=== PATIENT | male | born 1980 | race Caucasian/White ===

== ENCOUNTER 2016-07-25 19:14 | Inpatient (IN) | payer BC ==
[~2016-07-25] VITALS: Ht 198.1 cm; Wt 107.5 kg
[~2016-07-25 19:14] MED LIST: BACT2CRE TOP; CIPR500T4 PO; DOXY100T PO; LINE1TAB22 PO; LISI-363 PO; LORTA10 PO; ST J81CH PO
[2016-07-25 19:16] VITALS: BP 179/121; PULSE 90; RESP 14; TEMP 98.1; O2SAT 98
[2016-07-25] MEDS ORDERED: AMLO5TAB2 PO (20:17)
[2016-07-25] MEDS ORDERED: VENL37.5 PO (20:17)
[2016-07-25] MEDS ORDERED: SUBO8MIS SL (20:17)
[2016-07-25] MEDS ORDERED: LISI-515 PO (20:17)
[2016-07-25] MEDS ORDERED: amLODIPine BESYLATE 5 MG TAB PO ONE (20:30)
[2016-07-25] MEDS ORDERED: LISINOPRIL 20 MG TAB PO ONE (20:30)
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
[2016-07-25 20:45] LABS: AUTOMATED NEUTROPHIL # 3.5 TH/MM3 (1.8-7.7); BASOPHIL % 0.5 % (0.0-2.0); EOSINOPHIL # 0.2 TH/MM3 (0-0.4); EOSINOPHIL % 2.7 % (0.0-4.0); HEMATOCRIT 38.8 % (39.0-51.0); HEMO FLAGS DIFF FINAL; LYMPH % 37.8 % (9.0-44.0); LYMPHOCYTE # 2.8 TH/MM3 (1.0-4.8); MEAN CELL VOLUME 90.6 FL (80.0-100.0); MEAN CORPUSCULAR HEMOGLOBIN 31.1 PG (27.0-34.0); MEAN CORPUSCULAR HGB CONC 34.4 % (32.0-36.0); MONO % 11.5 % (0.0-8.0); NEUT % 47.5 % (16.0-70.0); PLATELET COUNT 242 TH/MM3 (150-450); RED BLOOD COUNT 4.28 MIL/MM3 (4.50-5.90); WHITE BLOOD COUNT 7.4 TH/MM3 (4.0-11.0)
[2016-07-25 20:51] LABS: BLOOD, URINE NEG (NEG); COMMENT (UR) CULT NOT INDICATED; CULTURE IF INDICATED CULT NOT INDICATED; GLUCOSE,URINE NEG (NEG); KETONE, URINE NEG (NEG); NITRITE,URINE NEG (NEG); PH, URINE 5.5 (5.0-8.5); URINE COLOR YELLOW (YELLW/STRAW)
[2016-07-25 20:56] LABS: AMPHETAMINE, URINE NEG (NEG); BARBITURATES, URINE NEG (NEG); COCAINE, URINE NEG (NEG)
[2016-07-25 21:06] LABS: ALKALINE PHOSPHATASE 72 U/L (45-117); ALT (GPT) 58 U/L (12-78); ANION GAP 8 MEQ/L (5-15); AST (GOT) 28 U/L (15-37); BICARBONATE 27.3 MEQ/L (21.0-32.0); BLOOD UREA NITROGEN 24 MG/DL (7-18); CHLORIDE 104 MEQ/L (98-107); GLOMERULAR FILTRATION RATE 53 ML/MIN (>89); SODIUM (NA) 139 MEQ/L (136-145); TOTAL BILIRUBIN ADULT 0.4 MG/DL (0.2-1.0)
--- NOTE | 2016-07-25 21:06 | PD ---
Data Data Last Documented VS Vital Signs Date Time Temp Pulse Resp B/P Pulse Ox O2 Delivery O2 Flow Rate FiO2 07/25/16 23:03 68 16 148/98 97 Room Air 07/25/16 19:16 98.1 Orders Complete Blood Count With Diff (07/25/16 19:44) Comprehensive Metabolic Panel (07/25/16 19:44) Urinalysis - C+S If Indicated (07/25/16 19:44) Iv Access Insert/Monitor (07/25/16 19:44) Psych Screen (07/25/16 19:44) Drug Screen, Random Urine (07/25/16 19:44) Alcohol (Ethanol) (07/25/16 19:44) Salicylates (Aspirin) (07/25/16 19:44) Tylenol (Acetaminophen) (07/25/16 19:44) Vascular Access Team Consult PRN (07/25/16 20:05) Vascular Poc Ultrasound (07/25/16 ) Lisinopril (Prinivil) (07/25/16 20:30) Amlodipine (Norvasc) (07/25/16 20:30) Sodium Chlor 0.9% 1000 Ml Inj (Ns 1000 M (07/25/16 21:15) Labs Laboratory Tests Test 07/25/16 07/25/16 20:25 20:30 White Blood Count 7.4 TH/MM3 Red Blood Count 4.28 MIL/MM3 Hemoglobin 13.3 GM/DL Hematocrit 38.8 % Mean Corpuscular Volume 90.6 FL Mean Corpuscular Hemoglobin 31.1 PG Mean Corpuscular Hemoglobin 34.4 % Concent Red Cell Distribution Width 13.0 % Platelet Count 242 TH/MM3 Mean Platelet Volume 8.0 FL Neutrophils (%) (Auto) 47.5 % Lymphocytes (%) (Auto) 37.8 % Monocytes (%) (Auto) 11.5 % Eosinophils (%) (Auto) 2.7 % Basophils (%) (Auto) 0.5 % Neutrophils # (Auto) 3.5 TH/MM3 Lymphocytes # (Auto) 2.8 TH/MM3 Monocytes # (Auto) 0.8 TH/MM3 Eosinophils # (Auto) 0.2 TH/MM3 Basophils # (Auto) 0.0 TH/MM3 CBC Comment DIFF FINAL Differential Comment Sodium Level 139 MEQ/L Potassium Level 4.0 MEQ/L Chloride Level 104 MEQ/L Carbon Dioxide Level 27.3 MEQ/L Anion Gap 8 MEQ/L Blood Urea Nitrogen 24 MG/DL Creatinine 1.49 MG/DL Estimat Glomerular Filtration 53 ML/MIN Rate Random Glucose 95 MG/DL Calcium Level 8.8 MG/DL Total Bilirubin 0.4 MG/DL Aspartate Amino Transf 28 U/L (AST/SGOT) Alanine Aminotransferase 58 U/L (ALT/SGPT) Alkaline Phosphatase 72 U/L Total Protein 7.5 GM/DL Albumin 3.7 GM/DL Salicylates Level LESS THAN 1.7 MG/DL Acetaminophen Level LESS THAN 2.0 MCG/ML Ethyl Alcohol Level LESS THAN 3 MG/DL Urine Color YELLOW Urine Turbidity CLEAR Urine pH 5.5 Urine Specific [place] 1.024 Urine Protein NEG mg/dL Urine Glucose (UA) NEG mg/dL Urine Ketones NEG mg/dL Urine Occult Blood NEG Urine Nitrite NEG Urine Bilirubin NEG Urine Urobilinogen LESS THAN 2.0 MG/DL Urine Leukocyte Esterase NEG Urine WBC LESS THAN 1 /hpf Microscopic Urinalysis Comment CULT NOT INDICATED Urine Opiates Screen POS Urine Barbiturates Screen NEG Urine Amphetamines Screen NEG Urine Benzodiazepines Screen NEG Urine Cocaine Screen NEG Urine Cannabinoids Screen NEG MDM Supervised Visit with MITCH: Yes Narrative Course Patient care assumed from Chantel BUTTERFIELD at 2100. Patient is a 36-year-old male presents with very vague suicidal ideations and feeling down and depressed. He does admit to cocaine use. He would like to see a psychiatrist. His labs show very modest elevation in creatinine to 1.4. His last visit 0.8 visit before that was 1.1. Patient was given a liter of normal saline. He has no other complaints or warrants medical workup. On my evaluation the patient is fairly withdrawn. He would like to see psychiatry. He is medically stable for psychiatric evaluation and disposition. He is on a voluntary basis at this time. Diagnosis Primary Impression: Substance induced mood disorder Condition: Stable Magen Bacon MD Jul 25, 2016 21:06
[2016-07-25 21:08] LABS: ACETAMINOPHEN LESS THAN 2.0 MCG/ML (10.0-30.0)
[2016-07-25] MEDS ORDERED: SODIUM CHLOR 0.9% 1000 ML INJ 1,000 ML IV ONE (21:15)
[2016-07-25 23:03] VITALS: BP 148/98; PULSE 68; RESP 16; O2SAT 97
[2016-07-26 00:49] VITALS: BP 138/81; PULSE 83; RESP 18; O2SAT 97
[2016-07-26 02:36] VITALS: BP 125/72; PULSE 70; RESP 18; O2SAT 97
[2016-07-26 06:25] VITALS: BP 145/70; PULSE 75; RESP 18; O2SAT 97
[2016-07-26 11:25] VITALS: BP 133/78; PULSE 68; RESP 16; TEMP 97.7; O2SAT 98
[2016-07-26] MEDS: amLODIPine BESYLATE 5 MG TAB PO SCH (15:25)
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
[2016-07-26] MEDS ORDERED: ACETAMINOPHEN 325 MG TAB PO PRN (15:45)
[2016-07-26] MEDS ORDERED: MAGNESIUM HYDROXIDE SUSP 30 ML CUP PO PRN (15:45)
[2016-07-26] MEDS ORDERED: ALUMINUM/MAGNESIUM/SIMETH 30 ML CUP PO PRN (15:45)
[2016-07-26] MEDS: LISINOPRIL 20 MG TAB PO SCH (20:53)
[2016-07-27 05:30] VITALS: BP 144/91; PULSE 79; RESP 18; TEMP 97.9; O2SAT 96
[2016-07-27] MEDS ORDERED: LORazepam 2 MG TAB PO ONE (09:00)
[2016-07-27] MEDS ORDERED: ONDANSETRON ODT 4 MG TAB PO ONE (09:00)
[2016-07-27] MEDS: LISINOPRIL 20 MG TAB PO SCH (09:00)
[2016-07-27] MEDS: amLODIPine BESYLATE 5 MG TAB PO SCH (09:00)
--- NOTE | 2016-07-27 15:40 | HHI.HP ---
Provisional Diagnosis Admission Date Jul 26, 2016 at 15:38 [place] I. Substance induced mood disorder, opiate use disorder on Suboxone [place] II. Deferred [place] III. Hepatitis C [place] IV. Chronic medical problems, history of opiate use [place] V. 55 Certification of Person's Competence To Provide Express and Informed Consent I have personally examined Matthew Yanez , a person being served at [facility] on, Jul 27, 2016 15:24. Express and informed consent means consent voluntarily given in writing, by a competent person, after sufficient explanation and disclosure of the subject matter involved to enable the person to make a knowing and willful decision without any element of force, fraud, deceit, duress, or other form of constraint or coercion. This person is 18 years of age or older, is not now known to be incompetent to consent to treatment with a guardian advocate, and does not have a health care surrogate or proxy currently making medical treatment decisions. I have found this person to be one of the following: [X] Competent to provide express and informed consent, as defined above, for voluntary admission to this facility and is competent to provide express and informed consent for treatment. He/she has the consistent capacity to make well reasoned, willful, and knowing decisions concerning his or her medical or mental health treatment. The person fully and consistently understands the purpose of the admission for examination/placement and is fully capable of personally exercising all rights assured under [place] Incompetent to provide express and informed consent to voluntary admission, and this is incompetent to provide express and informed consent to treatment. The person must be transferred to involuntary status and a petition for a guardian advocate filed with the Circuit Court. [] Refusing to provide express and informed consent to voluntary admission but is competent to provide express and informed consent for treatment. The person must be discharged or transferred to involuntary status. Form shall be completed within 24 hours of a person's arrival at the receiving facility and filed in the clinical record of each person: 1. Admitted on a voluntary basis 2. Permitted to provide express and informed consent to his/her own treatment 3. Allowed to transfer from involuntary to voluntary status 4. Prior to permitting a person to consent to his or her own treatment after having been previously found incompetent to consent to treatment. History of Present Illness Capacity: Has Capacity HPI As per Ms. Constance Georges documentation in the ER:Patient is a 36-year-old male with history of depression and substance use disorder who presents to emergency for evaluation of depression and suicidal ideations.He reports that last week he attempted to overdosed on Ambien while in the presence of a friend who made him spit the medication out. He went to [facility] but dis not like the doctor and the medication he prescribed there so he left. He reports he has continued to feel depressed with anhedonia, low energy, increase sleep as well as continuing to have suicidal thoughts. He lives on the 8th floor and he thinks about jumping off the [employer] . He is currently in psychiatric treatment with Dr. Cantu and she prescribed Wellbutrin approximately 1 month ago. He took the medication x 2 weeks but discontinued it because he felt worse. Previously he was treated by Dr. Valerie Hernandez x 2 years but reports that he did not like her or get along well with her. In 2005 while he was in [facility] he was prescribed Prozac and Vistaril and took these medications x 6 months but again reports that he had no positive clinical response to such medications. Patient has a past hx of IV drug use and used x 4 years. His drug of choice was Dilaudid. He stopped using this in October 2015 and has been on Suboxone. He relapsed approximately one month ago and used x 2 weeks. He reports that he is no longer using substances although he reported to ED provider that he had been using for the [past 4- 5 days.Patient is alert, oriented, engaging. His speech is clear and logical. There is no indication that he is experiencing any psychosis and no daniele. His mood is reported as depressed with low energy, anhedonia, hopelessness. At this time he is requesting inpatient treatment in order to stabilize his symptoms as well as to decrease his suicidal thoughts. The patient is a 36-year-old man, domiciled alone in [facility], , but , unemployed, with psychiatric history of depression, no previous psychiatric hospitalizations, no previous suicidal attempts, active outpatient care with Dr. Simmons, he is on Wellbutrin 300 mg daily, history of IV drug use, opiate use disorder, now on Suboxone 8 mg daily, medical history of hypertension and hepatitis C in [facility], who was admitted in the psychiatric unit after being transferred from [facility] in voluntary basis due to depressive symptoms and suicidal ideation. Patient stated that he overdosed with Ambien about a week ago. On psychiatric evaluation today patient endorses improved mood, denies anhedonia, denies anxiety, denies daniele, denies psychotic symptoms. He says that he is willing to continue his psychiatric care as an outpatient. He denies suicidal and homicidal ideation at this moment, he denies visual and auditory hallucinations. Patient is future oriented, is able to endorse protective factors. Collateral information from his parents, his mother Sarah Yanez, was obtained, she clarifies that she feels fine with discharge , she will come and milk pickup driver herself her some with her and would make sure that he is safe and continue his medical and psychiatric care. Review of Systems Constitutional: DENIES: Diaphoretic episodes, Fatigue, Fever, Weight gain, Weight loss, Chills, Dizziness, Change in appetite, Night Sweats Endocrine: DENIES: Heat/cold intolerance, Polydipsia, Polyuria, Polyphagia Eyes: DENIES: Blurred vision, Diplopia, Eye inflammation, Eye pain, Vision loss , Photosensitivity, Double Vision Ears, nose, mouth, throat: DENIES: Tinnitus, Hearing loss, Vertigo, Nasal discharge, Oral lesions, Throat pain, Hoarseness, Ear Pain, Running Nose, Epistaxis, Sinus Pain, Toothache, Odynophagia Integumentary: DENIES: Abnormal pigmentation, Nail changes, Pruritus, Rash Hematologic/lymphatic: DENIES: Bruising, Lymphadenopathy Immunologic/allergic: DENIES: Eczema, Urticaria Neurologic: DENIES: Abnormal gait, Headache, Localized weakness, Paresthesias, Seizures, Speech Problems, Tremor, Poor Balance Substance Abuse History Drugs/Alcohol past 12 months Patient has history of opiate use disorder, he has been clean for about 3 months , he is on Suboxone admitted Past Family Social History Coded Allergies: Sulfa (Verified Allergy, Severe, PT STS SKIN PEELS OFF., 07/25/16) *MDRO Multi-Drug Resistant Organism (Verified Allergy, Unknown, 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/16) MRSA Reported Medications Buprenorphine-Naloxone Sublingual Film (Suboxone Sublingual Film)8-2 Mg Film2 Film SL DAILY Unique ID number required: 07/25/16 Lisinopril 20 Mg Tab20 Mg PO BID #30 TAB Ref 0 07/25/16 Venlafaxine (Effexor)37.5 Mg Tab37.5 Mg PO DAILY #60 TAB Ref 0 07/25/16 Amlodipine 5 Mg Tab5 Mg PO DAILY #30 TAB Ref 0 07/25/16 Current Medications Medications (Trade) Dose Ordered Sig/[place]akeisha Route Start Time Stop Time Status Last Admin (Norvasc) 5 mg DAILY PO 07/26/16 15:15 07/27/16 09:00 (Prinivil) 20 mg BID PO 07/26/16 21:00 07/27/16 09:00 (Tylenol) 650 mg Q4H PRN PO 07/26/16 15:45 (Milk Of Magnesia Liq) 30 ml DAILY PRN PO 07/26/16 15:45 (Mag-Al Plus Susp Liq) 30 ml Q6H PRN PO 07/26/16 15:45 Family History He has a sister with bipolar disorder Social History Patient was born and raised in [place], he has been living in [facility], he lives in [facility] alone, he is but , unemployed, highest level of education is a degree in economy Physical Exam No withdrawal, no agitation, no EPS, no tremors on physical exam Vital Signs Vital Signs Date Time Temp Pulse Resp B/P Pulse Ox O2 Delivery O2 Flow Rate FiO2 07/27/16 05:30 97.9 79 18 144/91 96 07/26/16 06:25 Room Air Lab Results Toxicology is positive for opiates Mental Status Examination Appearance man, age appearing, good hygiene, calm and cooperative Speech: Unremarkable Orientation: x3 Memory: Unremarkable Thought Process: Logical Thought Content: Unremarkable Hallucination Type: None Suicidal Ideation: No Homicidal Ideation: No Judgment: WNL Affect: Good Mood: Appropriate, Angry Assessment & Plan Problem List: (1) Substance induced mood disorder Assessment & Plan: On psychiatric evaluation today the patient denies depressive symptoms, he denies anxiety, he denies perceptual disturbances, he denies visual and auditory hallucinations, he denies suicidal and homicidal ideation. Patient is logical, coherent and relevant. No evidence of psychosis , paranoia, delusions, agitation or aggressive behavior. On longitudinal observation patient has been calm and cooperative, compliant with indications and unit rules. Patient does not meet criteria for involuntary psychiatric admission at this moment. He can continue psychiatric care as an outpatient with Dr. Simmons, can continue current psychotropics. His parents, contacted for collateral, agree with plan. Goss act will be lifted. Patient will be discharged back home with his parents. ICD Code: F19.94 Assessment & Plan Estimated LOS: days Dylan Wilson MD Jul 27, 2016 15:40
== END 2016-07-27 15:50 | disposition home or self-care (01) | DRG 897 ==
LOC: NEPD 19:14 → NEDA 07-26 15:38 → H260 07-26 16:18
PROVIDERS: ADMIT Psychiatry & Neurology Psychiatry; ATTEND Psychiatry & Neurology Psychiatry
DX: F11.94 Opioid use, unspecified with opioid-induced mood disorder (principal); R45.851 Suicidal ideations; B19.20 Unspecified viral hepatitis C without hepatic coma; I10 Essential (primary) hypertension; F14.90 Cocaine use, unspecified, uncomplicated; F17.210 Nicotine dependence, cigarettes, uncomplicated; Z88.2 Allergy status to sulfonamides; Z81.8 Family history of other mental and behavioral disorders; Z91.5 Personal history of self-harm
CPT/HCPCS: 80053; 80307; 81001; 85025; 96360; J7030

== ENCOUNTER 2016-08-09 15:17 | Emergency (ER) | payer BC ==
[~2016-08-09] VITALS: Ht 198.1 cm; Wt 103.0 kg
[~2016-08-09 15:17] MED LIST changes: +AMLO5TAB2 PO; -BACT2CRE TOP; -CIPR500T4 PO; -DOXY100T PO; -LINE1TAB22 PO; -LISI-363 PO; +LISI-515 PO; -LORTA10 PO; -ST J81CH PO; +SUBO8MIS SL; +VENL37.5 PO
[2016-08-09 15:18] VITALS: BP 162/103; PULSE 96; RESP 15; TEMP 97.8; O2SAT 96
--- NOTE | 2016-08-09 16:10 | PD ---
HPI Chief Complaint: Suicide Ideation/Attempt Time Seen by Provider: 16:10 Travel History International Travel<30 days: No Contact w/Intl Traveler<30days: No Traveled to known affect area: No History of Present Illness HPI 28-year-old male presents to the emergency Department voluntarily for psychiatric evaluation, suicidal ideations. Patient states he is admitted approximately 3 weeks ago after attempting to overdose on Ambien. He states that he left AMA due to the hospital not letting him take his own prescribed Harvoni for hepatitis C. He states however, he still has depression and suicidal ideations. He denies a plan at this time. He does report a history depression, hepatitis C, hypertension. He is on Effexor, Harvoni, lisinopril, amlodipine. He denies any alcohol or illicit drug use. He states he smokes 2- 3 packs of cigarettes daily. He has no medical complaints at this time. PFSH Past Medical History Depression: Yes Cardiovascular Problems: Yes (HTN) Diminished Hearing: No Hepatitis: Yes (hep c) Hypertension: Yes Immunizations Current: Yes Past Surgical History Tonsillectomy: Yes Other Surgery: Yes (knee surgery) Social History Alcohol Use: No Tobacco Use: Yes (2CIGS A DAY) Substance Use: Yes (IV Dilaudid, states he hasn't used since last admission) Allergies-Medications (Allergen,Severity, Reaction): Coded Allergies: Sulfa (Verified Allergy, Severe, PT STS SKIN PEELS OFF., 08/09/16) Per pt. *MDRO Multi-Drug Resistant Organism (Verified Allergy, Unknown, 07/25/16) MRSA Reported Meds & Prescriptions Reported Meds & Active Scripts Active Reported Suboxone Sublingual Film (Buprenorphine-Naloxone Sublingual Film) 8-2 Mg Film 2 Film SL DAILY Unique ID number required: Lisinopril 20 Mg Tab 20 Mg PO BID Effexor (Venlafaxine HCl) 37.5 Mg Tab 37.5 Mg PO DAILY Amlodipine (Amlodipine Besylate) 5 Mg Tab 5 Mg PO DAILY Physical Exam Narrative GENERAL: Well-nourished, well-developed male patient, ambulatory. Afebrile. SKIN: Focused skin assessment warm/dry. HEAD: Normocephalic. Atraumatic. EYES: No scleral icterus. No injection or drainage. NECK: Supple, trachea midline. No JVD or lymphadenopathy. CARDIOVASCULAR: Regular rate and rhythm without murmurs, gallops, or rubs. RESPIRATORY: Breath sounds equal bilaterally. No accessory muscle use. Lungs sounds are clear to auscultation. GASTROINTESTINAL: Abdomen soft, non-tender, nondistended. MUSCULOSKELETAL: No cyanosis, or edema. PSYCHIATRIC: No delusional thought processes. No hallucinations. Data Data Last Documented VS Vital Signs Date Time Temp Pulse Resp B/P Pulse Ox O2 Delivery O2 Flow Rate FiO2 08/09/16 22:12 81 18 140/89 96 08/09/16 16:58 98.6 Orders Complete Blood Count With Diff (08/09/16 15:42) Comprehensive Metabolic Panel (08/09/16 15:42) Psych Screen (08/09/16 15:42) Drug Screen, Random Urine (08/09/16 15:42) Alcohol (Ethanol) (08/09/16 15:42) Salicylates (Aspirin) (08/09/16 15:42) Tylenol (Acetaminophen) (08/09/16 15:42) Diet Regular Basic (08/09/16 Dinner) Lisinopril (Prinivil) (08/09/16 18:45) Labs Laboratory Tests Test 08/09/16 08/09/16 18:00 19:00 Urine Opiates Screen POS Urine Barbiturates Screen NEG Urine Amphetamines Screen NEG Urine Benzodiazepines Screen NEG Urine Cocaine Screen NEG Urine Cannabinoids Screen NEG White Blood Count 11.8 TH/MM3 Red Blood Count 4.90 MIL/MM3 Hemoglobin 15.0 GM/DL Hematocrit 44.4 % Mean Corpuscular Volume 90.5 FL Mean Corpuscular Hemoglobin 30.6 PG Mean Corpuscular Hemoglobin 33.8 % Concent Red Cell Distribution Width 13.2 % Platelet Count 215 TH/MM3 Mean Platelet Volume 8.8 FL Neutrophils (%) (Auto) 61.3 % Lymphocytes (%) (Auto) 29.9 % Monocytes (%) (Auto) 7.0 % Eosinophils (%) (Auto) 1.1 % Basophils (%) (Auto) 0.7 % Neutrophils # (Auto) 7.3 TH/MM3 Lymphocytes # (Auto) 3.5 TH/MM3 Monocytes # (Auto) 0.8 TH/MM3 Eosinophils # (Auto) 0.1 TH/MM3 Basophils # (Auto) 0.1 TH/MM3 CBC Comment AUTO DIFF Differential Comment AUTO DIFF CONFIRMED Platelet Estimate NORMAL Platelet Morphology Comment NORMAL Red Cell Morphology Comment NORMAL Sodium Level 136 MEQ/L Potassium Level 3.7 MEQ/L Chloride Level 100 MEQ/L Carbon Dioxide Level 28.5 MEQ/L Anion Gap 8 MEQ/L Blood Urea Nitrogen 12 MG/DL Creatinine 1.28 MG/DL Estimat Glomerular Filtration 63 ML/MIN Rate Random Glucose 110 MG/DL Calcium Level 8.8 MG/DL Total Bilirubin 0.7 MG/DL Aspartate Amino Transf 30 U/L (AST/SGOT) Alanine Aminotransferase 50 U/L (ALT/SGPT) Alkaline Phosphatase 88 U/L Total Protein 8.1 GM/DL Albumin 3.8 GM/DL Salicylates Level LESS THAN 1.7 MG/DL Acetaminophen Level LESS THAN 2.0 MCG/ML Ethyl Alcohol Level LESS THAN 3 MG/DL MDM Medical Decision Making Medical Screen Exam Complete: Yes Emergency Medical Condition: Yes Medical Record Reviewed: Yes Differential Diagnosis Depression versus substance induced mood disorder versus bipolar disorder Narrative Course 36-year-old male presents to the emergency Department voluntarily for psychiatric evaluation. Patient has no medical complaints at this time. CBC, CMP, alcohol level, urine drug screen, salicylate level, acetaminophen level are ordered and pending. CBC shows slight leukocytosis of 11.8. CMP shows no acute abnormality. Alcohol level is less than 3. UDS is negative. Salicylate level is less than 1.7. Tylenol level is less than 2.0. Patient is medically cleared for psychiatric screening and disposition. Diagnosis Primary Impression: Depression Qualified Code: F32.9 - Depression, unspecified depression type Additional Instructions: Patient is medically cleared for psychiatric screening and disposition. Condition: Stable Betzy Cook Aug 09, 2016 16:10
[2016-08-09 16:58] VITALS: BP 160/72; PULSE 98; RESP 20; TEMP 98.6; O2SAT 99
[2016-08-09 18:35] VITALS: BP 170/100; PULSE 82; RESP 20; O2SAT 97
[2016-08-09 18:38] LABS: AMPHETAMINE, URINE NEG (NEG); BARBITURATES, URINE NEG (NEG); COCAINE, URINE NEG (NEG)
[2016-08-09] MEDS ORDERED: LISINOPRIL 20 MG TAB PO ONE (18:45)
[2016-08-09 19:30] LABS: AUTOMATED NEUTROPHIL # 7.3 TH/MM3 (1.8-7.7); BASOPHIL # 0.1 TH/MM3 (0-0.2); BASOPHIL % 0.7 % (0.0-2.0); EOSINOPHIL # 0.1 TH/MM3 (0-0.4); EOSINOPHIL % 1.1 % (0.0-4.0); HEMATOCRIT 44.4 % (39.0-51.0); LYMPH % 29.9 % (9.0-44.0); LYMPHOCYTE # 3.5 TH/MM3 (1.0-4.8); MEAN CELL VOLUME 90.5 FL (80.0-100.0); MEAN CORPUSCULAR HEMOGLOBIN 30.6 PG (27.0-34.0); MEAN CORPUSCULAR HGB CONC 33.8 % (32.0-36.0); NEUT % 61.3 % (16.0-70.0); PLATELET COUNT 215 TH/MM3 (150-450); RED CELL DISTRIBUTION WIDTH 13.2 % (11.6-17.2); WHITE BLOOD COUNT 11.8 TH/MM3 (4.0-11.0)
[2016-08-09 19:39] LABS: HEMO FLAGS AUTO DIFF
[2016-08-09 19:54] LABS: ALKALINE PHOSPHATASE 88 U/L (45-117); ALT (GPT) 50 U/L (12-78); ANION GAP 8 MEQ/L (5-15); AST (GOT) 30 U/L (15-37); BICARBONATE 28.5 MEQ/L (21.0-32.0); BLOOD UREA NITROGEN 12 MG/DL (7-18); CHLORIDE 100 MEQ/L (98-107); GLOMERULAR FILTRATION RATE 63 ML/MIN (>89); POTASSIUM 3.7 MEQ/L (3.5-5.1); SODIUM (NA) 136 MEQ/L (136-145); TOTAL BILIRUBIN ADULT 0.7 MG/DL (0.2-1.0)
[2016-08-09 19:55] LABS: ACETAMINOPHEN LESS THAN 2.0 MCG/ML (10.0-30.0)
[2016-08-09 20:13] LABS: PLATELET ESTIMATE SMEAR NORMAL (NORMAL); PLATELET MORPHOLOGY NORMAL (NORMAL); SCAN/DIFF AUTO DIFF CONFIRMED
[2016-08-09 22:12] VITALS: BP 140/89; PULSE 81; RESP 18; O2SAT 96
[2016-08-10 02:55] VITALS: BP 114/61; PULSE 67; RESP 18; O2SAT 98
[2016-08-10 06:33] VITALS: BP 118/69; PULSE 73; RESP 18; O2SAT 96
--- NOTE | 2016-08-10 13:09 | PD.CONS ---
Provisional Diagnosis Admission Date [place] I. Opiate dependence, history of bipolar disorder, [place] II. Unspecified personality disorder History of Present Illness Service Psychiatry Consult Requested By Primary Care Physician Klever Brito MD HPI The patient is a 36-year-old man, domiciled alone in [facility], , but , unemployed, with psychiatric history of depression, 1 previous psychiatric hospitalization here at [facility], he left [facility] 2 weeks ago, no previous suicidal attempts, personality disorder, active outpatient care with Dr. Simmons, he is on Wellbutrin 300 mg daily, history of IV drug use, opiate use disorder, now on Suboxone 8 mg daily, medical history of hypertension and hepatitis C in [facility], who came under Goss act to the ER due to depressive symptoms and suicidal ideation. Patient stated that he is running out office Suboxone and antidepressants. patient endorses improved mood , denies anhedonia, denies anxiety, denies daniele, denies psychotic symptoms. He says that he is willing to continue his psychiatric care as an outpatient. He denies suicidal and homicidal ideation at this moment, he denies visual and auditory hallucinations. Patient is future oriented, is able to endorse protective factors. Review of Systems Constitutional: DENIES: Diaphoretic episodes, Fatigue, Fever, Weight gain, Weight loss, Chills, Dizziness, Change in appetite, Night Sweats Endocrine: DENIES: Heat/cold intolerance, Polydipsia, Polyuria, Polyphagia Eyes: DENIES: Blurred vision, Diplopia, Eye inflammation, Eye pain, Vision loss , Photosensitivity, Double Vision Respiratory: DENIES: Apneas, Cough, Snoring, Wheezing, Hemoptysis, Sputum production, Shortness of breath Gastrointestinal: DENIES: Abdominal pain, Black stools, Bloody stools, Constipation, Diarrhea, Nausea, Vomiting, Difficulty Swallowing, Anorexia Genitourinary: DENIES: Sexual dysfunction, Urinary frequency, Urinary incontinence, Urgency, Hematuria, Dysuria, Nocturia, Penile Discharge, Testicular Pain, Testicular Swelling Musculoskeletal: DENIES: Joint pain, Muscle aches, Stiffness, Joint Swelling, Back pain, Neck pain Integumentary: DENIES: Abnormal pigmentation, Nail changes, Pruritus, Rash Hematologic/lymphatic: DENIES: Bruising, Lymphadenopathy Immunologic/allergic: DENIES: Eczema, Urticaria Neurologic: DENIES: Abnormal gait, Headache, Localized weakness, Paresthesias, Seizures, Speech Problems, Tremor, Poor Balance Psychiatric: DENIES: Anxiety, Confusion, Mood changes, Depression, Hallucinations, Agitation, Suicidal Ideation, Homicidal Ideation, Delusions Past Family Social History Coded Allergies: Sulfa (Verified Allergy, Severe, PT STS SKIN PEELS OFF., 08/09/16) Per pt. *MDRO Multi-Drug Resistant Organism (Verified Allergy, Unknown, 07/25/16) MRSA Reported Medications Buprenorphine-Naloxone Sublingual Film (Suboxone Sublingual Film)8-2 Mg Film2 Film SL DAILY Unique ID number required: 07/25/16 Lisinopril 20 Mg Tab20 Mg PO BID #30 TAB Ref 0 07/25/16 Venlafaxine (Effexor)37.5 Mg Tab37.5 Mg PO DAILY #60 TAB Ref 0 07/25/16 Amlodipine 5 Mg Tab5 Mg PO DAILY #30 TAB Ref 0 07/25/16 Family History He has a sister with bipolar disorder Social History Patient was born and raised in [place], he has been living in [facility] [place], he lives in [facility] alone, he is but , unemployed, highest level of education is a degree in economy Physical Exam Vital Signs Vital Signs Date Time Temp Pulse Resp B/P Pulse Ox O2 Delivery O2 Flow Rate FiO2 08/10/16 06:33 73 18 118/69 96 08/09/16 16:58 98.6 I/O 08/09/16 08/09/16 08/10/16 08:00 16:00 00:00 Output Total 340 ml Balance -340 ml Lab Results Toxicology positive for opiates Mental Status Examination Speech: Unremarkable Orientation: x3 Memory: Unremarkable Thought Process: Logical Thought Content: Unremarkable Hallucination Type: None Suicidal Ideation: No Homicidal Ideation: No Previous Homicide Attempts: No Judgment: WNL Affect if Inappropriate: Flat Mood: Appropriate Motor Activity: Normal gait Assessment & Plan Problem List: (1) Substance induced mood disorder Assessment & Plan: On psychiatric evaluation today the patient denies depressive symptoms, he denies anxiety, he denies perceptual disturbances, he denies visual and auditory hallucinations, he denies suicidal and homicidal ideation. Patient is logical, coherent and relevant. No evidence of psychosis , paranoia, delusions, agitation or aggressive behavior. On longitudinal observation patient has been calm and cooperative, no agitation or aggressive behavior reported. Patient does not meet criteria for involuntary psychiatric admission at this moment. He can continue psychiatric care as an outpatient with Dr. Simmons, can continue current psychotropics. ICD Code: F19.94 Assessment & Plan Estimated LOS: Dylan Holloway MD Aug 10, 2016 13:09
== END 2016-08-10 10:53 | disposition home or self-care (01) ==
LOC: NEPJ 15:17
DX: F11.24 Opioid dependence with opioid-induced mood disorder (principal); F31.9 Bipolar disorder, unspecified; F60.9 Personality disorder, unspecified; Z72.0 Tobacco use; I10 Essential (primary) hypertension; B19.20 Unspecified viral hepatitis C without hepatic coma; D72.829 Elevated white blood cell count, unspecified
CPT/HCPCS: 80053; 80307; 85025; 99284

== ENCOUNTER 2016-11-12 20:43 | Emergency (ER) | payer BC ==
[~2016-11-12] VITALS: Ht 198.1 cm; Wt 103.0 kg
[2016-11-12 20:46] VITALS: BP 174/92; PULSE 118; RESP 16; TEMP 97.4; O2SAT 99
[2016-11-12] MEDS ORDERED: HYDR50CA PO (21:53)
[2016-11-12] MEDS ORDERED: BREX1TAB4 PO (21:53)
--- NOTE | 2016-11-12 22:36 | PD ---
HPI Chief Complaint: Psychiatric Symptoms Time Seen by Provider: 22:18 Travel History International Travel<30 days: No Contact w/Intl Traveler<30days: No Traveled to known affect area: No History of Present Illness HPI Patient is a 36 year old male presents to the ER for evaluation of suicidal ideation. States has a history of depression and has been taking his medications but very depressed over the past few weeks over the passing of his father. States he lives in a condo and is thinking about jumping off the balcony. Denies any physical complaints. Denies abdominal pain, chest pain, sob, N/V/D/C, extremity pain. PFSH Past Medical History Depression: Yes Cardiovascular Problems: Yes (HTN) Diminished Hearing: No Hepatitis: Yes (hep c) Hypertension: Yes Immunizations Current: Yes Tetanus Vaccination: > 5 Years Influenza Vaccination: No Past Surgical History Tonsillectomy: Yes Other Surgery: Yes (knee surgery) Social History Alcohol Use: No Tobacco Use: Yes (2CIGS A DAY) Substance Use: Yes (IV Dilaudid, states he hasn't used since last admission) Allergies-Medications (Allergen,Severity, Reaction): Coded Allergies: Sulfa (Verified Allergy, Severe, PT STS SKIN PEELS OFF., 11/12/16) Per pt. *MDRO Multi-Drug Resistant Organism (Verified Allergy, Unknown, 11/12/16) MRSA Reported Meds & Prescriptions Reported Meds & Active Scripts Active Reported Rexulti (Brexpiprazole) 2 Mg Tab 2 Mg PO DAILY Hydroxyzine Pamoate 50 Mg Cap 50 Mg PO HS Lisinopril 20 Mg Tab 20 Mg PO BID Effexor (Venlafaxine HCl) 37.5 Mg Tab 37.5 Mg PO DAILY Amlodipine (Amlodipine Besylate) 5 Mg Tab 5 Mg PO DAILY Review of Systems Except as stated in HPI: all other systems reviewed are Neg Physical Exam Narrative GENERAL: WD/WN in nad. SKIN: Warm and dry. HEAD: Atraumatic. Normocephalic. EYES: Pupils equal and round. No scleral icterus. No injection or drainage. ENT: No nasal bleeding or discharge. Mucous membranes pink and moist. NECK: Trachea midline. No JVD. CARDIOVASCULAR: Regular rate and rhythm. RESPIRATORY: No accessory muscle use. Clear to auscultation. Breath sounds equal bilaterally. GASTROINTESTINAL: Abdomen soft, non-tender, nondistended. Hepatic and splenic margins not palpable. MUSCULOSKELETAL: Extremities without clubbing, cyanosis, or edema. No obvious deformities. NEUROLOGICAL: Awake and alert. No obvious cranial nerve deficits. Motor grossly within normal limits. Five out of 5 muscle strength in the arms and legs. Normal speech. PSYCHIATRIC: Depressed mood, nervous affect. Endorses SI with planning. Data Data Last Documented VS Vital Signs Date Time Temp Pulse Resp B/P Pulse Ox O2 Delivery O2 Flow Rate FiO2 11/13/16 01:00 78 18 142/83 98 Room Air 11/12/16 20:46 97.4 Orders Complete Blood Count With Diff (11/12/16 22:18) Comprehensive Metabolic Panel (11/12/16 22:18) Psych Screen (11/12/16 22:18) Drug Screen, Random Urine (11/12/16 22:18) Alcohol (Ethanol) (11/12/16 22:18) Sodium Chlor 0.9% 1000 Ml Inj (Ns 1000 M (11/13/16 00:30) Sodium Chlor 0.9% 1000 Ml Inj (Ns 1000 M (11/13/16 00:30) Labs Laboratory Tests Test 11/12/16 11/12/16 22:30 22:50 White Blood Count 18.4 TH/MM3 Red Blood Count 4.54 MIL/MM3 Hemoglobin 14.3 GM/DL Hematocrit 41.7 % Mean Corpuscular Volume 91.8 FL Mean Corpuscular Hemoglobin 31.4 PG Mean Corpuscular Hemoglobin 34.2 % Concent Red Cell Distribution Width 13.9 % Platelet Count 294 TH/MM3 Mean Platelet Volume 7.9 FL Neutrophils (%) (Auto) 84.1 % Lymphocytes (%) (Auto) 6.8 % Monocytes (%) (Auto) 8.8 % Eosinophils (%) (Auto) 0.1 % Basophils (%) (Auto) 0.2 % Neutrophils # (Auto) 15.5 TH/MM3 Lymphocytes # (Auto) 1.2 TH/MM3 Monocytes # (Auto) 1.6 TH/MM3 Eosinophils # (Auto) 0.0 TH/MM3 Basophils # (Auto) 0.0 TH/MM3 CBC Comment DIFF FINAL Differential Comment Sodium Level 136 MEQ/L Potassium Level 4.7 MEQ/L Chloride Level 103 MEQ/L Carbon Dioxide Level 25.9 MEQ/L Anion Gap 7 MEQ/L Blood Urea Nitrogen 37 MG/DL Creatinine 1.98 MG/DL Estimat Glomerular Filtration 38 ML/MIN Rate Random Glucose 138 MG/DL Calcium Level 9.1 MG/DL Total Bilirubin 0.4 MG/DL Aspartate Amino Transf 29 U/L (AST/SGOT) Alanine Aminotransferase 101 U/L (ALT/SGPT) Alkaline Phosphatase 70 U/L Total Protein 8.7 GM/DL Albumin 4.4 GM/DL Ethyl Alcohol Level LESS THAN 3 MG/DL Urine Opiates Screen POS Urine Barbiturates Screen NEG Urine Amphetamines Screen NEG Urine Benzodiazepines Screen NEG Urine Cocaine Screen NEG Urine Cannabinoids Screen NEG MDM Medical Decision Making Medical Screen Exam Complete: Yes Emergency Medical Condition: Yes Differential Diagnosis Suicidal ideation, depression, adjustment disorder. Narrative Course Patient is a 36 year old male SI with planning. Patient meets laboy act criteria and one is placed by me. Basic labs ordered per protocol ad shows azotemia with mild elevation in Cr. Given IVF. Cr variable in past. This may be baseline. Needs to follow up with PCP in one week for repeat blood work. After fluids he is medically stable for psychiatric evaluation and disposition. Diagnosis Primary Impression: Dehydration Additional Impression: Suicidal ideation Condition: Stable Magen Bacon MD Nov 12, 2016 22:36
[2016-11-12 23:16] LABS: AUTOMATED NEUTROPHIL # 15.5 TH/MM3 (1.8-7.7); BASOPHIL % 0.2 % (0.0-2.0); EOSINOPHIL % 0.1 % (0.0-4.0); HEMATOCRIT 41.7 % (39.0-51.0); HEMO FLAGS DIFF FINAL; LYMPH % 6.8 % (9.0-44.0); LYMPHOCYTE # 1.2 TH/MM3 (1.0-4.8); MEAN CELL VOLUME 91.8 FL (80.0-100.0); MEAN CORPUSCULAR HEMOGLOBIN 31.4 PG (27.0-34.0); MEAN CORPUSCULAR HGB CONC 34.2 % (32.0-36.0); MONO % 8.8 % (0.0-8.0); NEUT % 84.1 % (16.0-70.0); PLATELET COUNT 294 TH/MM3 (150-450); RED BLOOD COUNT 4.54 MIL/MM3 (4.50-5.90); RED CELL DISTRIBUTION WIDTH 13.9 % (11.6-17.2); WHITE BLOOD COUNT 18.4 TH/MM3 (4.0-11.0)
[2016-11-12 23:25] LABS: AMPHETAMINE, URINE NEG (NEG); BARBITURATES, URINE NEG (NEG); COCAINE, URINE NEG (NEG)
[2016-11-12 23:33] LABS: ALT (GPT) 101 U/L (12-78); ANION GAP 7 MEQ/L (5-15); AST (GOT) 29 U/L (15-37); BICARBONATE 25.9 MEQ/L (21.0-32.0); BLOOD UREA NITROGEN 37 MG/DL (7-18); CHLORIDE 103 MEQ/L (98-107); GLOMERULAR FILTRATION RATE 38 ML/MIN (>89); POTASSIUM 4.7 MEQ/L (3.5-5.1); SODIUM (NA) 136 MEQ/L (136-145)
[2016-11-12 23:34] LABS: ALKALINE PHOSPHATASE 70 U/L (45-117); TOTAL BILIRUBIN ADULT 0.4 MG/DL (0.2-1.0)
[2016-11-13] MEDS ORDERED: SODIUM CHLOR 0.9% 1000 ML INJ 1,000 ML IV ONE ×2 (00:30)
[2016-11-13 01:00] VITALS: BP 142/83; PULSE 78; RESP 18; O2SAT 98
[2016-11-13 06:19] VITALS: BP 115/61; PULSE 77; RESP 18
[2016-11-13 11:35] VITALS: BP 112/62; PULSE 97; RESP 20; O2SAT 99
[2016-11-13 15:32] VITALS: BP 112/62; PULSE 97; RESP 20; O2SAT 99
[2016-11-13 22:13] VITALS: BP 106/60; PULSE 76; RESP 18; TEMP 97.6; O2SAT 96
[2016-11-14 02:03] VITALS: BP 106/54; PULSE 62; RESP 18; O2SAT 98
== END 2016-11-14 02:30 ==
LOC: NEPD 20:43 → NEPJ 11-14 02:30
DX: E86.0 Dehydration (principal); R45.851 Suicidal ideations; F32.9 Major depressive disorder, single episode, unspecified; I10 Essential (primary) hypertension; B19.20 Unspecified viral hepatitis C without hepatic coma; F17.210 Nicotine dependence, cigarettes, uncomplicated
CPT/HCPCS: 80053; 80307; 85025; 96360; 99284; J7030

== ENCOUNTER 2016-11-25 14:34 | Observation (INO) | payer BC ==
[~2016-11-25] VITALS: Ht 198.1 cm; Wt 102.0 kg
[~2016-11-25 14:34] MED LIST changes: +BREX1TAB4 PO; +HYDR50CA PO; -SUBO8MIS SL
[2016-11-25 14:37] VITALS: BP 160/91; PULSE 90; RESP 16; TEMP 97.6; O2SAT 100
--- NOTE | 2016-11-25 14:47 | PD ---
Physical Exam Date Seen by Provider: Nov 25, 2016 Time Seen by Provider: 14:46 Narrative 36 YOWM HERE FOR TYLENOL OD YEST. 24 TYLENOL PM. BIPOLAR MANIC VS REVIEWED AWAITING BED PLACEMENT Data Data Last Documented VS Vital Signs Date Time Temp Pulse Resp B/P Pulse Ox O2 Delivery O2 Flow Rate FiO2 11/25/16 14:37 97.6 90 16 160/91 100 Room Air MDM Supervised Visit with MITCH: No Condition: Stable Chan Argueta Nov 25, 2016 14:47
[2016-11-25 16:02] LABS: AUTOMATED NEUTROPHIL # 3.1 TH/MM3 (1.8-7.7); BASOPHIL % 0.6 % (0.0-2.0); EOSINOPHIL # 0.2 TH/MM3 (0-0.4); HEMATOCRIT 38.1 % (39.0-51.0); HEMO FLAGS DIFF FINAL; LYMPH % 40.7 % (9.0-44.0); LYMPHOCYTE # 2.8 TH/MM3 (1.0-4.8); MEAN CELL VOLUME 91.9 FL (80.0-100.0); MEAN CORPUSCULAR HGB CONC 33.7 % (32.0-36.0); MONO % 10.4 % (0.0-8.0); NEUT % 45.3 % (16.0-70.0); PLATELET COUNT 248 TH/MM3 (150-450); RED BLOOD COUNT 4.15 MIL/MM3 (4.50-5.90); RED CELL DISTRIBUTION WIDTH 13.9 % (11.6-17.2); WHITE BLOOD COUNT 6.8 TH/MM3 (4.0-11.0)
[2016-11-25 16:19] LABS: ANION GAP 3 MEQ/L (5-15); AST (GOT) 36 U/L (15-37); BICARBONATE 30.4 MEQ/L (21.0-32.0); BLOOD UREA NITROGEN 18 MG/DL (7-18); CHLORIDE 100 MEQ/L (98-107); GLOMERULAR FILTRATION RATE 57 ML/MIN (>89); POTASSIUM 4.1 MEQ/L (3.5-5.1); SODIUM (NA) 133 MEQ/L (136-145)
[2016-11-25 16:20] LABS: ALT (GPT) 78 U/L (12-78)
[2016-11-25 16:22] LABS: ALKALINE PHOSPHATASE 70 U/L (45-117); TOTAL BILIRUBIN ADULT 0.4 MG/DL (0.2-1.0)
[2016-11-25 16:25] LABS: ACETAMINOPHEN LESS THAN 2.0 MCG/ML (10.0-30.0); ALCOHOL LESS THAN 3 MG/DL (0-5)
--- NOTE | 2016-11-25 19:12 | PD ---
HPI Chief Complaint: Psychiatric Symptoms Time Seen by Provider: 17:26 Travel History International Travel<30 days: No Contact w/Intl Traveler<30days: No Traveled to known affect area: No History of Present Illness HPI 36-year-old male came to the emergency room with history of depression, anxiety and daniele. Patient has psych history and is on medication but says the medications have not been helping. He hasn't slept in past 3-4 days and started taking Tylenol PM. He overdosed on 24 pills between 2 AM to 2 PM yesterday. Patient was fully aware of overdosing on these medications. He was taken by his mother to [facility] where after hearing his story they wanted the patient to be medically cleared and hence he is here. He had blood test done while he was in the waiting room and they were within acceptable limits. However given the Tylenol overdose a second Tylenol level is needed. I have explained this to the patient. PFSH Past Medical History Narrative Medical List of his past medical, surgical, social and family history is reviewed from the nursing note. Asthma: Yes Depression: Yes Cardiovascular Problems: Yes (HTN) Diminished Hearing: No Hepatitis: Yes (hep c) Hypertension: Yes Psychiatric: Yes (depression, bipolar) Immunizations Current: Yes Tetanus Vaccination: Unknown Past Surgical History Surgical History: No Previous Surgery Tonsillectomy: Yes Other Surgery: Yes (knee surgery) Social History Alcohol Use: No Tobacco Use: Yes Substance Use: No Allergies-Medications (Allergen,Severity, Reaction): Coded Allergies: Sulfa (Sulfonamide Antibiotics) (Verified Allergy, Severe, PT STS SKIN PEELS OFF., 11/25/16) Per pt. *MDRO Multi-Drug Resistant Organism (Verified Allergy, Unknown, 11/25/16) MRSA Comments List of his allergies reviewed from the nursing note. Reported Meds & Prescriptions Reported Meds & Active Scripts Active Reported Rexulti (Brexpiprazole) 2 Mg Tab 2 Mg PO DAILY Hydroxyzine Pamoate 50 Mg Cap 50 Mg PO HS Lisinopril 20 Mg Tab 20 Mg PO BID Effexor (Venlafaxine HCl) 37.5 Mg Tab 150 Mg PO DAILY Amlodipine (Amlodipine Besylate) 5 Mg Tab 5 Mg PO DAILY Narrative Medication List of his home medications reviewed from the nursing note. Review of Systems Except as stated in HPI: all other systems reviewed are Neg Physical Exam Narrative GENERAL: Awake, alert, anxious SKIN: Focused skin assessment warm/dry. HEAD: Atraumatic. Normocephalic. EYES: Pupils equal and round. No scleral icterus. No injection or drainage. ENT: No nasal bleeding or discharge. Mucous membranes pink and moist. NECK: Trachea midline. No JVD. CARDIOVASCULAR: Regular rate and rhythm. No murmur appreciated. RESPIRATORY: No accessory muscle use. Clear to auscultation. Breath sounds equal bilaterally. GASTROINTESTINAL: Abdomen soft, non-tender, nondistended. Hepatic and splenic margins not palpable. MUSCULOSKELETAL: No obvious deformities. No clubbing. No cyanosis. No edema. NEUROLOGICAL: Awake and alert. No obvious cranial nerve deficits. Motor grossly within normal limits. Normal speech. PSYCHIATRIC: Appropriate mood and affect; insight and judgment normal. Data Data Last Documented VS Vital Signs Date Time Temp Pulse Resp B/P Pulse Ox O2 Delivery O2 Flow Rate FiO2 11/25/16 19:25 89 16 139/79 100 Room Air 11/25/16 14:37 97.6 Orders Complete Blood Count With Diff (11/25/16 14:48) Comprehensive Metabolic Panel (11/25/16 14:48) Drug Screen, Random Urine (11/25/16 14:48) Alcohol (Ethanol) (11/25/16 14:48) Salicylates (Aspirin) (11/25/16 14:48) Tylenol (Acetaminophen) (11/25/16 14:48) Electrocardiogram (11/25/16 ) Tylenol (Acetaminophen) (11/25/16 19:30) Hepatic Functional Panel (11/25/16 18:58) Prothrombin Time / Inr (Pt) (11/25/16 18:58) Sodium Chloride 0.9% Flush (Ns Flush) (11/25/16 20:45) Acetylcysteine 20% Liq (Mucomyst 20% Liq (11/25/16 20:45) Acetylcysteine 20% Liq (Mucomyst 20% Liq (11/25/16 20:45) Admit Order (Ed Use Only) (11/25/16 20:54) Labs Laboratory Tests Test 11/25/16 11/25/16 11/25/16 15:15 18:58 19:15 White Blood Count 6.8 TH/MM3 Red Blood Count 4.15 MIL/MM3 Hemoglobin 12.8 GM/DL Hematocrit 38.1 % Mean Corpuscular Volume 91.9 FL Mean Corpuscular Hemoglobin 31.0 PG Mean Corpuscular Hemoglobin 33.7 % Concent Red Cell Distribution Width 13.9 % Platelet Count 248 TH/MM3 Mean Platelet Volume 7.4 FL Neutrophils (%) (Auto) 45.3 % Lymphocytes (%) (Auto) 40.7 % Monocytes (%) (Auto) 10.4 % Eosinophils (%) (Auto) 3.0 % Basophils (%) (Auto) 0.6 % Neutrophils # (Auto) 3.1 TH/MM3 Lymphocytes # (Auto) 2.8 TH/MM3 Monocytes # (Auto) 0.7 TH/MM3 Eosinophils # (Auto) 0.2 TH/MM3 Basophils # (Auto) 0.0 TH/MM3 CBC Comment DIFF FINAL Differential Comment Sodium Level 133 MEQ/L Potassium Level 4.1 MEQ/L Chloride Level 100 MEQ/L Carbon Dioxide Level 30.4 MEQ/L Anion Gap 3 MEQ/L Blood Urea Nitrogen 18 MG/DL Creatinine 1.40 MG/DL Estimat Glomerular Filtration 57 ML/MIN Rate Random Glucose 90 MG/DL Calcium Level 8.4 MG/DL Total Bilirubin 0.4 MG/DL 0.4 MG/DL Aspartate Amino Transf 36 U/L 42 U/L (AST/SGOT) Alanine Aminotransferase 78 U/L 77 U/L (ALT/SGPT) Alkaline Phosphatase 70 U/L 65 U/L Total Protein 7.2 GM/DL 7.1 GM/DL Albumin 3.5 GM/DL 3.4 GM/DL Salicylates Level LESS THAN 1.7 MG/DL Urine Opiates Screen NEG Acetaminophen Level LESS THAN 2.0 LESS THAN 2.0 MCG/ML MCG/ML Urine Barbiturates Screen NEG Urine Amphetamines Screen NEG Urine Benzodiazepines Screen NEG Urine Cocaine Screen NEG Urine Cannabinoids Screen NEG Ethyl Alcohol Level LESS THAN 3 MG/DL Direct Bilirubin 0.1 MG/DL Indirect Bilirubin 0.3 MG/DL Prothrombin Time 10.8 SEC Prothromb Time International 1.0 RATIO Ratio MDM Medical Decision Making Medical Screen Exam Complete: Yes Emergency Medical Condition: Yes Medical Record Reviewed: Yes Differential Diagnosis Tylenol overdose, Tylenol toxicity, major depression, anxiety Narrative Course 7:26 PM poison control recommended a and Tylenol level in 4 hours from the first one along with repeat LFTs and coags. These were ordered but patient did not want any of the test to be done and wanted to leave. Given the fact that this is an intentional overdose and patient is not medically cleared to be seen by psych I was obligated to Goss act him for his own safety. Currently he is waiting for the second set of labs. The case has been signed over to the oncoming ER physician. Procedures EKG Prior to Arrival: No Condition: Stable Ladonna Garcia MD Nov 25, 2016 19:12
[2016-11-25 19:25] VITALS: BP 139/79; PULSE 89; RESP 16; O2SAT 100
--- NOTE | 2016-11-25 19:42 | PD ---
Physical Exam Narrative General: The patient is a well-developed well-nourished male in no acute distress, pressure speech on examination. Head and Neck exam: Head is normocephalic atraumatic. Eyes: Pupils are equal round and reactive to light. Nose: Midline septum with pink mucous membranes Mouth: Dentition unremarkable. Moist mucus membranes. Posterior oropharynx is not erythematous. No tonsillar hypertrophy. Uvula midline. Airway patent. Neck: No palpable lymphadenopathy. No nuchal rigidity. No thyromegaly. Cardiovascular: Regular rate and rhythm without murmurs, gallops, or rubs. Lungs: Clear to auscultation bilaterally. No wheezes, rhonchi, or rales. Abdomen: Soft, without tenderness to palpation in all 4 quadrants of the abdomen. No guarding, rebound, or rigidity. Normal bowel sounds are audible. No tenderness on palpation of McBurney's point. Extremities: No clubbing, cyanosis, or edema. 2+ pulses in all 4 extremities. No calf tenderness on palpation Neurologic Exam: Grossly nonfocal. Skin Exam: No rash noted. Intact skin that is warm and dry. Data Data Last Documented VS Vital Signs Date Time Temp Pulse Resp B/P Pulse Ox O2 Delivery O2 Flow Rate FiO2 11/25/16 19:25 89 16 139/79 100 Room Air 11/25/16 14:37 97.6 Orders Complete Blood Count With Diff (11/25/16 14:48) Comprehensive Metabolic Panel (11/25/16 14:48) Drug Screen, Random Urine (11/25/16 14:48) Alcohol (Ethanol) (11/25/16 14:48) Salicylates (Aspirin) (11/25/16 14:48) Tylenol (Acetaminophen) (11/25/16 14:48) Electrocardiogram (11/25/16 ) Tylenol (Acetaminophen) (11/25/16 19:30) Hepatic Functional Panel (11/25/16 18:58) Prothrombin Time / Inr (Pt) (11/25/16 18:58) Sodium Chloride 0.9% Flush (Ns Flush) (11/25/16 20:45) Acetylcysteine 20% Liq (Mucomyst 20% Liq (11/25/16 20:45) Acetylcysteine 20% Liq (Mucomyst 20% Liq (11/25/16 20:45) Admit Order (Ed Use Only) (11/25/16 20:54) Labs Laboratory Tests Test 11/25/16 11/25/16 11/25/16 15:15 18:58 19:15 White Blood Count 6.8 TH/MM3 Red Blood Count 4.15 MIL/MM3 Hemoglobin 12.8 GM/DL Hematocrit 38.1 % Mean Corpuscular Volume 91.9 FL Mean Corpuscular Hemoglobin 31.0 PG Mean Corpuscular Hemoglobin 33.7 % Concent Red Cell Distribution Width 13.9 % Platelet Count 248 TH/MM3 Mean Platelet Volume 7.4 FL Neutrophils (%) (Auto) 45.3 % Lymphocytes (%) (Auto) 40.7 % Monocytes (%) (Auto) 10.4 % Eosinophils (%) (Auto) 3.0 % Basophils (%) (Auto) 0.6 % Neutrophils # (Auto) 3.1 TH/MM3 Lymphocytes # (Auto) 2.8 TH/MM3 Monocytes # (Auto) 0.7 TH/MM3 Eosinophils # (Auto) 0.2 TH/MM3 Basophils # (Auto) 0.0 TH/MM3 CBC Comment DIFF FINAL Differential Comment Sodium Level 133 MEQ/L Potassium Level 4.1 MEQ/L Chloride Level 100 MEQ/L Carbon Dioxide Level 30.4 MEQ/L Anion Gap 3 MEQ/L Blood Urea Nitrogen 18 MG/DL Creatinine 1.40 MG/DL Estimat Glomerular Filtration 57 ML/MIN Rate Random Glucose 90 MG/DL Calcium Level 8.4 MG/DL Total Bilirubin 0.4 MG/DL 0.4 MG/DL Aspartate Amino Transf 36 U/L 42 U/L (AST/SGOT) Alanine Aminotransferase 78 U/L 77 U/L (ALT/SGPT) Alkaline Phosphatase 70 U/L 65 U/L Total Protein 7.2 GM/DL 7.1 GM/DL Albumin 3.5 GM/DL 3.4 GM/DL Salicylates Level LESS THAN 1.7 MG/DL Urine Opiates Screen NEG Acetaminophen Level LESS THAN 2.0 LESS THAN 2.0 MCG/ML MCG/ML Urine Barbiturates Screen NEG Urine Amphetamines Screen NEG Urine Benzodiazepines Screen NEG Urine Cocaine Screen NEG Urine Cannabinoids Screen NEG Ethyl Alcohol Level LESS THAN 3 MG/DL Direct Bilirubin 0.1 MG/DL Indirect Bilirubin 0.3 MG/DL Prothrombin Time 10.8 SEC Prothromb Time International 1.0 RATIO Ratio MDM Medical Record Reviewed: Yes Supervised Visit with MITCH: No Narrative Course During the course of the patients emergency department visit, the patients history, examination, and differential diagnosis were reviewed with the patient. The patient had IV access obtained and blood work sent for analysis. The patient was placed on a cardiac surgeon with oximetry and blood pressure monitoring. Dr. Garcia checked this patient's case out to me at the conclusion of her shift. Please see her complete history and physical. The patients laboratory studies were reviewed and remarkable for a white count of 6.8, hemoglobin 12.8, platelets 248 with monocytes 10.4, CMP is remarkable for an anion gap of 3, creatinine 1.40, GFR 57, Calcium 8.4, Tylenol level is less than 2 The patient is under a Goss act from Dr. Garcia. The patient is awaiting repeat liver function tests, INR, Tylenol level. The patient's repeat Tylenol level continued to be less than 2, however his liver function tests were remarkable for an increase in his AST to 42. PT 10.8, INR 1.0. Poison control was contacted again by the patient's nurse to discuss the lab abnormalities. They recommended that the patient be admitted for observation and a repeat Tylenol level and liver function tests be done as an inpatient in the next 9-12 hours. He also recommended starting by mouth Mucomyst. The patient was started on Mucomyst. The patient will be admitted to the medical service. The patients results were discussed with the patient, including the plan of care. I explained that further testing and/ or monitoring is indicated based on the patients history, examination, and/ or laboratory findings. Therefore, I recommended admission for additional evaluation. The patient expressed understanding and was agreeable with this plan. The patient was admitted to the hospital in stable condition and sent to a bed under the care of the [facility]. Physician Communication Physician Communication The patient's case was discussed with Cristian Sanchez he did agree to admit the patient for further evaluation and treatment at this time. Diagnosis Primary Impression: Depression Qualified Code: F32.9 - Depression, unspecified depression type Additional Impression: Tylenol overdose Qualified Code: T39.1X1A - Accidental acetaminophen overdose, initial encounter Admitting Information Admitting Physician Requests: Admit Laxmi Graham MD Nov 25, 2016 19:42
[2016-11-25 19:46] LABS: PROTHROMBIN TIME - PATIENT 10.8 SEC (9.8-11.6)
[2016-11-25 20:16] LABS: TOTAL BILIRUBIN ADULT 0.4 MG/DL (0.2-1.0)
[2016-11-25 20:18] LABS: INDIRECT BILIRUBIN 0.3 MG/DL (0.0-0.8)
[2016-11-25] MEDS ORDERED: SODIUM CHLORIDE 0.9% FLUSH 10 ML FLUSH IVF PRN (20:45)
[2016-11-25] MEDS ORDERED: ACETYLCYSTEINE 20% 6,000 MG/30 ML ORAL SOLN VIAL PO ONE (20:45)
[2016-11-25] MEDS: ACETYLCYSTEINE 20% 6,000 MG/30 ML ORAL SOLN VIAL PO SCH (20:45)
[2016-11-25] MEDS ORDERED: SENNOSIDES 8.6 MG TAB PO PRN (21:30)
[2016-11-25] MEDS ORDERED: SODIUM CHLORIDE 0.9% FLUSH 10 ML FLUSH IV FLUSH PRN (21:30)
[2016-11-25] MEDS ORDERED: NALOXONE HCL 0.4 MG/ML AMP IV PRN (21:30)
[2016-11-25] MEDS ORDERED: ONDANSETRON HCL 4 MG/2 ML VIAL IVP PRN (21:30)
[2016-11-25] MEDS: SODIUM CHLOR 0.9% 1000 ML INJ 1,000 ML IV SCH (21:54)
[2016-11-26] MEDS: ACETYLCYSTEINE 20% 6,000 MG/30 ML ORAL SOLN VIAL PO SCH ×6 (00:45→20:45)
[2016-11-26 00:57] VITALS: BP 178/80; PULSE 85; RESP 20; TEMP 97.8; O2SAT 97
[2016-11-26 04:58] VITALS: BP 131/73; PULSE 62; RESP 18; TEMP 98.5; O2SAT 94
[2016-11-26 08:30] VITALS: BP 134/84; PULSE 82; RESP 18; TEMP 98; O2SAT 97
[2016-11-26] MEDS: SODIUM CHLOR 0.9% 1000 ML INJ 1,000 ML IV SCH ×2 (09:37→17:29)
[2016-11-26] MEDS: SODIUM CHLORIDE 0.9% FLUSH 10 ML FLUSH IV FLUSH SCH ×2 (09:39→21:00)
[2016-11-26] MEDS: ENOXAPARIN SODIUM 40 MG/0.4 ML SYRINGE SQ SCH (09:40)
[2016-11-26] MEDS: PANTOPRAZOLE SOD 40 MG DELAYED RELEASE TAB PO SCH (09:53)
--- NOTE | 2016-11-26 10:10 | PD.PSY.CON ---
Provisional Diagnosis Admission Date Nov 25, 2016 at 20:56 Philo I. Bipolar disorder type I, most recent episode manic, opiates use disorder, sustained full remission Philo II. Unspecified personality disorder Philo III. Hypertension Philo IV. History of substance abuse, manipulative became Philo V. 50 History of Present Illness Service Psychiatry Consult Requested By Suicidal attempt Reason for Consult Suicidal attempt Primary Care Physician Klever Brito MD HPI The patient is a 36-year-old man, domiciled alone in [place], divorce, unemployed, with psychiatric history bipolar disorder, opiate use disorder, in sustained full remission, 2 previous psychiatric hospitalizations, he was hospitalized here at [facility] in July, he was under my care, history of manipulative and drug-seeking behavior, 2 previous suicidal attempts, he was discharged from [facility] about week ago, outpatient care in [facility], he is on Effexor 150, Latuda 20 mg twice a day, he has medical history hypertension, who came to the emergency room stating that hasn't slept in past 3-4 days and started taking Tylenol PM. He overdosed on 24 pills between 2 AM to 2 PM yesterday. Patient was fully aware off overdosing on these medications. He was taken by his mother to [facility] where after hearing his story they wanted the patient to be medically cleared and hence he is here. He had blood test done while he was in the waiting room and they were within acceptable limits. However given the Tylenol overdose a second Tylenol level is needed. The patients laboratory studies were reviewed and remarkable for a white count of 6.8, hemoglobin 12.8, platelets 248 with monocytes 10.4, CMP is remarkable for an anion gap of 3, creatinine 1.40, GFR 57, Calcium 8.4, Tylenol level is less than 2. The patient is under a Goss act from Dr. Carlisle. Patient seen and evaluated in the observation area of the ER. Patient is calm , cooperative. She is states that he has not slept for about 4 days now. Last night he overdosed with Tylenol PM, took about 24 pills "no with suicidal intentions, but with the intention to go to sleep". Patient says that for one week he has been acutely manic, not sleeping, restless, talking very fast, feeling in the edge, very anxious. Patient says he was admitted in [facility] for about 2 weeks, was discharged a week ago, but he was not given Latuda in the pharmacy "because his no cover, and I became manic again". At this moment the patient denies mood symptoms, he denies suicidal and homicidal ideation, denies visual and auditory hallucinations. Patient is oriented 3, no attention deficit, no fluctuation of consciousness. There is no pressured speech, no delusions, no paranoia, no loosening of associations, no word salad during this evaluation, but patient reports that at night he feels restless, and he is unable to sleep "and that is the way I used to feel before I become floridly manic". Patient reports that he has been free of drugs, not taking only alcohol for months. Patient expresses interest in being admitted to live for 24 hours for hospitalization of symptoms and also medication adjustment. Review of Systems Constitutional: DENIES: Diaphoretic episodes, Fatigue, Fever, Weight gain, Weight loss, Chills, Dizziness, Change in appetite, Night Sweats Endocrine: DENIES: Heat/cold intolerance, Polydipsia, Polyuria, Polyphagia Eyes: DENIES: Blurred vision, Diplopia, Eye inflammation, Eye pain, Vision loss , Photosensitivity, Double Vision Respiratory: DENIES: Apneas, Cough, Snoring, Wheezing, Hemoptysis, Sputum production, Shortness of breath Cardiovascular: DENIES: Chest pain, Palpitations, Syncope, Dyspnea on Exertion , PND, Lower Extremity Edema, Orthopnea, Claudication Gastrointestinal: DENIES: Abdominal pain, Black stools, Bloody stools, Constipation, Diarrhea, Nausea, Vomiting, Difficulty Swallowing, Anorexia Musculoskeletal: DENIES: Joint pain, Muscle aches, Stiffness, Joint Swelling, Back pain, Neck pain Hematologic/lymphatic: DENIES: Bruising, Lymphadenopathy Immunologic/allergic: DENIES: Eczema, Urticaria Neurologic: DENIES: Abnormal gait, Headache, Localized weakness, Paresthesias, Seizures, Speech Problems, Tremor, Poor Balance Psychiatric: COMPLAINS OF: Anxiety, DENIES: Confusion, Mood changes, Depression, Hallucinations, Agitation, Suicidal Ideation, Homicidal Ideation, Delusions Past Family Social History Coded Allergies: Sulfa (Sulfonamide Antibiotics) (Verified Allergy, Severe, PT STS SKIN PEELS OFF., 11/25/16) Per pt. *MDRO Multi-Drug Resistant Organism (Verified Allergy, Unknown, 11/25/16) MRSA Reported Medications Brexpiprazole (Rexulti)2 Mg Tab2 Mg PO DAILY 11/12/16 Hydroxyzine Pamoate 50 Mg Cap50 Mg PO HS Ref 0 11/12/16 Lisinopril 20 Mg Tab20 Mg PO BID #30 TAB Ref 0 07/25/16 Venlafaxine (Effexor)37.5 Mg Tab37.5 Mg PO DAILY #60 TAB Ref 0 07/25/16 Amlodipine 5 Mg Tab5 Mg PO DAILY #30 TAB Ref 0 07/25/16 Current Medications Medications (Trade) Dose Ordered Sig/Lakeisha Route Start Time Stop Time Status Last Admin Acetylcysteine 7150 mg 7,150 mg Q4H PO 11/25/16 20:45 11/26/16 09:39 (NS 1000 ml Inj) 1,000 ml @ 100 mls/hr Q10H IV 11/25/16 21:29 11/26/16 09:37 (NS Flush) 2 ml UNSCH PRN IV FLUSH 11/25/16 21:30 (NS Flush) 2 ml BID IV FLUSH 11/26/16 09:00 11/26/16 09:39 (Zofran Inj) 4 mg Q6H PRN IVP 11/25/16 21:30 (Lovenox Inj) 40 mg Q24H SQ 11/26/16 09:00 11/26/16 09:40 (Narcan Inj) 0.4 mg UNSCH PRN IV 11/25/16 21:30 (Senokot) 17.2 mg Q12H PRN PO 11/25/16 21:30 (Ativan) 1 mg Q8H PRN PO 11/25/16 21:30 (Protonix) 40 mg DAILY PO 11/26/16 09:30 11/26/16 09:53 Family History Sister and mother are both bipolar Social History Patient was born and raised in [place] [facility], he lives alone in his apartment in [place] [facility] [place], unemployed, single, supported by parents, highest level of education is a master degree in economics. Patient's Strengths (min. 2) Verbal communication, outpatient psychiatric care Physical Exam A physical exam the patient does not present any withdrawal symptoms, no tremors , shakiness, no stiffness, no EPS, no psychomotor agitation or retardation, no gait disturbance Vital Signs Vital Signs Date Time Temp Pulse Resp B/P Pulse Ox O2 Delivery O2 Flow Rate FiO2 11/26/16 08:30 98.0 82 18 134/84 97 11/25/16 19:25 Room Air Lab Results Labs Laboratory Tests Test 11/25/16 11/25/16 11/25/16 15:15 18:58 19:15 White Blood Count 6.8 TH/MM3 Red Blood Count 4.15 MIL/MM3 Hemoglobin 12.8 GM/DL Hematocrit 38.1 % Mean Corpuscular Volume 91.9 FL Mean Corpuscular Hemoglobin 31.0 PG Mean Corpuscular Hemoglobin 33.7 % Concent Red Cell Distribution Width 13.9 % Platelet Count 248 TH/MM3 Mean Platelet Volume 7.4 FL Neutrophils (%) (Auto) 45.3 % Lymphocytes (%) (Auto) 40.7 % Monocytes (%) (Auto) 10.4 % Eosinophils (%) (Auto) 3.0 % Basophils (%) (Auto) 0.6 % Neutrophils # (Auto) 3.1 TH/MM3 Lymphocytes # (Auto) 2.8 TH/MM3 Monocytes # (Auto) 0.7 TH/MM3 Eosinophils # (Auto) 0.2 TH/MM3 Basophils # (Auto) 0.0 TH/MM3 CBC Comment DIFF FINAL Differential Comment Sodium Level 133 MEQ/L Potassium Level 4.1 MEQ/L Chloride Level 100 MEQ/L Carbon Dioxide Level 30.4 MEQ/L Anion Gap 3 MEQ/L Blood Urea Nitrogen 18 MG/DL Creatinine 1.40 MG/DL Estimat Glomerular Filtration 57 ML/MIN Rate Random Glucose 90 MG/DL Calcium Level 8.4 MG/DL Total Bilirubin 0.4 MG/DL 0.4 MG/DL Aspartate Amino Transf 36 U/L 42 U/L (AST/SGOT) Alanine Aminotransferase 78 U/L 77 U/L (ALT/SGPT) Alkaline Phosphatase 70 U/L 65 U/L Total Protein 7.2 GM/DL 7.1 GM/DL Albumin 3.5 GM/DL 3.4 GM/DL Salicylates Level LESS THAN 1.7 MG/DL Urine Opiates Screen NEG Acetaminophen Level LESS THAN 2.0 LESS THAN 2.0 MCG/ML MCG/ML Urine Barbiturates Screen NEG Urine Amphetamines Screen NEG Urine Benzodiazepines Screen NEG Urine Cocaine Screen NEG Urine Cannabinoids Screen NEG Ethyl Alcohol Level LESS THAN 3 MG/DL Direct Bilirubin 0.1 MG/DL Indirect Bilirubin 0.3 MG/DL Prothrombin Time 10.8 SEC Prothromb Time International 1.0 RATIO Ratio Mental Status Examination Appearance man, age appearing, good hygiene, [facility], he is calm and cooperative Speech: Unremarkable Orientation: x3 Memory: Unremarkable Thought Process: Logical Thought Content: Unremarkable Language Frequent and spontaneous Fund of Knowledge Adequate for level of education Hallucination Type: None Attention and Concentration: Good Suicidal Ideation: No Previous Suicide Attempts: Yes Homicidal Ideation: No Previous Homicide Attempts: No Judgment: Poor Affect: Irritable Mood: Irritable Motor Activity: Normal gait Assessment & Plan Problem List: (1) Bipolar 1 disorder, depressed, partial remission Assessment & Plan: On psychiatric evaluation today the patient reports 3-4 days of for insomnia, restlessness, manic behavior at night, mood swings , but denies depressive symptoms, denies hopelessness, denies helplessness, denies worthlessness. Patient denies suicidal or homicidal ideation, patient denies visual and auditory hallucinations. However, patient has overdose with Tylenol PM with the intention to "treat of bipolar insomnia ". Patient was recently discharged from [facility] after at 2 weeks hospitalization after a suicidal attempt, he has not been taking his medication as prescribed. At this moment the patient has an increased risk of suicidality and is to be admitted for safety and for medication management. Etiology of current presentation could be bipolar decompensation in the context of noncompliance, manipulative and drug seeking behavior should monitored closely. Will start outpatient medications, Seroquel 50 twice a day for bipolar depression. Avoid benzodiazepines and narcotics. Patient will be admitted to med psych unit or regular psychiatry of [facility], in voluntary basis for stabilization and safety. Extensive support, motivation and psychoeducation provided. ICD Code: F31.75 Assessment & Plan Estimated LOS: Dylan Holloway MD Nov 26, 2016 10:10
--- NOTE | 2016-11-26 10:11 | MH ---
cc: DUTCH BEJARANO MD DATE OF ADMISSION: 11/25/2016 CHIEF COMPLAINT Tylenol overdose, psychiatric symptoms. HISTORY OF PRESENT ILLNESS This is a 36-year-old male with a past medical/surgical history significant for asthma, depression, hypertension, hepatitis C, hyperlipidemia, bipolar disorder, who came to the ER at [facility] stating he has been unable to sleep for several nights and then he started taking Tylenol P.M. He overdosed about 24 pills between 2:00 a.m. and 2:00 p.m. yesterday. The patient was fully aware of overdose of these medications. He was taken by his mother to [facility] where after hearing this story they wanted the patient to be medically cleared and sent him to the [place]. He had a blood test done while he was in the waiting room that was within acceptable limits, however, given the Tylenol overdose a second Tylenol level is needed. The patient denies any suicidal ideation, intent or plan and said he does not want to kill himself and wants to sleep, and that is why he took 24 pills of 325 mg Tylenol PM. Other than that he denies any complaints. He is awake, alert and oriented x4. PAST MEDICAL/SURGICAL HISTORY As dictated above. SOCIAL HISTORY Denies drinking. He smoked for many years. Denies any drug abuse. He lives at home alone and is unemployed. FAMILY HISTORY Significant for a sister with bipolar disorder. ALLERGIES SULFA DRUGS. MEDICATIONS 1. Rexulti 2 mg p.o. daily. 2. Hydroxyzine 50 mg p.o. h.s. 3. Lisinopril 20 mg twice a day. 4. Effexor 37.5 mg p.o. daily. 5. Amlodipine 5 mg p.o. daily. REVIEW OF SYSTEMS All of the review of systems is negative at the time of the examination. PHYSICAL EXAMINATION GENERAL: This is a 36-year-old male lying on the bed, not in acute distress. VITAL SIGNS: Temperature 98.0, heart rate 82, respirations 18, blood pressure 134/84. O2 saturation 97% on room air. HEENT: Normocephalic, atraumatic. EOMI. PERRL. Oral mucosa moist. NECK: Supple. No visible thyromegaly or neck mass. Trachea is central. CV: Regular rate and rhythm. LUNGS: Respirations clear to auscultation bilaterally. ABDOMEN: Soft and nontender. Bowel sounds audible. EXTREMITIES: No cyanosis. No clubbing. Full range of motion of all extremities. NEUROLOGIC: Awake, alert, oriented x4. No focal deficits. SKIN: Warm and dry. PSYCH: The patient is cooperative. Mood and affect is normal. LABORATORY CBC is unremarkable except for hemoglobin 12.8, hematocrit 38.1 low. Harper percentage is high at 10.4. BMP is unremarkable except for sodium 133 low, BUN 18 normal, creatinine 1.40 high, GFR 57 low. AST is 42 high. Otherwise LFTs are normal. PT 10.8, INR 1.0. Salicylate is less than 1.7. Acetaminophen less than 2.0. Urine tox screen is negative. Ethyl alcohol level is less than 3. ASSESSMENT AND PLAN 1. This is a 36-year male who came to the ER diagnosed with Tylenol PM overdose. The patient's acetaminophen level is less than 2.0 x2. Urine tox screen is negative. The patient denies suicidal ideation, intent or plan. Psychiatry is consulted. Further recommendation per patient's progress. 2. History of hypertension. Continue home medication. Will monitor blood pressure. 3. History of depression. Continue with Effexor 37.5 mg p.o. daily. 4. History of bipolar disorder. Continue home medication. 5. DVT prophylaxis. Lovenox 40 mg subcutaneous daily. 6. GI prophylaxis. Protonix 40 mg p.o. daily. 7. Anemia. Will monitor H&H. 8. We are going to manage the patient on a daily basis and make recommendations on a daily basis. Dutch Bejarano MD EA/KAILA /9:24 AM /9:40 AM
[2016-11-26 11:57] VITALS: BP 134/76; PULSE 76; RESP 18; TEMP 97.8; O2SAT 99
[2016-11-26] MEDS: amLODIPine BESYLATE 5 MG TAB PO SCH (12:01)
[2016-11-26] MEDS: LISINOPRIL 20 MG TAB PO SCH ×2 (12:01→21:08)
[2016-11-26 12:34] LABS: BICARBONATE 26.2 MEQ/L (21.0-32.0); POTASSIUM 4.1 MEQ/L (3.5-5.1)
[2016-11-26 12:37] LABS: INDIRECT BILIRUBIN 0.6 MG/DL (0.0-0.8); TOTAL BILIRUBIN ADULT 0.8 MG/DL (0.2-1.0)
[2016-11-26] MEDS ORDERED: VENLAFAXINE HCL XR 37.5 MG CAP PO SCH (15:00)
[2016-11-26 18:03] VITALS: BP 143/93; PULSE 69; RESP 18; TEMP 98.2; O2SAT 96
[2016-11-26] MEDS: LORazepam 1 MG TAB PO PRN (21:09)
[2016-11-26] MEDS: QUEtiapine FUMARATE 25 MG TAB PO SCH (21:09)
[2016-11-26 22:23] VITALS: BP 117/60; PULSE 73; RESP 18; TEMP 98.1; O2SAT 96
[2016-11-27] VITALS (7 sets, daily range): BP systolic 107–136; BP diastolic 64–94; PULSE 66–90; RESP 17–19; TEMP 97.5–98.5; O2SAT 95–100
[2016-11-27] MEDS: ACETYLCYSTEINE 20% 6,000 MG/30 ML ORAL SOLN VIAL PO SCH ×4 (00:33→21:20)
--- NOTE | 2016-11-27 08:54 | EKG ---
Date Performed: 11/25/2016 Time Performed: 14:57:45 PTAGE: 36 years EKG: Sinus rhythm SEPTAL MYOCARDIAL INFARCTION ABNORMAL ECG PREVIOUS TRACING : 03/17/2011 17.38 Compared to prior tracing no significant change DOCTOR: Shayan Sinha Interpretating Date/Time 11/27/2016 08:50:55
[2016-11-27 09:25] LABS: AUTOMATED NEUTROPHIL # 3.1 TH/MM3 (1.8-7.7); BASOPHIL % 0.6 % (0.0-2.0); EOSINOPHIL # 0.2 TH/MM3 (0-0.4); EOSINOPHIL % 2.7 % (0.0-4.0); HEMATOCRIT 40.1 % (39.0-51.0); HEMO FLAGS DIFF FINAL; LYMPH % 35.3 % (9.0-44.0); LYMPHOCYTE # 2.1 TH/MM3 (1.0-4.8); MEAN CELL VOLUME 92.2 FL (80.0-100.0); MEAN CORPUSCULAR HEMOGLOBIN 31.7 PG (27.0-34.0); MEAN CORPUSCULAR HGB CONC 34.3 % (32.0-36.0); MONO % 9.1 % (0.0-8.0); NEUT % 52.3 % (16.0-70.0); PLATELET COUNT 246 TH/MM3 (150-450); RED BLOOD COUNT 4.35 MIL/MM3 (4.50-5.90); RED CELL DISTRIBUTION WIDTH 14.1 % (11.6-17.2)
--- NOTE | 2016-11-27 09:49 | HHI.PR ---
Subjective History of Present Illness Patient feeling better, no acute issue deny any suicidal/ homocidal ideation intent / plan. Review of Systems Constitutional Constitutional Remarks All ROS Normal. Vitals/Results Vital Signs Vital Signs Date Time Temp Pulse Resp B/P Pulse Ox O2 Delivery O2 Flow Rate FiO2 11/27/16 08:31 97.9 76 18 132/94 100 11/27/16 04:25 98.4 66 18 107/64 95 11/27/16 02:05 97.8 71 19 116/65 98 11/26/16 22:23 98.1 73 18 117/60 96 11/26/16 18:03 98.2 69 18 143/93 96 11/26/16 11:57 97.8 76 18 134/76 99 CBC/BMP: 11/27/16 0910 11/26/16 1141 Lab Results Laboratory Tests Test 11/26/16 11/26/16 11/27/16 11:41 12:04 09:10 Sodium Level 137 MEQ/L Potassium Level 4.1 MEQ/L Chloride Level 105 MEQ/L Carbon Dioxide Level 26.2 MEQ/L Anion Gap 6 MEQ/L Blood Urea Nitrogen 18 MG/DL Creatinine 1.27 MG/DL Estimat Glomerular Filtration 63 ML/MIN Rate Random Glucose 103 MG/DL Calcium Level 8.7 MG/DL Total Bilirubin 0.8 MG/DL Direct Bilirubin 0.2 MG/DL Indirect Bilirubin 0.6 MG/DL Aspartate Amino Transf 49 U/L (AST/SGOT) Alanine Aminotransferase 93 U/L (ALT/SGPT) Alkaline Phosphatase 68 U/L Total Protein 7.3 GM/DL Albumin 3.3 GM/DL Nasal Screen MRSA (PCR) MRSA NOT DETECTED White Blood Count 6.0 TH/MM3 Red Blood Count 4.35 MIL/MM3 Hemoglobin 13.8 GM/DL Hematocrit 40.1 % Mean Corpuscular Volume 92.2 FL Mean Corpuscular Hemoglobin 31.7 PG Mean Corpuscular Hemoglobin 34.3 % Concent Red Cell Distribution Width 14.1 % Platelet Count 246 TH/MM3 Mean Platelet Volume 7.0 FL Neutrophils (%) (Auto) 52.3 % Lymphocytes (%) (Auto) 35.3 % Monocytes (%) (Auto) 9.1 % Eosinophils (%) (Auto) 2.7 % Basophils (%) (Auto) 0.6 % Neutrophils # (Auto) 3.1 TH/MM3 Lymphocytes # (Auto) 2.1 TH/MM3 Monocytes # (Auto) 0.5 TH/MM3 Eosinophils # (Auto) 0.2 TH/MM3 Basophils # (Auto) 0.0 TH/MM3 CBC Comment DIFF FINAL Differential Comment Physical Exam General General Appearance: Well Developed, Well Nourished, No Acute Distress, Comfortable Eyes Eye Exam: Pupils Equal, Pupils Reactive, Sclera White, Extraocular Movement Intact Throat Throat Exam: Oral Mucosa [place] & Moist, Oral Pharynx Normal Neck Neck Exam: Neck Supple, Trachea Midline Pulmonary Resp Exam: Clear Bilaterally, Breath Sounds Equal, No Distress Cardiology CV Exam: Regular, Normal Sinus Rhythm Musculoskeletal MS Exam: Joints Intact Integumentary Skin Exam: Clear, Warm, Dry, Intact Extremeties Extremities Exam: No Edema Neurologic Neuro Exam: Alert, Awake, Oriented, Speech Clear, Moving All Extremities, No Focal Deficits Psychiatric Psych Exam: Appropriate Responses VTE Prophylaxis VTE Prophylaxis Device: SCDs PUD Prophylasis PUD Prophylaxis: Protonix Assessment/Plan Assessment/Plan ASSESSMENT AND PLAN 1. This is a 36-year male who came to the ER diagnosed with Tylenol PM overdose. The patient's acetaminophen level is less than 2.0 x2. Urine tox screen is negative. The patient denies suicidal ideation, intent or plan. Psychiatry input noted. need inpatient psych admission. Further recommendation per patient's progress. 2. History of hypertension. Continue home medication. Will monitor blood pressure. 3. History of depression. Continue with Effexor 37.5 mg p.o. daily. 4. History of bipolar disorder. Continue home medication. 5. DVT prophylaxis. Lovenox 40 mg subcutaneous daily. 6. GI prophylaxis. Protonix 40 mg p.o. daily. 7. Anemia. Will monitor H&H. 8. We are going to manage the patient on a daily basis and make recommendations on a daily basis. Medically cleared for inpatient psych admission. condition at discharge good. Activity as tolerated. Diet Cardiac. Medicine see discharge medicine list. Discussed Condition with: Patient Dutch Alba MD Nov 27, 2016 09:49
[2016-11-27 09:56] LABS: ANION GAP 6 MEQ/L (5-15); AST (GOT) 59 U/L (15-37); BICARBONATE 25.4 MEQ/L (21.0-32.0); BLOOD UREA NITROGEN 20 MG/DL (7-18); CHLORIDE 106 MEQ/L (98-107); GLOMERULAR FILTRATION RATE 62 ML/MIN (>89); POTASSIUM 4.4 MEQ/L (3.5-5.1); SODIUM (NA) 137 MEQ/L (136-145)
[2016-11-27 10:02] LABS: ALKALINE PHOSPHATASE 68 U/L (45-117); ALT (GPT) 101 U/L (12-78); TOTAL BILIRUBIN ADULT 0.5 MG/DL (0.2-1.0)
[2016-11-27] MEDS: PANTOPRAZOLE SOD 40 MG DELAYED RELEASE TAB PO SCH (10:40)
[2016-11-27] MEDS: LISINOPRIL 20 MG TAB PO SCH ×2 (10:40→21:21)
[2016-11-27] MEDS: QUEtiapine FUMARATE 25 MG TAB PO SCH ×2 (10:40→21:20)
[2016-11-27] MEDS: amLODIPine BESYLATE 5 MG TAB PO SCH (10:40)
[2016-11-27] MEDS: SODIUM CHLORIDE 0.9% FLUSH 10 ML FLUSH IV FLUSH SCH ×2 (10:41→21:00)
[2016-11-27] MEDS: ENOXAPARIN SODIUM 40 MG/0.4 ML SYRINGE SQ SCH (10:41)
[2016-11-27 10:43] LABS: ACETAMINOPHEN LESS THAN 2.0 MCG/ML (10.0-30.0)
[2016-11-27 11:16] LABS: APTT (PATIENT) 28.8 SEC (24.3-30.1); PROTHROMBIN TIME - PATIENT 10.9 SEC (9.8-11.6)
[2016-11-27] MEDS: VENLAFAXINE HCL XR 75 MG CAP PO SCH (13:18)
[2016-11-27] MEDS: SODIUM CHLOR 0.9% 1000 ML INJ 1,000 ML IV SCH ×2 (13:28→23:29)
[2016-11-27] MEDS: LORazepam 1 MG TAB PO PRN (21:20)
[2016-11-28] MEDS: ACETYLCYSTEINE 20% 6,000 MG/30 ML ORAL SOLN VIAL PO SCH ×2 (00:55→05:46)
[2016-11-28 06:14] VITALS: BP 127/91; PULSE 78; RESP 17; TEMP 97.6; O2SAT 98
[2016-11-28] MEDS: VENLAFAXINE HCL XR 75 MG CAP PO SCH (08:38)
[2016-11-28] MEDS: ENOXAPARIN SODIUM 40 MG/0.4 ML SYRINGE SQ SCH (08:38)
[2016-11-28] MEDS: amLODIPine BESYLATE 5 MG TAB PO SCH (08:38)
[2016-11-28] MEDS: LISINOPRIL 20 MG TAB PO SCH (08:38)
[2016-11-28] MEDS: PANTOPRAZOLE SOD 40 MG DELAYED RELEASE TAB PO SCH (08:38)
[2016-11-28] MEDS: LORazepam 1 MG TAB PO PRN (08:38)
[2016-11-28] MEDS: QUEtiapine FUMARATE 25 MG TAB PO SCH (08:38)
--- NOTE | 2016-11-28 09:47 | HHI.PR ---
Subjective History of Present Illness Patient feeling better, no acute issue deny any suicidal/ homocidal ideation intent / plan. ok to discharge home today f/u with finn vernon as advised. Review of Systems Constitutional Constitutional Remarks All ROS Normal. Vitals/Results Intake & Output 11/27/16 11/27/16 11/28/16 14:59 22:59 06:59 Intake Total 1300 ml Balance 1300 ml Intake Oral 550 ml IV Total 750 ml # Voids 4 Vital Signs Vital Signs Date Time Temp Pulse Resp B/P Pulse Ox O2 Delivery O2 Flow Rate FiO2 11/28/16 06:14 97.6 78 17 127/91 98 11/27/16 23:35 98.5 71 17 111/65 96 11/27/16 20:12 98.5 84 19 136/72 98 11/27/16 15:12 98.2 90 18 132/77 98 11/27/16 12:00 97.5 88 18 131/87 97 CBC/BMP: 11/27/16 0910 11/27/16 0910 Lab Results Laboratory Tests Test 11/27/16 10:50 Prothrombin Time 10.9 SEC Prothromb Time International 1.0 RATIO Ratio Activated Partial 28.8 SEC Thromboplast Time Physical Exam General General Appearance: Well Developed, Well Nourished, No Acute Distress, Comfortable Eyes Eye Exam: Pupils Equal, Pupils Reactive, Sclera White, Extraocular Movement Intact Throat Throat Exam: Oral Mucosa [place] & Moist, Oral Pharynx Normal Neck Neck Exam: Neck Supple, Trachea Midline Pulmonary Resp Exam: Clear Bilaterally, Breath Sounds Equal, No Distress Cardiology CV Exam: Regular, Normal Sinus Rhythm Musculoskeletal MS Exam: Joints Intact Integumentary Skin Exam: Clear, Warm, Dry, Intact Extremeties Extremities Exam: No Edema Neurologic Neuro Exam: Alert, Awake, Oriented, Speech Clear, Moving All Extremities, No Focal Deficits Psychiatric Psych Exam: Appropriate Responses VTE Prophylaxis VTE Prophylaxis Device: SCDs PUD Prophylasis PUD Prophylaxis: Protonix Assessment/Plan Assessment/Plan ASSESSMENT AND PLAN 1. This is a 36-year male who came to the ER diagnosed with Tylenol PM overdose. The patient's acetaminophen level is less than 2.0 x2. Urine tox screen is negative. The patient denies suicidal ideation, intent or plan. Psychiatry input noted. need inpatient psych admission. Further recommendation per patient's progress. 2. History of hypertension. Continue home medication. Will monitor blood pressure. 3. History of depression. Continue with Effexor 37.5 mg p.o. daily. 4. History of bipolar disorder. Continue home medication. 5. DVT prophylaxis. Lovenox 40 mg subcutaneous daily. 6. GI prophylaxis. Protonix 40 mg p.o. daily. 7. Anemia. Will monitor H&H. ok to discharge home today if ok with psychiatry.. f/u with finn vernon as advised. Medically cleared for discharge. condition at discharge good. Activity as tolerated. Diet Cardiac. Medicine see discharge medicine list. Discussed Condition with: Patient Dutch Alba MD Nov 28, 2016 09:47
[2016-11-28] MEDS ORDERED: SERO50TA PO (11:04)
--- NOTE | 2016-11-30 19:08 | MD ---
cc: DUTCH BEJARANO MD ADMISSION DATE: 11/25/2016 DISCHARGE DATE: 11/28/2016 DISPOSITION: Okay to discharge the patient home if okay with psychiatry. FOLLOW UP: The patient was advised to follow up with Christal as advised by psychiatry. CONDITION AT THE TIME OF DISCHARGE: Satisfactory. DISCHARGE ACTIVITY: As tolerated. DISCHARGE DIET: Cardiac diet. ALLERGIES: SULFA DRUGS. DISCHARGE MEDICATIONS: 1. Seroquel 50 milligrams twice a day. 2. Amlodipine 5 milligrams p.o. daily. 3. Rexulti 2 milligrams p.o. daily. 4. Hydroxyzine 50 milligrams p.o. at bedtime. 5. Lisinopril 20 milligrams twice a day. 6. Venlafaxine 150 milligrams p.o. daily. The patient was advised to follow up with the primary care physician and with psychiatry in one week. ADMITTING DIAGNOSIS: Tylenol overdose. DISCHARGE DIAGNOSIS: 1. Tylenol overdose, resolved. The patient's Tylenol level was normal. 2. History of hypertension. 3. Depression. 4. Bipolar disorder. 5. Schizophrenia. HOSPITAL COURSE: This is a 36-year-old male admitted with a Tylenol PM overdose. He took 24 pills. He was trying to sleep. His acetaminophen level was 2.0 x3. The patient said that he did not want to kill himself. He denies any suicidal or homicidal ideations, intent or plan. He said he was not able to sleep. His urine tox screen was negative. The patient was seen by the psychiatrist and Seroquel was started 50 milligrams twice a day. The patient remained stable during the hospital stay. The patient got [place] by Poison Control recommendations for a number of days whatever was required. The patient is being discharged in a satisfactory condition. The patient had a PT of 10.9, INR of 1.0, APTT of 28.8. The patient's BUN was 28, creatinine was 1.30 with a glucose of 62. AST was 59 and ALT was 101, which was high. Albumin was 3.4, normal. The patient's hemoglobin was 13.8. The patient was discharged in satisfactory condition. Further details in the medical record. Dutch Bejarano MD EA/AUSTIN /12:49 PM /6:58 PM
== END 2016-11-28 10:05 | disposition home or self-care (01) ==
LOC: NEPE 14:34 → UNDOADMIN 20:56 → NEDA 20:56 → INTOOBSV 21:32 → NEPGCP 11-26 00:08 → NEDA 11-26 00:08 → UNDODISIN 11-28 10:05
PROVIDERS: ADMIT Family Medicine; ATTEND Family Medicine
DX: T39.1X2A Poisoning by 4-Aminophenol derivatives, intentional self-harm, initial encounter (principal); F20.9 Schizophrenia, unspecified; I10 Essential (primary) hypertension; Y92.9 Unspecified place or not applicable; F31.9 Bipolar disorder, unspecified; J45.909 Unspecified asthma, uncomplicated; B19.20 Unspecified viral hepatitis C without hepatic coma; E78.5 Hyperlipidemia, unspecified; F17.200 Nicotine dependence, unspecified, uncomplicated; D64.9 Anemia, unspecified; Z79.899 Other long term (current) drug therapy
CPT/HCPCS: 76937; 80048; 80053; 80076; 80307; 85025; 85610; 85730; 87641; 93005; 96360; 96361; 96372; 99285; G0378; J1650; J7030

== ENCOUNTER 2016-12-15 12:58 | Observation (INO) | payer BC ==
[2016-12-15] VITALS (9 sets, daily range): BP systolic 99–126; BP diastolic 54–73; PULSE 73–110; RESP 16–24; TEMP 97.7–97.9; O2SAT 95–98
[~2016-12-15] VITALS: Ht 198.1 cm; Wt 100.0 kg
[~2016-12-15 12:58] MED LIST changes: +SERO50TA PO
[2016-12-15] MEDS ORDERED: SODIUM CHLOR 0.9% 1000 ML INJ 1,000 ML IV ONE ×2 (13:22→16:00)
[2016-12-15] MEDS ORDERED: LURA1TAB2 PO (13:28)
[2016-12-15] MEDS ORDERED: VIST50CA PO (13:28)
[2016-12-15] MEDS ORDERED: SODIUM CHLORIDE 0.9% FLUSH 10 ML FLUSH IVF PRN (13:30)
[2016-12-15] MEDS ORDERED: MECLIZINE HCL 25 MG TAB PO ONE (13:30)
--- NOTE | 2016-12-15 13:41 | PD ---
HPI Chief Complaint: Dizziness Time Seen by Provider: 13:24 Travel History International Travel<30 days: No Contact w/Intl Traveler<30days: No Traveled to known affect area: No History of Present Illness HPI 36-year-old male presents to emergency department with complaint of dizziness. He started multiple psych medications 3 days ago and 2 days ago started to feel dizzy with blurred vision. He had a near syncopal episode yesterday when he was doing some yard work. He stated he thought he would feel better if he doesn 't take his medication last night so he skipped his nightly meds but when he woke up this morning still felt dizzy with blurred vision so he decided to come in to get seen. Patient was seen a couple weeks ago at [facility] for a Tylenol overdose. Today he reports depression but denies any suicidal homicidal thoughts. He denies any chest pain or shortness of breath. He denies any abdominal pain nausea vomiting. But does report diarrhea that started a couple days ago. PFSH Past Medical History Asthma: Yes Blood Disorders: No Bipolar Disorder: Yes Anxiety: No Depression: Yes Heart Rhythm Problems: No Cancer: No Cardiovascular Problems: Yes (HTN) High Cholesterol: No Chemotherapy: No Chest Pain: No Congestive Heart Failure: No COPD: No Diminished Hearing: No Endocrine: No Gastrointestinal Disorders: Yes (HEP C ) Genitourinary: No Hepatitis: Yes (hep c) Hypertension: Yes Immune Disorder: No Musculoskeletal: No Neurologic: No Psychiatric: Yes (depression, bipolar) Reproductive: No Respiratory: Yes (ASTHMA) Immunizations Current: Yes Sleep Apnea: No Past Surgical History Tonsillectomy: Yes Other Surgery: Yes (LEFT knee surgery) Social History Alcohol Use: No Tobacco Use: Yes Substance Use: Yes (HEROIN) Allergies-Medications (Allergen,Severity, Reaction): Coded Allergies: Sulfa (Sulfonamide Antibiotics) (Verified Allergy, Severe, PT STS SKIN PEELS OFF., 12/15/16) Per pt. *MDRO Multi-Drug Resistant Organism (Verified Allergy, Unknown, 12/15/16) MRSA Reported Meds & Prescriptions Reported Meds & Active Scripts Active Seroquel (Quetiapine Fumarate) 50 Mg Tab 50 Mg PO BID Reported Vistaril (Hydroxyzine Pamoate) 50 Mg Cap 50 Mg PO TID Latuda (Lurasidone) 60 Mg Tab 60 Mg PO DAILY Rexulti (Brexpiprazole) 2 Mg Tab 2 Mg PO DAILY Lisinopril 20 Mg Tab 20 Mg PO BID Effexor (Venlafaxine HCl) 37.5 Mg Tab 150 Mg PO DAILY Amlodipine (Amlodipine Besylate) 5 Mg Tab 5 Mg PO DAILY Review of Systems Except as stated in HPI: all other systems reviewed are Neg Physical Exam Narrative GENERAL: Well-nourished well-developed male presents with complaint of dizziness and double vision with an onset of 2 days SKIN: Focused skin assessment warm/dry. HEAD: Atraumatic. Normocephalic. EYES: Pupils equal and round. No scleral icterus. No injection or drainage. ENT: No nasal bleeding or discharge. Mucous membranes pink and moist. NECK: Trachea midline. No JVD. CARDIOVASCULAR: Regular rate and rhythm. No murmur appreciated. RESPIRATORY: No accessory muscle use. Clear to auscultation. Breath sounds equal bilaterally. GASTROINTESTINAL: Abdomen soft, non-tender, nondistended. Hepatic and splenic margins not palpable. MUSCULOSKELETAL: No obvious deformities. No clubbing. No cyanosis. No edema. NEUROLOGICAL: Awake and alert. No obvious cranial nerve deficits. Motor grossly within normal limits. Normal speech. PSYCHIATRIC: Appropriate mood and affect; insight and judgment normal. Data Data Last Documented VS Vital Signs Date Time Temp Pulse Resp B/P (MAP) Pulse Ox O2 Delivery O2 Flow Rate FiO2 12/15/16 15:58 97.9 78 16 109/58 (75) 98 Room Air Orders Orders Electrocardiogram (12/15/16 13:22) Complete Blood Count With Diff (12/15/16 13:22) Comprehensive Metabolic Panel (12/15/16 13:22) Magnesium (Mg) (12/15/16 13:22) Ckmb (Isoenzyme) Profile (12/15/16 13:22) Troponin I (12/15/16 13:22) Urinalysis - C+S If Indicated (12/15/16 13:22) Ct Brain W/O Iv Contrast(Rout) (12/15/16 13:22) Blood Glucose (12/15/16 13:22) Ecg Monitoring (12/15/16 13:22) Iv Access Insert/Monitor (12/15/16 13:22) Oximetry (12/15/16 13:22) Sodium Chloride 0.9% Flush (Ns Flush) (12/15/16 13:30) Sodium Chlor 0.9% 1000 Ml Inj (Ns 1000 M (12/15/16 13:22) Orthostatic Vital Signs (12/15/16 13:22) Meclizine (Antivert) (12/15/16 13:30) Drug Screen, Random Urine (12/15/16 13:22) Urine Culture (12/15/16 13:35) CKMB (12/15/16 13:35) CKMB% (12/15/16 13:35) Sodium Chlor 0.9% 1000 Ml Inj (Ns 1000 M (12/15/16 16:00) Admit Order (Ed Use Only) (12/15/16 16:13) Labs Laboratory Tests Test 12/15/16 13:35 White Blood Count 8.5 TH/MM3 Red Blood Count 4.05 MIL/MM3 Hemoglobin 12.7 GM/DL Hematocrit 37.4 % Mean Corpuscular Volume 92.4 FL Mean Corpuscular Hemoglobin 31.4 PG Mean Corpuscular Hemoglobin Concent 34.0 % Red Cell Distribution Width 13.9 % Platelet Count 278 TH/MM3 Mean Platelet Volume 6.7 FL Neutrophils (%) (Auto) 64.7 % Lymphocytes (%) (Auto) 24.5 % Monocytes (%) (Auto) 9.2 % Eosinophils (%) (Auto) 1.0 % Basophils (%) (Auto) 0.6 % Neutrophils # (Auto) 5.5 TH/MM3 Lymphocytes # (Auto) 2.1 TH/MM3 Monocytes # (Auto) 0.8 TH/MM3 Eosinophils # (Auto) 0.1 TH/MM3 Basophils # (Auto) 0.0 TH/MM3 CBC Comment DIFF FINAL Differential Comment Urine Color YELLOW Urine Turbidity HAZY Urine pH 6.5 Urine Specific [place] 1.012 Urine Protein NEG mg/dL Urine Glucose (UA) NEG mg/dL Urine Ketones NEG mg/dL Urine Occult Blood NEG Urine Nitrite NEG Urine Bilirubin NEG Urine Urobilinogen LESS THAN 2.0 MG/DL Urine Leukocyte Esterase NEG Urine RBC LESS THAN 1 /hpf Urine WBC LESS THAN 1 /hpf Urine Bacteria MANY /hpf Urine Mucus MANY /lpf Microscopic Urinalysis Comment CULTURE INDICATED Blood Urea Nitrogen 34 MG/DL Creatinine 2.38 MG/DL Random Glucose 115 MG/DL Total Protein 8.0 GM/DL Albumin 3.7 GM/DL Calcium Level 8.5 MG/DL Magnesium Level 2.1 MG/DL Alkaline Phosphatase 79 U/L Aspartate Amino Transf (AST/SGOT) 34 U/L Alanine Aminotransferase (ALT/SGPT) 73 U/L Total Bilirubin 0.5 MG/DL Sodium Level 133 MEQ/L Potassium Level 4.6 MEQ/L Chloride Level 101 MEQ/L Carbon Dioxide Level 25.3 MEQ/L Anion Gap 7 MEQ/L Estimat Glomerular Filtration Rate 31 ML/MIN Total Creatine Kinase 133 U/L Creatine Kinase MB 2.5 NG/ML Troponin I LESS THAN 0.02 NG/ML Urine Opiates Screen NEG Urine Barbiturates Screen NEG Urine Amphetamines Screen NEG Urine Benzodiazepines Screen NEG Urine Cocaine Screen NEG Urine Cannabinoids Screen NEG MDM Medical Decision Making Medical Screen Exam Complete: Yes Emergency Medical Condition: Yes Medical Record Reviewed: Yes Differential Diagnosis TIA versus CVA versus electrolyte balance versus medication reaction versus ACS Narrative Course 36-year-old male presents to the emergency department with complaint of dizziness. EKG, CBC, CMP, magnesium, troponin, UA, drug screen, CT of the brain without contrast, blood glucose, orthostatic vital signs, 1 L normal saline bolus X2 ordered. EKG: SINUS RHYTHM, HEART RATE 84, CBC: Unremarkable, CMP: Sodium low at 133 BUN elevated at 34 creatinine elevated at 2.38 and GFR low at 31 otherwise unremarkable , MAG WITHIN NORMAL LIMITS AT 2.1, TROP LESS THAN 0.02, U/A: Many bacteria, culture indicated, DRUG SCREEN: Negative, CT negative for any acute disease process, BLOOD GLUCOSE 122, ORTHOSTATIC VITAL SIGNS: Unremarkable Seda Forte NP accepted admission for Dr. Cintron Diagnosis Primary Impression: Dehydration Additional Impressions: Depression Qualified Codes: F32.9 - Major depressive disorder, single episode, unspecified Acute kidney injury Admitting Information Admitting Physician Requests: Briseida Briceno Dec 15, 2016 13:40
[2016-12-15 13:59] LABS: AUTOMATED NEUTROPHIL # 5.5 TH/MM3 (1.8-7.7); BASOPHIL % 0.6 % (0.0-2.0); EOSINOPHIL # 0.1 TH/MM3 (0-0.4); HEMATOCRIT 37.4 % (39.0-51.0); HEMO FLAGS DIFF FINAL; LYMPH % 24.5 % (9.0-44.0); LYMPHOCYTE # 2.1 TH/MM3 (1.0-4.8); MEAN CELL VOLUME 92.4 FL (80.0-100.0); MEAN CORPUSCULAR HEMOGLOBIN 31.4 PG (27.0-34.0); MONO % 9.2 % (0.0-8.0); NEUT % 64.7 % (16.0-70.0); PLATELET COUNT 278 TH/MM3 (150-450); RED BLOOD COUNT 4.05 MIL/MM3 (4.50-5.90); RED CELL DISTRIBUTION WIDTH 13.9 % (11.6-17.2); WHITE BLOOD COUNT 8.5 TH/MM3 (4.0-11.0)
[2016-12-15 14:03] LABS: BACTERIA, URINE MANY /hpf; BLOOD, URINE NEG (NEG); COMMENT (UR) CULTURE INDICATED; CULTURE IF INDICATED CULTURE INDICATED; GLUCOSE,URINE NEG (NEG); KETONE, URINE NEG (NEG); MUCUS URINE MANY /lpf (OCC); NITRITE,URINE NEG (NEG); PH, URINE 6.5 (5.0-8.5); URINE COLOR YELLOW (YELLW/STRAW)
[2016-12-15 14:17] LABS: ALT (GPT) 73 U/L (12-78); ANION GAP 7 MEQ/L (5-15); AST (GOT) 34 U/L (15-37); BICARBONATE 25.3 MEQ/L (21.0-32.0); BLOOD UREA NITROGEN 34 MG/DL (7-18); CHLORIDE 101 MEQ/L (98-107); GLOMERULAR FILTRATION RATE 31 ML/MIN (>89); MAGNESIUM 2.1 MG/DL (1.5-2.5); POTASSIUM 4.6 MEQ/L (3.5-5.1); SODIUM (NA) 133 MEQ/L (136-145)
[2016-12-15 14:21] LABS: ALKALINE PHOSPHATASE 79 U/L (45-117); CREATINE KINASE 133 U/L (39-308); TOTAL BILIRUBIN ADULT 0.5 MG/DL (0.2-1.0)
[2016-12-15 14:34] LABS: CKMB 2.5 NG/ML (0.5-3.6)
--- NOTE | 2016-12-15 15:33 | RADRPT ---
EXAM DATE/TIME: 12/15/2016 15:21 [facility] COMPARISON: No previous studies available for comparison. INDICATIONS : Altered mental status, dizziness. RADIATION DOSE: 56.35 CTDIvol (mGy) MEDICAL HISTORY : Hypertension. Hepatitis C. SURGICAL HISTORY : None. ENCOUNTER: Initial ACUITY: 1 day PAIN SCALE: 0/10 LOCATION: cranial TECHNIQUE: Multiple contiguous axial images were obtained of the head. Using automated exposure control and adj ustment of the mA and/or kV according to patient size, radiation dose was kept as low as reasonably a chievable to obtain optimal diagnostic quality images. DICOM format image data is available electro nically for review and comparison. FINDINGS: CEREBRUM: The ventricles are normal for age. No evidence of midline shift, mass lesion, hemorrhage or acute in farction. No extra-axial fluid collections are seen. POSTERIOR FOSSA: The cerebellum and brainstem are intact. The 4th ventricle is midline. The cerebellopontine angle i s unremarkable. EXTRACRANIAL: The visualized portion of the orbits is intact. SKULL: The calvaria is intact. No evidence of skull fracture. CONCLUSION: Negative for acute process. José Miguel Gonsales MD FACR on December 15, 2016 at 15:31 Board Certified Radiologist. This report was verified electronically.
[2016-12-15] MEDS ORDERED: ACETAMINOPHEN 325 MG TAB PO PRN (16:30)
[2016-12-15] MEDS ORDERED: SENNOSIDES 8.6 MG TAB PO PRN (16:30)
[2016-12-15] MEDS ORDERED: NALOXONE HCL 0.4 MG/ML AMP IV PRN (16:30)
[2016-12-15] MEDS ORDERED: MAGNESIUM HYDROXIDE SUSP 30 ML CUP PO PRN (16:30)
[2016-12-15] MEDS ORDERED: LACTULOSE SYRUP 20 GM/30 ML CUP PO PRN (16:30)
[2016-12-15] MEDS ORDERED: SODIUM CHLORIDE 0.9% FLUSH 10 ML FLUSH IV FLUSH PRN (16:30)
[2016-12-15] MEDS ORDERED: ONDANSETRON HCL 4 MG/2 ML VIAL IVP PRN (16:30)
[2016-12-15] MEDS ORDERED: BISACODYL 10 MG SUPP RECTAL PRN (16:30)
--- NOTE | 2016-12-15 16:55 | HHI.HP ---
HPI Service [facility] Primary Care Physician Klever Brito MD Admission Diagnosis DIZZINESS/MARI Diagnoses: Chief Complaint: DIZZINESS Travel History International Travel<30 Days: No Contact w/Intl Traveler <30 Da: No Traveled to Known Affected Are: No History of Present Illness Mr. Yanez is a 36-year-old white male with significant past medical history of hypertension, bipolar, depression. Recent admission November 25 for unintentional overdose with Tylenol. Patient presents to the emergency room with complaint of dizziness that started approximately 3 days ago. He attributes this to taking Latuda which he started approximately 4 days ago. States that after his last admission, he followed up with [facility] as he does not have a psychiatrist that he follows up regularly. He is currently on Effexor, Vistaril, Rexulti, Seroquel and now Latuda. Patient states that he has failed increased dizziness especially when he stands and sits up, yesterday he was helping his mom do yard work and had a near syncopal episode. He skipped his medications last night thinking that he will feel better this morning but when he woke up he still felt dizzy with elevation. He is still very diaphoretic that time, has been taking adequate amount of fluid. He is feeling very forgetful and his memory is very foggy. He denies any headache, no fever, no chills. For the last 2 days he's had liquid diarrhea, no blood in the stool. Today he had approximately 3 episodes. He denies any antibiotic use. Indicates that he still feeling depressed, very down however he denies any suicidal ideation, homicidal ideation. States that during his recent visit , he was offered admission to the psychiatric unit however he declined because his father had and his was coming up. Patient was evaluated in emergency room, laboratory workup was completed. BMP was significant for acute renal injury which is a new finding, BUN 34, creatinine 2.38. Mild hyponatremia, sodium 133. CBC unremarkable. CT of the head negative. Vital signs, heart rate 110, respiratory rate 24, blood pressure 126/ 73, sats 96% on room air. Patient is on lisinopril. His most recent blood pressure is 109/58. Patient denies any urinary symptoms, no burning. Has been urinating adequate amounts. Urinalysis positive for bacteria. Culture is pending. Patient is requesting consultation with psychiatry as he is concerned he's taking too many medications and believes he needs adjustment. He will be agreeable to inpatient psychiatric admission if recommended. Patient is admitted for further evaluation and treatment. Review of Systems Constitutional: COMPLAINS OF: Dizziness, DENIES: Diaphoretic episodes, Fatigue , Fever, Weight gain, Weight loss, Chills, Change in appetite, Night Sweats Endocrine: DENIES: Heat/cold intolerance, Polydipsia, Polyuria, Polyphagia Eyes: DENIES: Blurred vision, Diplopia, Eye inflammation, Eye pain, Vision loss , Photosensitivity, Double Vision Ears, nose, mouth, throat: DENIES: Tinnitus, Hearing loss, Vertigo, Nasal discharge, Oral lesions, Throat pain, Hoarseness, Ear Pain, Running Nose, Epistaxis, Sinus Pain, Toothache, Odynophagia Respiratory: DENIES: Apneas, Cough, Snoring, Wheezing, Hemoptysis, Sputum production, Shortness of breath Cardiovascular: DENIES: Chest pain, Palpitations, Syncope, Dyspnea on Exertion , PND, Lower Extremity Edema, Orthopnea, Claudication Gastrointestinal: COMPLAINS OF: Diarrhea, DENIES: Abdominal pain, Black stools , Bloody stools, Constipation, Nausea, Vomiting, Difficulty Swallowing, Anorexia Genitourinary: DENIES: Sexual dysfunction, Urinary frequency, Urinary incontinence, Urgency, Hematuria, Dysuria, Nocturia, Penile Discharge, Testicular Pain, Testicular Swelling Musculoskeletal: DENIES: Joint pain, Muscle aches, Stiffness, Joint Swelling, Back pain, Neck pain Integumentary: DENIES: Abnormal pigmentation, Nail changes, Pruritus, Rash Hematologic/lymphatic: DENIES: Bruising, Lymphadenopathy Immunologic/allergic: DENIES: Eczema, Urticaria Neurologic: DENIES: Abnormal gait, Headache, Localized weakness, Paresthesias, Seizures, Speech Problems, Tremor, Poor Balance Psychiatric: COMPLAINS OF: Depression, DENIES: Anxiety, Confusion, Mood changes , Hallucinations, Agitation, Suicidal Ideation, Homicidal Ideation, Delusions Past Family Social History Past Medical History Bipolar Depression HTN Hep C previous psych admits, last time for tylenol OD Past Surgical History left knee surgery Reported Medications Reported Meds & Active Scripts Active Seroquel (Quetiapine Fumarate) 50 Mg Tab 50 Mg PO BID Reported Vistaril (Hydroxyzine Pamoate) 50 Mg Cap 50 Mg PO TID Latuda (Lurasidone) 60 Mg Tab 60 Mg PO DAILY Rexulti (Brexpiprazole) 2 Mg Tab 2 Mg PO DAILY Lisinopril 20 Mg Tab 20 Mg PO BID Effexor (Venlafaxine HCl) 37.5 Mg Tab 150 Mg PO DAILY Amlodipine (Amlodipine Besylate) 5 Mg Tab 5 Mg PO DAILY Allergies: Coded Allergies: Sulfa (Sulfonamide Antibiotics) (Verified Allergy, Severe, PT STS SKIN PEELS OFF., 12/15/16) Per pt. *MDRO Multi-Drug Resistant Organism (Verified Allergy, Unknown, 12/15/16) MRSA Active Ordered Medications Inpatient Medications Acetaminophen (Tylenol) 650 mg Q4H PRN PO TEMP > 100.4; Start 12/15/16 at 16:30 ; Status UNV Bisacodyl (Dulcolax Supp) 10 mg DAILY PRN RECTAL SEVERE CONSITIPATION; Start at 16:30; Status UNV Lactulose (Lactulose Liq) 30 ml DAILY PRN PO SEVERE CONSITIPATION; Start at 16:30; Status UNV Magnesium Hydroxide (Milk Of Magnesia Liq) 30 ml Q12H PRN PO MILD - MODERATE CONSTIPATION; Start 12/15/16 at 16:30; Status UNV Meclizine HCl (Antivert) 25 mg ONCE ONCE PO Last administered on 12/15/16t 13: 45; Start 12/15/16 at 13:30; Stop 12/15/16 at 13:31; Status DC Naloxone HCl (Narcan Inj) 0.4 mg UNSCH PRN IV SEE LABEL COMMENTS; Start at 16:30; Status UNV Ondansetron HCl (Zofran Inj) 4 mg Q6H PRN IVP NAUSEA OR VOMITING; Start at 16:30; Status UNV Senna/Docusate Sodium (Mayra-Colace) 1 tab BID PO ; Start 12/15/16 at 21:00; Status UNV Sennosides (Senokot) 17.2 mg Q12H PRN PO MODERATE - SEVERE CONSTIPATION; Start 12/15/16 at 16:30; Status UNV Sodium Chloride (NS Flush) 2 ml BID IV FLUSH ; Start 12/15/16 at 21:00; Status UNV Family History father recently from GI bleed Mother alive and well, healthy Sister, alive and well, hx of bipolar disorder Social History Pt. lives alone, unemployed. Smokes occasionally, no ETOH. Illegal drug use in the past, last used October 2015. Physical Exam Vital Signs Vital Signs Date Time Temp Pulse Resp B/P (MAP) Pulse Ox O2 Delivery O2 Flow Rate FiO2 12/15/16 15:58 97.9 78 16 109/58 (75) 98 Room Air 12/15/16 15:08 97.8 78 17 109/56 (73) 97 Room Air 12/15/16 13:48 98 17 109/55 (73) 96 17 108/59 (75) 101 17 111/58 (75) 12/15/16 13:41 101 17 114/64 (81) 97 Room Air 12/15/16 13:19 106 17 97 Room Air 12/15/16 13:00 97.7 110 24 126/73 (90) 96 Room Air Physical Exam GENERAL: This is a well-nourished, well-developed patient, in no apparent distress. SKIN: No rashes, ecchymoses or lesions. Cool and dry. HEAD: Atraumatic. Normocephalic. No temporal or scalp tenderness. EYES: Pupils equal round and reactive. Extraocular motions intact. No scleral icterus. No injection or drainage. ENT: Nose without bleeding, purulent drainage or septal hematoma. Throat without erythema, tonsillar hypertrophy or exudate. Uvula midline. Airway patent. NECK: Trachea midline. No JVD or lymphadenopathy. Supple, nontender, no meningeal signs. CARDIOVASCULAR: Regular rate and rhythm without murmurs, gallops, or rubs. RESPIRATORY: Clear to auscultation. Breath sounds equal bilaterally. No wheezes , rales, or rhonchi. GASTROINTESTINAL: Abdomen soft, non-tender, nondistended. No hepato-splenomegaly , or palpable masses. No guarding. MUSCULOSKELETAL: Extremities without clubbing, cyanosis, or edema. No joint tenderness, effusion, or edema noted. No calf tenderness. Negative Homans sign bilaterally. NEUROLOGICAL: Pt. appears somewhat sleepy but awakes to answer questions, oriented x 3. No focal deficits. Laboratory Laboratory Tests Test 12/15/16 13:35 White Blood Count 8.5 Red Blood Count 4.05 Hemoglobin 12.7 Hematocrit 37.4 Mean Corpuscular Volume 92.4 Mean Corpuscular Hemoglobin 31.4 Mean Corpuscular Hemoglobin Concent 34.0 Red Cell Distribution Width 13.9 Platelet Count 278 Mean Platelet Volume 6.7 Neutrophils (%) (Auto) 64.7 Lymphocytes (%) (Auto) 24.5 Monocytes (%) (Auto) 9.2 Eosinophils (%) (Auto) 1.0 Basophils (%) (Auto) 0.6 Neutrophils # (Auto) 5.5 Lymphocytes # (Auto) 2.1 Monocytes # (Auto) 0.8 Eosinophils # (Auto) 0.1 Basophils # (Auto) 0.0 CBC Comment DIFF FINAL Differential Comment Urine Color YELLOW Urine Turbidity HAZY Urine pH 6.5 Urine Specific [place] 1.012 Urine Protein NEG Urine Glucose (UA) NEG Urine Ketones NEG Urine Occult Blood NEG Urine Nitrite NEG Urine Bilirubin NEG Urine Urobilinogen LESS THAN 2.0 Urine Leukocyte Esterase NEG Urine RBC LESS THAN 1 Urine WBC LESS THAN 1 Urine Bacteria MANY Urine Mucus MANY Microscopic Urinalysis Comment CULTURE INDICATED Blood Urea Nitrogen 34 Creatinine 2.38 Random Glucose 115 Total Protein 8.0 Albumin 3.7 Calcium Level 8.5 Magnesium Level 2.1 Alkaline Phosphatase 79 Aspartate Amino Transf (AST/SGOT) 34 Alanine Aminotransferase (ALT/SGPT) 73 Total Bilirubin 0.5 Sodium Level 133 Potassium Level 4.6 Chloride Level 101 Carbon Dioxide Level 25.3 Anion Gap 7 Estimat Glomerular Filtration Rate 31 Total Creatine Kinase 133 Creatine Kinase MB 2.5 Troponin I LESS THAN 0.02 Urine Opiates Screen NEG Urine Barbiturates Screen NEG Urine Amphetamines Screen NEG Urine Benzodiazepines Screen NEG Urine Cocaine Screen NEG Urine Cannabinoids Screen NEG Date/Time Source Procedure Growth Status 12/15/16 13:35 Urine Random Urine Urine Culture Pending Received Result Diagram: 12/15/16 1335 12/15/16 1335 Imaging Last Impressions Head CT 12/15/16 1322 Signed Impressions: Service Date/Time: Thursday, December 15, 2016 15:21 - CONCLUSION: Negative for acute process. José Miguel Gonsales MD FACR Caprini VTE Risk Assessment Caprini VTE Risk Assessment: No/Low Risk (score <= 1) Caprini Risk Assessment Model Point Value = 1 Point Value = 2 Point Value = 3 Point Value = 5 Age 41-60 Minor surgery BMI > 25 kg/m2 Swollen legs Varicose veins or History of unexplained or recurrent spontaneous Oral contraceptives or hormone replacement Sepsis (< 1 month) Serious lung disease, including pneumonia (< 1 month) Abnormal pulmonary function Acute myocardial infarction Congestive heart failure (< 1 month) History of inflammatory bowel disease Medical patient at bed rest Age 61-74 Arthroscopic surgery Major open surgery (> 45 min) Laparoscopic surgery (> 45 min) Malignancy Confined to bed (> 72 hours) Immobilizing plaster cast Central venous access Age >= 75 History of VTE Family history of VTE Factor V Leiden Prothrombin [id number] Lupus anticoagulant Anticardiolipin antibodies Elevated serum homocysteine Heparin-induced thrombocytopenia Other congenital or acquired thrombophilia Stroke (< 1 month) Elective arthroplasty Hip, pelvis, or leg fracture Acute spinal cord injury (< 1 month) Prophylaxis Regimen Total Risk Factor Score Risk Level Prophylaxis Regimen 0-1 Low Early ambulation 2 Moderate Order ONE of the following: *Sequential Compression Device (SCD) *Heparin 5000 units SQ BID 3-4 Higher Order ONE of the following medications: *Heparin 5000 units SQ TID *Enoxaparin/Lovenox 40 mg SQ daily (WT < 150 kg, CrCl > 30 mL/min) *Enoxaparin/Lovenox 30 mg SQ daily (WT < 150 kg, CrCl > 10-29 mL/min) *Enoxaparin/Lovenox 30 mg SQ BID (WT < 150 kg, CrCl > 30 mL/min) AND/OR *Sequential Compression Device (SCD) 5 or more Highest Order ONE of the following medications: *Heparin 5000 units SQ TID (Preferred with Epidurals) *Enoxaparin/Lovenox 40 mg SQ daily (WT < 150 kg, CrCl > 30 mL/min) *Enoxaparin/Lovenox 30 mg SQ daily (WT < 150 kg, CrCl > 10-29 mL/min) *Enoxaparin/Lovenox 30 mg SQ BID (WT < 150 kg, CrCl > 30 mL/min) AND *Sequential Compression Device (SCD) Assessment and Plan Problem List: (1) Dizziness ICD Codes: R42 - Dizziness and giddiness Status: Acute (2) Acute kidney injury ICD Codes: N17.9 - Acute kidney failure, unspecified Status: Acute (3) Depression ICD Codes: F32.9 - Major depressive disorder, single episode, unspecified Status: Acute (4) Dehydration ICD Codes: E86.0 - Dehydration Status: Acute (5) Diarrhea ICD Codes: R19.7 - Diarrhea, unspecified Status: Acute (6) UTI (urinary tract infection) ICD Codes: N39.0 - Urinary tract infection, site not specified Status: Acute Assessment and Plan Admit to Dr. Cintron 36-year-old white male presented to the emergency room with complaint of dizziness and blurred vision. Found dehydrated, acute kidney injury. Has been having diarrhea. Patient admits to continued depression, denies suicidal ideation. Was recently started on Latuda. Dizziness secondary to dehydration MARI Diarrhea -Continue with IV fluids, normal saline at 100 hour -check renal US r/o obstruction. -We will check stools for C. difficile -Hold lisinopril -Follow renal function -Continuous cardiac telemetry -Orthostatics every shift UTI, cultures pending -Start Rocephin 1 gram IV daily -follow urine culture Depression, recurrent Bipolar disorder -Consult psychiatry for evaluation -Hold psychiatric medications at this time, we'll wait for further recommendations from psychiatry. Hx HTN, BP actually low 100s -hold BP meds at this time. Home medications reviewed, initiated as indicated. SCDs for DVT prophylaxis Plan of care discussed with attending, RN and patient. Further management of the patient will be dependent on the hospital course. This patient was seen by myself and Dr. Cintron, this H/P is written on his behalf. Problem Qualifiers (1) Depression: Qualified Codes: F32.9 - Major depressive disorder, single episode, unspecified (2) Diarrhea: Qualified Codes: R19.7 - Diarrhea, unspecified (3) UTI (urinary tract infection): Qualified Codes: N39.0 - Urinary tract infection, site not specified Seda Forte [facility] Dec 15, 2016 16:55
[2016-12-15] MEDS: SODIUM CHLOR 0.9% 1000 ML INJ 1,000 ML IV SCH (17:12)
--- NOTE | 2016-12-15 17:20 | RADRPT ---
EXAM DATE/TIME: 12/15/2016 16:41 [facility] COMPARISON: No previous studies available for comparison. INDICATIONS : Increased BUN/Creatinine. MEDICAL HISTORY : Hypertension. Hepatitis C. Heroin use. SURGICAL HISTORY : Tonsillectomy. Bilateral knee surgery. ENCOUNTER: Initial ACUITY: 1 day PAIN SCORE: 0/10 LOCATION: Bilateral flank MEASUREMENTS: RIGHT KIDNEY: 10.8 x 4.9 x 6.0 cm LEFT KIDNEY: 11.8 x 6.7 x 6.2 cm FINDINGS: RIGHT KIDNEY: Renal cortex is normal in thickness and echotexture. No hydronephrosis, stone, or mass. LEFT KIDNEY: Renal cortex is normal in thickness and echotexture. No hydronephrosis, stone, or mass. BLADDER: Within normal limits given the degree of distension. CONCLUSION: Negative for mass or hydronephrosis. Mildly prominent spleen.. José Miguel Gonsales MD FACR on December 15, 2016 at 17:18 Board Certified Radiologist. This report was verified electronically.
[2016-12-15] MEDS: cefTRIAXone INJ 1,000 MG in SODIUM CHLORIDE 0.9% INJ 100 ML IV SCH (18:08)
[2016-12-15] MEDS ORDERED: DOCUSATE SODIUM 50 MG/SENNA 8.6 MG TAB PO SCH (21:00)
[2016-12-15] MEDS: SODIUM CHLORIDE 0.9% FLUSH 10 ML FLUSH IV FLUSH SCH (21:00)
[2016-12-16] VITALS (8 sets, daily range): BP systolic 118–135; BP diastolic 56–87; PULSE 65–79; RESP 16–18; TEMP 97.6–98.6; O2SAT 96–99
[2016-12-16] MEDS: SODIUM CHLOR 0.9% 1000 ML INJ 1,000 ML IV SCH ×2 (04:20→13:09)
--- NOTE | 2016-12-16 07:14 | HHI.PR ---
Subjective Subjective Remarks Resting in the bed Calm, alert Still has some dizzy sensations, mild in nature Afebrile (Mary Ellen Michelle) Review of Systems Constitutional Constitutional: Weakness Constitutional Remarks 10 point ROS done positives noted (Mary Ellen Michelle) Neurologic Neurologic: Dizziness (Mary Ellen Michelle) Psychiatric Psychiatric: Normal Mood (normal affect) (Mary Ellen Michelle) Vitals/Results Vital Signs Vital Signs Date Time Temp Pulse Resp B/P (MAP) Pulse Ox O2 Delivery O2 Flow Rate FiO2 12/16/16 04:35 98.6 65 18 120/56 (77) 96 12/16/16 00:13 98.3 79 17 118/71 (87) 96 118/70 (86) 118/64 (82) 12/15/16 22:55 73 12/15/16 20:07 97.8 75 18 99/54 (69) 95 12/15/16 18:30 97.8 78 16 110/72 (85) 98 12/15/16 17:56 97.8 79 16 110/72 (85) 98 Room Air 12/15/16 15:58 97.9 78 16 109/58 (75) 98 Room Air 12/15/16 15:08 97.8 78 17 109/56 (73) 97 Room Air 12/15/16 13:48 98 17 109/55 (73) 96 17 108/59 (75) 101 17 111/58 (75) 12/15/16 13:41 101 17 114/64 (81) 97 Room Air 12/15/16 13:19 106 17 97 Room Air 12/15/16 13:00 97.7 110 24 126/73 (90) 96 Room Air (Mary Ellen Michelle) CBC/BMP: 12/15/16 1335 12/15/16 1335 Lab Results Laboratory Tests Test 12/15/16 13:35 White Blood Count 8.5 TH/MM3 Red Blood Count 4.05 MIL/MM3 Hemoglobin 12.7 GM/DL Hematocrit 37.4 % Mean Corpuscular Volume 92.4 FL Mean Corpuscular Hemoglobin 31.4 PG Mean Corpuscular Hemoglobin Concent 34.0 % Red Cell Distribution Width 13.9 % Platelet Count 278 TH/MM3 Mean Platelet Volume 6.7 FL Neutrophils (%) (Auto) 64.7 % Lymphocytes (%) (Auto) 24.5 % Monocytes (%) (Auto) 9.2 % Eosinophils (%) (Auto) 1.0 % Basophils (%) (Auto) 0.6 % Neutrophils # (Auto) 5.5 TH/MM3 Lymphocytes # (Auto) 2.1 TH/MM3 Monocytes # (Auto) 0.8 TH/MM3 Eosinophils # (Auto) 0.1 TH/MM3 Basophils # (Auto) 0.0 TH/MM3 CBC Comment DIFF FINAL Differential Comment Urine Color YELLOW Urine Turbidity HAZY Urine pH 6.5 Urine Specific [place] 1.012 Urine Protein NEG mg/dL Urine Glucose (UA) NEG mg/dL Urine Ketones NEG mg/dL Urine Occult Blood NEG Urine Nitrite NEG Urine Bilirubin NEG Urine Urobilinogen LESS THAN 2.0 MG/DL Urine Leukocyte Esterase NEG Urine RBC LESS THAN 1 /hpf Urine WBC LESS THAN 1 /hpf Urine Bacteria MANY /hpf Urine Mucus MANY /lpf Microscopic Urinalysis Comment CULTURE INDICATED Blood Urea Nitrogen 34 MG/DL Creatinine 2.38 MG/DL Random Glucose 115 MG/DL Total Protein 8.0 GM/DL Albumin 3.7 GM/DL Calcium Level 8.5 MG/DL Magnesium Level 2.1 MG/DL Alkaline Phosphatase 79 U/L Aspartate Amino Transf (AST/SGOT) 34 U/L Alanine Aminotransferase (ALT/SGPT) 73 U/L Total Bilirubin 0.5 MG/DL Sodium Level 133 MEQ/L Potassium Level 4.6 MEQ/L Chloride Level 101 MEQ/L Carbon Dioxide Level 25.3 MEQ/L Anion Gap 7 MEQ/L Estimat Glomerular Filtration Rate 31 ML/MIN Total Creatine Kinase 133 U/L Creatine Kinase MB 2.5 NG/ML Troponin I LESS THAN 0.02 NG/ML Urine Opiates Screen NEG Urine Barbiturates Screen NEG Urine Amphetamines Screen NEG Urine Benzodiazepines Screen NEG Urine Cocaine Screen NEG Urine Cannabinoids Screen NEG Microbiology Microbiology 12/15/16 Urine Culture, Received Pending Imaging Remarks Last Impressions Head CT 12/15/16 1322 Signed Impressions: Service Date/Time: Thursday, December 15, 2016 15:21 - CONCLUSION: Negative for acute process. José Miguel Gonsales MD FACR Renal Ultrasound 12/15/16 0000 Signed Impressions: Service Date/Time: Thursday, December 15, 2016 16:41 - CONCLUSION: Negative for mass or hydronephrosis. Mildly prominent spleen.. José Miguel Gonsales MD FACR Current Medications Last Impressions Head CT 12/15/16 1322 Signed Impressions: Service Date/Time: Thursday, December 15, 2016 15:21 - CONCLUSION: Negative for acute process. José Miguel Gonsales MD FACR Renal Ultrasound 12/15/16 0000 Signed Impressions: Service Date/Time: Thursday, December 15, 2016 16:41 - CONCLUSION: Negative for mass or hydronephrosis. Mildly prominent spleen.. José Miguel Gonsales MD FACR (Viviana,Mary Ellen M. STRUCTURAL METAL FABRICATOR APPRENTICE) Physical Exam General General Appearance: Well Developed, Well Nourished, No Acute Distress ([place],Mary Ellen M. STRUCTURAL METAL FABRICATOR APPRENTICE) Eyes Eye Exam: Pupils Reactive (Viviana,Mary Ellen M. STRUCTURAL METAL FABRICATOR APPRENTICE) Ears & Nose Ears & Nose Exam: Nasal Mucosa [place] (Viviana,Mary Ellen M. STRUCTURAL METAL FABRICATOR APPRENTICE) Throat Throat Exam: Oral Mucosa [place] & Moist (Viviana,Mary Ellen M. STRUCTURAL METAL FABRICATOR APPRENTICE) Neck Neck Exam: Neck Supple ([place],Mary Ellen M. STRUCTURAL METAL FABRICATOR APPRENTICE) Pulmonary Resp Exam: Clear Bilaterally (Viviana,Mary Ellen M. STRUCTURAL METAL FABRICATOR APPRENTICE) Cardiology CV Exam: Regular (Viviana,Mary Ellen M. STRUCTURAL METAL FABRICATOR APPRENTICE) Gastrointestinal/Abdomen GI Exam: Soft, Non-Tender, Bowel Sounds Present (Viviana,Mary Ellen M. STRUCTURAL METAL FABRICATOR APPRENTICE) Genitourinary Exam: Clear Urine (yellow) (Viviana,Mary Ellen M. STRUCTURAL METAL FABRICATOR APPRENTICE) Musculoskeletal MS Exam: Joints Intact, Good Strength (Viviana,Mary Ellen M. STRUCTURAL METAL FABRICATOR APPRENTICE) Integumentary Skin Exam: Clear, Warm, Dry, Intact (Viviana,Mary Ellen M. STRUCTURAL METAL FABRICATOR APPRENTICE) Extremeties Extremities Exam: No Edema ([place],Mary Ellen M. STRUCTURAL METAL FABRICATOR APPRENTICE) Neurologic Neuro Exam: Alert, Awake, Oriented, Speech Clear, Moving All Extremities ([place],Mary Ellen M. STRUCTURAL METAL FABRICATOR APPRENTICE) Psychiatric Psych Exam: Appropriate Responses ([place],Mary Ellen M. STRUCTURAL METAL FABRICATOR APPRENTICE) Assessment/Plan Assessment/Plan Vital signs reviewed, afebrile, other vital signs within normal trends Labs reviewed, sodium 133, still shows some acute kidney injury, hemoglobin 12.7 , Dizziness secondary to dehydration with acute kidney injury Encouraged hydration, IV fluids at 100 cc an hour Renal ultrasound normal, diarrhea resolved Currently holding medications Telemetry regular rhythm with out dysrhythmias UTI -Start Rocephin 1 gram IV daily, urine culture pending Denies any dysuria Depression, recurrent with Bipolar disorder Psychiatry consult pending for his medical management, patient states started having dizzy symptoms when he started new medication Hx HTN, Normal trends for now , holding meds for now Monitor bowel regimen SCDs for DVT prophylaxis Discussed with patient Discussed with nurse Discussed with Dr. Cintron, seen on his behalf Discharge planning, will review needs after psych evaluation today, (Mary Ellen Michelle) Assessment/Plan Patient seen and examined as above Labs and radiological data reviewed Patient is feeling lot better. His dizziness is not better Discussed with STRUCTURAL METAL FABRICATOR APPRENTICE Discussed with patient Awaiting psychiatrist's input (Luis Miguel Cintron MD) Mary Ellen Michelle Dec 16, 2016 07:14 Luis Miguel Cintron MD Dec 16, 2016 12:38
[2016-12-16] MEDS: SODIUM CHLORIDE 0.9% FLUSH 10 ML FLUSH IV FLUSH SCH (08:04)
--- NOTE | 2016-12-16 12:25 | PD.PSY.CON ---
Provisional Diagnosis Admission Date Dec 15, 2016 at 16:15 [place]. Adjustment disorder with depressed mood, history of bipolar disorder History of Present Illness Service Psychiatry Consult Requested By Reason for Consult Medication management Primary Care Physician Klever Brito MD HPI The patient is a 36-year-old man, domiciled alone in [place], , unemployed, with psychiatric history bipolar disorder, opiate use disorder, in sustained full remission, 2 previous psychiatric hospitalizations, he was hospitalized here at [facility] in July, he was seeing in the ER due to a Tylenol overdose about 2 weeks ago, he was under my care, well-konw by service, history of manipulative and drug-seeking behavior, 2 previous suicidal attempts , he was discharged from [facility] about week ago, outpatient care in [facility], he is on Effexor 150, Latuda 60, Seroquel 50 mg, he has medical history hypertension, who came to the emergency room complaining of dizziness, he is place in the observation area of the ER due to hyponatremia and acute kidney injury. Consulted to psychiatry for medication management. On psychiatric evaluation today patient is found in his bed, he is calm, cooperative, talkative. Patient says that he came this time no for psychiatric reasons. He has been feeling weak and dizzy. He feels that his psychotropic prescribed in [facility] could be responsible for these symptoms. However, he denies depressive symptoms, he denies anxiety, he denies daniele and he denies psychosis. She denies the use of illicit drugs or alcohol. He denies suicidal and homicidal ideation, he denies visual and auditory hallucinations. Patient is oriented 3, no attention deficit, no fluctuation of consciousness. Patient says that he is compliant with his medications, but he needs to have a discussion regarding this psychotropic regimen with his psychiatrist. He denies the use of illicit drugs and alcohol. Review of Systems Constitutional: DENIES: Diaphoretic episodes, Fatigue, Fever, Weight gain, Weight loss, Chills, Dizziness, Change in appetite, Night Sweats Endocrine: DENIES: Heat/cold intolerance, Polydipsia, Polyuria, Polyphagia Eyes: DENIES: Blurred vision, Diplopia, Eye inflammation, Eye pain, Vision loss , Photosensitivity, Double Vision Ears, nose, mouth, throat: DENIES: Tinnitus, Hearing loss, Vertigo, Nasal discharge, Oral lesions, Throat pain, Hoarseness, Ear Pain, Running Nose, Epistaxis, Sinus Pain, Toothache, Odynophagia Respiratory: DENIES: Apneas, Cough, Snoring, Wheezing, Hemoptysis, Sputum production, Shortness of breath Cardiovascular: DENIES: Chest pain, Palpitations, Syncope, Dyspnea on Exertion , PND, Lower Extremity Edema, Orthopnea, Claudication Gastrointestinal: DENIES: Abdominal pain, Black stools, Bloody stools, Constipation, Diarrhea, Nausea, Vomiting, Difficulty Swallowing, Anorexia Musculoskeletal: DENIES: Joint pain, Muscle aches, Stiffness, Joint Swelling, Back pain, Neck pain Integumentary: DENIES: Abnormal pigmentation, Nail changes, Pruritus, Rash Hematologic/lymphatic: DENIES: Bruising, Lymphadenopathy Immunologic/allergic: DENIES: Eczema, Urticaria Neurologic: DENIES: Abnormal gait, Headache, Localized weakness, Paresthesias, Seizures, Speech Problems, Tremor, Poor Balance Psychiatric: DENIES: Anxiety, Confusion, Mood changes, Depression, Hallucinations, Agitation, Suicidal Ideation, Homicidal Ideation, Delusions Past Family Social History Coded Allergies: Sulfa (Sulfonamide Antibiotics) (Verified Allergy, Severe, PT STS SKIN PEELS OFF., 12/15/16) Per pt. *MDRO Multi-Drug Resistant Organism (Verified Allergy, Unknown, 12/15/16) MRSA Active Scripts Quetiapine (Seroquel) 50 Mg Tab, 50 MG PO BID for schizophrenia, #60 TAB 0 Refills Prov:Dutch Alba MD 11/28/16 Reported Medications Hydroxyzine Pamoate (Vistaril) 50 Mg Cap, 50 MG PO TID, CAP 0 Refills 12/15/16 Lurasidone (Latuda) 60 Mg Tab, 60 MG PO DAILY, #30 TAB 0 Refills 12/15/16 Brexpiprazole (Rexulti) 2 Mg Tab, 2 MG PO DAILY, TAB 11/12/16 Lisinopril (Lisinopril) 20 Mg Tab, 20 MG PO BID, #30 TAB 0 Refills 07/25/16 Venlafaxine (Effexor) 37.5 Mg Tab, 150 MG PO DAILY, #60 TAB 0 Refills 07/25/16 Amlodipine (Amlodipine) 5 Mg Tab, 5 MG PO DAILY for Blood Pressure Management, # 30 TAB 0 Refills 07/25/16 Discontinued Reported Medications Hydroxyzine Pamoate (Hydroxyzine Pamoate) 50 Mg Cap, 50 MG PO HS, CAP 0 Refills 11/12/16 Current Medications Medications (Trade) Dose Ordered Sig/Lakeisha Route Start Time Stop Time Status Last Admin Sodium Chloride 1,000 ml @ 100 mls/hr Q10H IV 12/15/16 17:00 12/16/16 04:20 (NS Flush) 2 ml UNSCH PRN IV FLUSH 12/15/16 16:30 (NS Flush) 2 ml BID IV FLUSH 12/15/16 21:00 12/16/16 08:04 (Tylenol) 650 mg Q4H PRN PO 12/15/16 16:30 (Zofran Inj) 4 mg Q6H PRN IVP 12/15/16 16:30 (Narcan Inj) 0.4 mg UNSCH PRN IV 12/15/16 16:30 (Milk Of Magnesia Liq) 30 ml Q12H PRN PO 12/15/16 16:30 (Senokot) 17.2 mg Q12H PRN PO 12/15/16 16:30 (Dulcolax Supp) 10 mg DAILY PRN RECTAL 12/15/16 16:30 (Lactulose Liq) 30 ml DAILY PRN PO 12/15/16 16:30 Ceftriaxone Sodium 1000 mg/ Sodium Chloride 100 ml @ 200 mls/hr Q24H IV 12/15/16 18:00 12/15/16 18:08 Family History Denies family psychiatric history Social History Patient was born and raised in [facility], he lives alone in his apartment in [facility], unemployed, single, supported by parents, highest level of education is a master degree in economics. Patient's Strengths (min. 2) Outpatient psychiatric care Physical Exam Vital Signs Vital Signs Date Time Temp Pulse Resp B/P (MAP) Pulse Ox O2 Delivery O2 Flow Rate FiO2 12/16/16 11:50 97.6 76 16 123/73 (90) 96 12/15/16 17:56 Room Air I/O 12/16/16 12/16/16 12/17/16 08:00 16:00 00:00 Output Total 1600 ml 675 ml Balance -1600 ml -675 ml Lab Results Test 12/15/16 13:35 White Blood Count 8.5 TH/MM3 Red Blood Count 4.05 MIL/MM3 Hemoglobin 12.7 GM/DL Hematocrit 37.4 % Mean Corpuscular Volume 92.4 FL Mean Corpuscular Hemoglobin 31.4 PG Mean Corpuscular Hemoglobin Concent 34.0 % Red Cell Distribution Width 13.9 % Platelet Count 278 TH/MM3 Mean Platelet Volume 6.7 FL Neutrophils (%) (Auto) 64.7 % Lymphocytes (%) (Auto) 24.5 % Monocytes (%) (Auto) 9.2 % Eosinophils (%) (Auto) 1.0 % Basophils (%) (Auto) 0.6 % Neutrophils # (Auto) 5.5 TH/MM3 Lymphocytes # (Auto) 2.1 TH/MM3 Monocytes # (Auto) 0.8 TH/MM3 Eosinophils # (Auto) 0.1 TH/MM3 Basophils # (Auto) 0.0 TH/MM3 CBC Comment DIFF FINAL Differential Comment Urine Color YELLOW Urine Turbidity HAZY Urine pH 6.5 Urine Specific [place] 1.012 Urine Protein NEG mg/dL Urine Glucose (UA) NEG mg/dL Urine Ketones NEG mg/dL Urine Occult Blood NEG Urine Nitrite NEG Urine Bilirubin NEG Urine Urobilinogen LESS THAN 2.0 MG/DL Urine Leukocyte Esterase NEG Urine RBC LESS THAN 1 /hpf Urine WBC LESS THAN 1 /hpf Urine Bacteria MANY /hpf Urine Mucus MANY /lpf Microscopic Urinalysis Comment CULTURE INDICATED Blood Urea Nitrogen 34 MG/DL Creatinine 2.38 MG/DL Random Glucose 115 MG/DL Total Protein 8.0 GM/DL Albumin 3.7 GM/DL Calcium Level 8.5 MG/DL Magnesium Level 2.1 MG/DL Alkaline Phosphatase 79 U/L Aspartate Amino Transf (AST/SGOT) 34 U/L Alanine Aminotransferase (ALT/SGPT) 73 U/L Total Bilirubin 0.5 MG/DL Sodium Level 133 MEQ/L Potassium Level 4.6 MEQ/L Chloride Level 101 MEQ/L Carbon Dioxide Level 25.3 MEQ/L Anion Gap 7 MEQ/L Estimat Glomerular Filtration Rate 31 ML/MIN Total Creatine Kinase 133 U/L Creatine Kinase MB 2.5 NG/ML Troponin I LESS THAN 0.02 NG/ML Urine Opiates Screen NEG Urine Barbiturates Screen NEG Urine Amphetamines Screen NEG Urine Benzodiazepines Screen NEG Urine Cocaine Screen NEG Urine Cannabinoids Screen NEG Date/Time Source Procedure Growth Status 12/15/16 13:35 Urine Random Urine Urine Culture Pending Received Mental Status Examination Appearance man, good hygiene, hospital [facility], calm and cooperative Speech: Unremarkable Orientation: x3 Memory: Unremarkable Thought Process: Logical Thought Content: Unremarkable Language Fluent and spontaneous Fund of Knowledge adequate for level of education Suicidal Ideation: No Previous Suicide Attempts: Yes Homicidal Ideation: No Previous Homicide Attempts: No Insight: Good Judgment: WNL Affect: Good Mood: Appropriate Motor Activity: Normal gait Assessment & Plan Problem List: (1) Chronic bipolar disorder ICD Codes: F31.9 - Bipolar disorder, unspecified Assessment & Plan: At the moment of this evaluation the patient does not present any evidence of acute, concerning or significant symptomatology of depression, anxiety, daniele or psychosis. The patient denies suicidal and homicidal ideation, he denies visual and auditory hallucinations. Patient reports that he has been compliant with his medications, but he has been having dizziness and weakness that he attributes to psychotropics. He does not meet criteria for psychiatric admission. My recommendation would be to hold psychotropics and discuss changes with outpatient psychiatrist. Support and psychoeducation provided. Consult appreciated. Assessment & Plan Estimated LOS: Dylan Holloway MD Dec 16, 2016 12:25
--- NOTE | 2016-12-16 13:57 | EKG ---
Date Performed: 12/15/2016 Time Performed: 14:00:24 PTAGE: 36 years EKG: Sinus rhythm POSSIBLE LEFT ATRIAL ENLARGEMENT POSSIBLE LEFT VENTRICULAR HYPERTROPHY POSSIBLE ANTEROSEPTAL INFARCT , AGE INDETERMINATE WITH LOSS OF R WAVE V3, V4 COMPARED TO PRIOR TRACING ABNORMAL ECG PREVIOUS TRACING : 11/25/2016 14.57 DOCTOR: Toan Dias Interpretating Date/Time 12/16/2016 13:56:36
[2016-12-16 14:02] LABS: AUTOMATED NEUTROPHIL # 2.7 TH/MM3 (1.8-7.7); BASOPHIL % 0.5 % (0.0-2.0); EOSINOPHIL # 0.2 TH/MM3 (0-0.4); HEMATOCRIT 36.4 % (39.0-51.0); HEMO FLAGS DIFF FINAL; LYMPH % 39.3 % (9.0-44.0); LYMPHOCYTE # 2.4 TH/MM3 (1.0-4.8); MEAN CELL VOLUME 93.1 FL (80.0-100.0); MEAN CORPUSCULAR HEMOGLOBIN 30.5 PG (27.0-34.0); MEAN CORPUSCULAR HGB CONC 32.8 % (32.0-36.0); MONO % 12.6 % (0.0-8.0); NEUT % 44.6 % (16.0-70.0); PLATELET COUNT 261 TH/MM3 (150-450); RED BLOOD COUNT 3.91 MIL/MM3 (4.50-5.90); RED CELL DISTRIBUTION WIDTH 13.9 % (11.6-17.2); WHITE BLOOD COUNT 6.1 TH/MM3 (4.0-11.0)
[2016-12-16 14:13] LABS: BICARBONATE 23.3 MEQ/L (21.0-32.0); POTASSIUM 4.6 MEQ/L (3.5-5.1)
[2016-12-16] MEDS ORDERED: LEVA500T20 PO (17:13)
[2016-12-16] MEDS: cefTRIAXone INJ 1,000 MG in SODIUM CHLORIDE 0.9% INJ 100 ML IV SCH (17:32)
--- NOTE | 2016-12-16 18:27 | HHI.DS ---
Discharge Summary Admission Date Dec 15, 2016 at 16:15 Discharge Date: Dec 16, 2016 Admitting Diagnosis DIZZINESS/MARI (1) Dizziness ICD Codes: R42 - Dizziness and giddiness Status: Acute (2) Acute kidney injury ICD Codes: N17.9 - Acute kidney failure, unspecified Status: Acute (3) Depression ICD Codes: F32.9 - Major depressive disorder, single episode, unspecified Status: Acute (4) Dehydration ICD Codes: E86.0 - Dehydration Status: Acute (5) Diarrhea ICD Codes: R19.7 - Diarrhea, unspecified Status: Acute (6) UTI (urinary tract infection) ICD Codes: N39.0 - Urinary tract infection, site not specified Status: Acute Procedures CT scan Brief History Mr. Yanez was a 36-year-old white male with significant past medical history of hypertension, bipolar, depression. Recent admission November 25 for unintentional overdose with Tylenol. Patient presented to the emergency room with complaint of dizziness that started approximately 3 days ago. He attributed this to taking Latuda which he started approximately 4 days ago. Stated that after his last admission, he followed up with Jose F Paredes as he did not have a psychiatrist. He was currently on Effexor, Vistaril, Rexulti, Seroquel and now Latuda. Patient stated that he has failed increased dizziness especially when he stands and sits up, yesterday he was helping his mom do yard work and had a near syncopal episode. He skipped his medications last night thinking that he will feel better this morning but when he woke up he still felt dizzy with elevation. He was still very diaphoretic that time, has been taking adequate amount of fluid. He was feeling very forgetful and his memory was very foggy. He denied any headache, no fever, no chills. For the last 2 days he's had liquid diarrhea, no blood in the stool. Today he had approximately 3 episodes. He denies any antibiotic use. Indicates that he still feeling depressed, very down however he denies any suicidal ideation, homicidal ideation. Stated that during his recent visit, he was offered admission to the psychiatric unit however he declined because his father had and his was coming up. CBC/BMP: 12/16/16 1339 12/16/16 1339 Significant Findings Laboratory Tests Test 12/15/16 13:35 12/16/16 13:39 Red Blood Count 4.05 MIL/MM3 (4.50-5.90) 3.91 MIL/MM3 (4.50-5.90) Hemoglobin 12.7 GM/DL (13.0-17.0) 11.9 GM/DL (13.0-17.0) Hematocrit 37.4 % (39.0-51.0) 36.4 % (39.0-51.0) Mean Platelet Volume 6.7 FL (7.0-11.0) 6.9 FL (7.0-11.0) Monocytes (%) (Auto) 9.2 % (0.0-8.0) 12.6 % (0.0-8.0) Urine Turbidity HAZY (CLEAR) Urine Bacteria MANY /hpf (NONE) Urine Mucus MANY /lpf (OCC) Blood Urea Nitrogen 34 MG/DL (7-18) 29 MG/DL (7-18) Creatinine 2.38 MG/DL (0.60-1.30) 1.62 MG/DL (0.60-1.30) Random Glucose 115 MG/DL (74-106) 111 MG/DL (74-106) Sodium Level 133 MEQ/L (136-145) Estimat Glomerular Filtration Rate 31 ML/MIN (>89) 48 ML/MIN (>89) Troponin I LESS THAN 0.02 NG/ML Chloride Level 108 MEQ/L (98-107) Imaging Last Impressions Head CT 12/15/16 1322 Signed Impressions: Service Date/Time: Thursday, December 15, 2016 15:21 - CONCLUSION: Negative for acute process. José Miguel Gonsales MD FACR Renal Ultrasound 12/15/16 0000 Signed Impressions: Service Date/Time: Thursday, December 15, 2016 16:41 - CONCLUSION: Negative for mass or hydronephrosis. Mildly prominent spleen.. José Miguel Gonsales MD FACR Hospital Course Patient was evaluated in emergency room, laboratory workup was completed. BMP was significant for acute renal injury which is a new finding, BUN 34, creatinine 2.38. Mild hyponatremia, sodium 133. CBC unremarkable. CT of the head negative. Vital signs, heart rate 110, respiratory rate 24, blood pressure 126/73, sats 96% on room air. Patient was on lisinopril. His most recent blood pressure is 109/58. Patient denied any urinary symptoms, no burning. Had been urinating adequate amounts. Urinalysis positive for bacteria. Culture pending. Patient was requesting consultation with psychiatry as he is concerned he's was taking too many medications and believes he needs adjustment. He will be agreeable to inpatient psychiatric admission if recommended. Patient was admitted for further evaluation and treatment. Psy consult was complete, According to note, Patient can leave off the psy meds and follow up with his OP Psy doctor. Patient was hydrated during brief stay, vital signs were monitored , CT was negative. Dr. Cintron revisited patient , answered questions , and felt patient was ok for pm discharge. Pt Condition on Discharge: Good Discharge Disposition: Discharge Home Discharge Instructions DIET: Follow Instructions for: As Tolerated, No Restrictions Activities you can perform: Weight Bearing as Marcello Follow up Referrals: PCP Follow-up - 2-3 Days Psychiatry Adult New Medications: Levofloxacin (Levaquin) 500 Mg Tablet 500 MG PO DAILY for Infection, #14 TAB 0 Refills Continued Medications: Amlodipine (Amlodipine) 5 Mg Tab 5 MG PO DAILY for Blood Pressure Management, #30 TAB 0 Refills Lisinopril (Lisinopril) 20 Mg Tab 20 MG PO BID, #30 TAB 0 Refills Discontinued Medications: Brexpiprazole (Rexulti) 2 Mg Tab 2 MG PO DAILY, TAB Hydroxyzine Pamoate (Vistaril) 50 Mg Cap 50 MG PO TID, CAP 0 Refills Lurasidone (Latuda) 60 Mg Tab 60 MG PO DAILY, #30 TAB 0 Refills Quetiapine (Seroquel) 50 Mg Tab 50 MG PO BID for schizophrenia, #60 TAB 0 Refills Venlafaxine (Effexor) 37.5 Mg Tab 150 MG PO DAILY, #60 TAB 0 Refills Mary Ellen Michelle Dec 16, 2016 18:27
[2016-12-17] MEDS ORDERED: BREX1TAB4 PO (22:58)
[2016-12-17] MEDS ORDERED: SERO50TA PO (22:58)
[2016-12-17] MEDS ORDERED: LURA1TAB2 PO (22:58)
[2016-12-17] MEDS ORDERED: EFFE150C PO (22:58)
[2016-12-17] MEDS ORDERED: VIST50CA PO (22:58)
== END 2016-12-16 18:24 | disposition home or self-care (01) ==
LOC: NEPE 12:58 → NEDA 16:15 → NEPFCDU 18:36
PROVIDERS: ADMIT Specialist; ATTEND Specialist
DX: R42 Dizziness and giddiness (principal); F31.9 Bipolar disorder, unspecified; E86.0 Dehydration; N17.9 Acute kidney failure, unspecified; J45.909 Unspecified asthma, uncomplicated; N39.0 Urinary tract infection, site not specified; B96.1 Klebsiella pneumoniae [K. pneumoniae] as the cause of diseases classified elsewhere; E87.1 Hypo-osmolality and hyponatremia; I10 Essential (primary) hypertension; F17.200 Nicotine dependence, unspecified, uncomplicated
CPT/HCPCS: 70450; 76775; 80048; 80053; 80307; 81001; 82550; 82552; 83735; 84484; 85025; 87077; 87086; 87186; 93005; 96361; 96365; 99285; G0378; J0696; J7030

== ENCOUNTER 2016-12-17 21:51 | Observation (INO) | payer BC ==
[~2016-12-17 21:51] MED LIST changes: -BREX1TAB4 PO; -HYDR50CA PO; +LEVA500T20 PO; -SERO50TA PO; -VENL37.5 PO
[2016-12-17 21:53] VITALS: BP 144/97; PULSE 109; RESP 18; TEMP 99; O2SAT 98
--- NOTE | 2016-12-17 22:19 | PD ---
HPI Chief Complaint: Allergic/Adverse Reaction Time Seen by Provider: 22:17 Travel History International Travel<30 days: No Contact w/Intl Traveler<30days: No Traveled to known affect area: No History of Present Illness HPI 36-year-old white male with significant past medical history of hypertension, bipolar, depression, just discharged yesterday for evaluation of acute kidney injury and complaint of dizziness, presents today for evaluation of similar symptoms. Patient reports that his psych medications were stopped while being in the hospital. He followed up with [facility] today and they restarted his Latuda, Effexor, Vistaril, Rexulti, and Seroquel. He states after taking his medications he began to feel dizzy. He reports his symptoms being worse when he goes from sitting to standing. He feels like he is forgetful and his vision is blurred since taking the medication. He feels as though his skin is crawling and is diaphoretic. Denies any illegal drug use. Has not drank any alcohol since leaving the hospital. Denies any recent illnesses, fever, chills. PFSH Past Medical History Asthma: Yes Blood Disorders: No Bipolar Disorder: Yes Anxiety: Yes Depression: Yes Heart Rhythm Problems: No Cancer: No Cardiovascular Problems: Yes (HTN) High Cholesterol: No Chemotherapy: No Chest Pain: No Congestive Heart Failure: No COPD: No Diminished Hearing: No Endocrine: No Gastrointestinal Disorders: Yes (HEP C ) Genitourinary: No Hepatitis: Yes (hep c) Hypertension: Yes Immune Disorder: No Musculoskeletal: No Neurologic: No Psychiatric: Yes (Bipolar ) Reproductive: No Respiratory: Yes (ASTHMA) Immunizations Current: Yes Sleep Apnea: No Past Surgical History Tonsillectomy: Yes Other Surgery: Yes (LEFT knee surgery) Social History Alcohol Use: No Tobacco Use: Yes Substance Use: Yes (dilaudid ) Allergies-Medications (Allergen,Severity, Reaction): Coded Allergies: Sulfa (Sulfonamide Antibiotics) (Verified Allergy, Severe, PT STS SKIN PEELS OFF., 12/17/16) Per pt. *MDRO Multi-Drug Resistant Organism (Verified Allergy, Unknown, 12/17/16) MRSA Reported Meds & Prescriptions Reported Meds & Active Scripts Active Levaquin (Levofloxacin) 500 Mg Tablet 500 Mg PO DAILY Reported Rexulti (Brexpiprazole) 2 Mg Tab 2 Mg PO DAILY Latuda (Lurasidone) 60 Mg Tab 60 Mg PO DAILY Seroquel (Quetiapine Fumarate) 50 Mg Tab 50 Mg PO BID Vistaril (Hydroxyzine Pamoate) 50 Mg Cap 50 Mg PO TID Rexulti (Brexpiprazole) 2 Mg Tab 2 Mg PO DAILY Effexor XR 24 HR (Venlafaxine HCl) 150 Mg Cap 150 Mg PO DAILY Lisinopril 20 Mg Tab 20 Mg PO BID Amlodipine (Amlodipine Besylate) 5 Mg Tab 5 Mg PO DAILY Review of Systems Except as stated in HPI: all other systems reviewed are Neg Physical Exam Narrative GENERAL: Well-nourished male with bizarre affect, seemingly anxious, but in no acute distress SKIN: Focused skin assessment diaphoretic and warm. HEAD: Atraumatic. Normocephalic. EYES: Pupils equal and round. No scleral icterus. No injection or drainage. ENT: No nasal bleeding or discharge. Mucous membranes pink and moist. NECK: Trachea midline. No JVD. CARDIOVASCULAR: Tachycardic rate and rhythm. No murmur appreciated. RESPIRATORY: No accessory muscle use. Clear to auscultation. Breath sounds equal bilaterally. GASTROINTESTINAL: Abdomen soft, non-tender, nondistended. Hepatic and splenic margins not palpable. MUSCULOSKELETAL: No obvious deformities. No clubbing. No cyanosis. No edema. NEUROLOGICAL: Awake and alert. No obvious cranial nerve deficits. Motor grossly within normal limits. Normal speech. Data Data Last Documented VS Vital Signs Date Time Temp Pulse Resp B/P (MAP) Pulse Ox O2 Delivery O2 Flow Rate FiO2 12/18/16 00:34 98 18 136/84 (101) 98 Room Air 12/17/16 21:53 99.0 Orders Orders Complete Blood Count With Diff (12/17/16 22:19) Basic Metabolic Panel (Bmp) (12/17/16 22:19) Urinalysis - C+S If Indicated (12/17/16 22:19) Electrocardiogram (12/17/16 22:19) Iv Access Insert/Monitor (12/17/16 22:19) Ecg Monitoring (12/17/16 22:19) Psych Screen (12/17/16 22:19) Drug Screen, Random Urine (12/17/16 22:19) Alcohol (Ethanol) (12/17/16 22:19) Salicylates (Aspirin) (12/17/16 22:19) Tylenol (Acetaminophen) (12/17/16 22:19) Creatine Kinase (Cpk) (12/17/16 22:19) Lorazepam Inj (Ativan Inj) (12/17/16 22:30) Sodium Chlor 0.9% 1000 Ml Inj (Ns 1000 M (12/17/16 22:30) Urine Culture (12/17/16 23:05) Sodium Chlor 0.9% 1000 Ml Inj (Ns 1000 M (12/18/16 00:30) Admit Order (Ed Use Only) (12/18/16 00:35) Consult Psychiatry (12/18/16 ) Labs Laboratory Tests Test 12/17/16 23:05 White Blood Count 8.4 TH/MM3 Red Blood Count 4.36 MIL/MM3 Hemoglobin 13.5 GM/DL Hematocrit 40.6 % Mean Corpuscular Volume 93.0 FL Mean Corpuscular Hemoglobin 31.0 PG Mean Corpuscular Hemoglobin Concent 33.4 % Red Cell Distribution Width 13.8 % Platelet Count 288 TH/MM3 Mean Platelet Volume 6.9 FL Neutrophils (%) (Auto) 65.4 % Lymphocytes (%) (Auto) 23.6 % Monocytes (%) (Auto) 9.7 % Eosinophils (%) (Auto) 0.6 % Basophils (%) (Auto) 0.7 % Neutrophils # (Auto) 5.5 TH/MM3 Lymphocytes # (Auto) 2.0 TH/MM3 Monocytes # (Auto) 0.8 TH/MM3 Eosinophils # (Auto) 0.1 TH/MM3 Basophils # (Auto) 0.1 TH/MM3 CBC Comment DIFF FINAL Differential Comment Urine Color YELLOW Urine Turbidity HAZY Urine pH 8.5 Urine Specific [place] 1.014 Urine Protein TRACE mg/dL Urine Glucose (UA) NEG mg/dL Urine Ketones NEG mg/dL Urine Occult Blood NEG Urine Nitrite NEG Urine Bilirubin NEG Urine Urobilinogen LESS THAN 2.0 MG/DL Urine Leukocyte Esterase NEG Urine RBC 1 /hpf Urine WBC 4 /hpf Urine Squamous Epithelial Cells <1 /hpf Urine Amorphous Sediment RARE Urine Bacteria MANY /hpf Urine Mucus FEW /lpf Microscopic Urinalysis Comment CULTURE INDICATED Blood Urea Nitrogen 33 MG/DL Creatinine 2.66 MG/DL Random Glucose 126 MG/DL Calcium Level 9.0 MG/DL Sodium Level 135 MEQ/L Potassium Level 4.7 MEQ/L Chloride Level 102 MEQ/L Carbon Dioxide Level 24.5 MEQ/L Anion Gap 9 MEQ/L Estimat Glomerular Filtration Rate 27 ML/MIN Total Creatine Kinase 125 U/L Salicylates Level 2.4 MG/DL Urine Opiates Screen NEG Acetaminophen Level LESS THAN 2.0 MCG/ML Urine Barbiturates Screen NEG Urine Amphetamines Screen NEG Urine Benzodiazepines Screen NEG Urine Cocaine Screen NEG Urine Cannabinoids Screen NEG Ethyl Alcohol Level LESS THAN 3 MG/DL MDM Medical Decision Making Medical Screen Exam Complete: Yes Emergency Medical Condition: Yes Medical Record Reviewed: Yes Differential Diagnosis Medication adverse effect versus side effect versus serotonin syndrome versus electrolyte abnormality versus polysubstance abuse Narrative Course 36-year-old male presents to the emergency department today again after being discharged yesterday for symptoms similar to his most recent admission. Patient states that they started after taking his medications as prescribed by [facility]. Patient appears anxious, he has a bizarre affect, and is diaphoretic. Lab work is ordered. Patient is given IV normal saline bolus. Laboratory Tests Test 12/17/16 23:05 White Blood Count 8.4 TH/MM3 Red Blood Count 4.36 MIL/MM3 Hemoglobin 13.5 GM/DL Hematocrit 40.6 % Mean Corpuscular Volume 93.0 FL Mean Corpuscular Hemoglobin 31.0 PG Mean Corpuscular Hemoglobin Concent 33.4 % Red Cell Distribution Width 13.8 % Platelet Count 288 TH/MM3 Mean Platelet Volume 6.9 FL Neutrophils (%) (Auto) 65.4 % Lymphocytes (%) (Auto) 23.6 % Monocytes (%) (Auto) 9.7 % Eosinophils (%) (Auto) 0.6 % Basophils (%) (Auto) 0.7 % Neutrophils # (Auto) 5.5 TH/MM3 Lymphocytes # (Auto) 2.0 TH/MM3 Monocytes # (Auto) 0.8 TH/MM3 Eosinophils # (Auto) 0.1 TH/MM3 Basophils # (Auto) 0.1 TH/MM3 CBC Comment DIFF FINAL Differential Comment Urine Color YELLOW Urine Turbidity HAZY Urine pH 8.5 Urine Specific [place] 1.014 Urine Protein TRACE mg/dL Urine Glucose (UA) NEG mg/dL Urine Ketones NEG mg/dL Urine Occult Blood NEG Urine Nitrite NEG Urine Bilirubin NEG Urine Urobilinogen LESS THAN 2.0 MG/DL Urine Leukocyte Esterase NEG Urine RBC 1 /hpf Urine WBC 4 /hpf Urine Squamous Epithelial Cells <1 /hpf Urine Amorphous Sediment RARE Urine Bacteria MANY /hpf Urine Mucus FEW /lpf Microscopic Urinalysis Comment CULTURE INDICATED Blood Urea Nitrogen 33 MG/DL Creatinine 2.66 MG/DL Random Glucose 126 MG/DL Calcium Level 9.0 MG/DL Sodium Level 135 MEQ/L Potassium Level 4.7 MEQ/L Chloride Level 102 MEQ/L Carbon Dioxide Level 24.5 MEQ/L Anion Gap 9 MEQ/L Estimat Glomerular Filtration Rate 27 ML/MIN Total Creatine Kinase 125 U/L Salicylates Level 2.4 MG/DL Urine Opiates Screen NEG Acetaminophen Level LESS THAN 2.0 MCG/ML Urine Barbiturates Screen NEG Urine Amphetamines Screen NEG Urine Benzodiazepines Screen NEG Urine Cocaine Screen NEG Urine Cannabinoids Screen NEG Ethyl Alcohol Level LESS THAN 3 MG/DL Due to acute worsening in renal function since yesterday, patient be admitted observation for further evaluation. I've discussed the patient with Cristian Sanchez. Patient will be admitted to Dr. Cintron Diagnosis Primary Impression: MARI (acute kidney injury) Additional Impression: Bipolar 1 disorder, depressed, partial remission Admitting Information Admitting Physician Requests: Observation Condition: Stable Promise Moseley Dec 17, 2016 22:19
[2016-12-17] MEDS ORDERED: LORazepam 2 MG/ML VIAL IV PUSH ONE (22:30)
[2016-12-17] MEDS ORDERED: SODIUM CHLOR 0.9% 1000 ML INJ 1,000 ML IV ONE (22:30)
[2016-12-17] MEDS ORDERED: SERO50TA PO (22:58)
[2016-12-17] MEDS ORDERED: VIST50CA PO (22:58)
[2016-12-17] MEDS ORDERED: EFFE150C PO (22:58)
[2016-12-17] MEDS ORDERED: LURA1TAB2 PO (22:58)
[2016-12-17] MEDS ORDERED: BREX1TAB4 PO (22:58)
[2016-12-17 23:36] LABS: AUTOMATED NEUTROPHIL # 5.5 TH/MM3 (1.8-7.7); BASOPHIL # 0.1 TH/MM3 (0-0.2); BASOPHIL % 0.7 % (0.0-2.0); EOSINOPHIL # 0.1 TH/MM3 (0-0.4); EOSINOPHIL % 0.6 % (0.0-4.0); HEMATOCRIT 40.6 % (39.0-51.0); HEMO FLAGS DIFF FINAL; LYMPH % 23.6 % (9.0-44.0); MEAN CORPUSCULAR HGB CONC 33.4 % (32.0-36.0); MONO % 9.7 % (0.0-8.0); NEUT % 65.4 % (16.0-70.0); PLATELET COUNT 288 TH/MM3 (150-450); RED BLOOD COUNT 4.36 MIL/MM3 (4.50-5.90); RED CELL DISTRIBUTION WIDTH 13.8 % (11.6-17.2); WHITE BLOOD COUNT 8.4 TH/MM3 (4.0-11.0)
[2016-12-17 23:39] LABS: BACTERIA, URINE MANY /hpf; BLOOD, URINE NEG (NEG); COMMENT (UR) CULTURE INDICATED; CULTURE IF INDICATED CULTURE INDICATED; GLUCOSE,URINE NEG (NEG); KETONE, URINE NEG (NEG); MUCUS URINE FEW /lpf (OCC); NITRITE,URINE NEG (NEG); PH, URINE 8.5 (5.0-8.5); SQUAMOUS EPITHELIAL CELL URINE <1 /hpf (0-5); URINE COLOR YELLOW (YELLW/STRAW)
[2016-12-18] VITALS (12 sets, daily range): BP systolic 84–136; BP diastolic 48–84; PULSE 65–98; RESP 16–18; TEMP 97.4–98.3; O2SAT 94–99
[2016-12-18 00:07] LABS: ANION GAP 9 MEQ/L (5-15); BICARBONATE 24.5 MEQ/L (21.0-32.0); BLOOD UREA NITROGEN 33 MG/DL (7-18); CHLORIDE 102 MEQ/L (98-107); CREATINE KINASE 125 U/L (39-308); GLOMERULAR FILTRATION RATE 27 ML/MIN (>89); POTASSIUM 4.7 MEQ/L (3.5-5.1); SODIUM (NA) 135 MEQ/L (136-145)
[2016-12-18 00:09] LABS: ACETAMINOPHEN LESS THAN 2.0 MCG/ML (10.0-30.0); ALCOHOL LESS THAN 3 MG/DL (0-5)
[2016-12-18] MEDS ORDERED: SODIUM CHLOR 0.9% 1000 ML INJ 1,000 ML IV ONE (00:30)
[2016-12-18] MEDS ORDERED: NALOXONE HCL 0.4 MG/ML AMP IV PRN (01:15)
[2016-12-18] MEDS ORDERED: SODIUM CHLORIDE 0.9% FLUSH 10 ML FLUSH IV FLUSH PRN (01:15)
[2016-12-18] MEDS ORDERED: MAGNESIUM HYDROXIDE SUSP 30 ML CUP PO PRN (01:15)
[2016-12-18] MEDS ORDERED: SENNOSIDES 8.6 MG TAB PO PRN (01:15)
[2016-12-18] MEDS ORDERED: LACTULOSE SYRUP 20 GM/30 ML CUP PO PRN (01:15)
[2016-12-18] MEDS ORDERED: ONDANSETRON HCL 4 MG/2 ML VIAL IVP PRN (01:15)
[2016-12-18] MEDS ORDERED: LORazepam 1 MG TAB PO PRN (01:15)
[2016-12-18] MEDS ORDERED: BISACODYL 10 MG SUPP RECTAL PRN (01:15)
[2016-12-18] MEDS: SODIUM CHLOR 0.9% 1000 ML INJ 1,000 ML IV SCH ×3 (02:24→21:09)
[2016-12-18] MEDS: cefTRIAXone INJ 1,000 MG in SODIUM CHLORIDE 0.9% INJ 100 ML IV SCH (02:24)
[2016-12-18] MEDS: HEPARIN SODIUM - SQ 10,000 UNITS/ML VIAL SQ SCH ×2 (05:48→18:27)
[2016-12-18] MEDS: SODIUM CHLORIDE 0.9% FLUSH 10 ML FLUSH IV FLUSH SCH ×2 (08:15→21:00)
[2016-12-18] MEDS: VENLAFAXINE HCL XR 75 MG CAP PO SCH (08:15)
[2016-12-18] MEDS: amLODIPine BESYLATE 5 MG TAB PO SCH (08:16)
--- NOTE | 2016-12-18 08:19 | MH ---
cc: JEFF CINTRON DATE OF ADMISSION 12/18/2016 CHIEF COMPLAINT Nausea, vomiting, possible syncope. HISTORY OF PRESENT ILLNESS This is a pleasant 36-year-old male who was recently admitted to the hospital from December 15 until December 16 during which time he had been admitted with dizziness, acute kidney injury, loose stool. The patient thought this was from his medications. He does have Bipolar disease. He had been on Seroquel and Effexor, but was starting to become manic. He was diagnosed with bipolar depression. He has been started on Seroquel, Latuda, and Rexulti in the past two weeks and he feels like he cannot tolerate it. The patient was seen by a psychiatrist who recommended following up with the [facility] which the patient did. They told him to restart his medications, give it more time. The patient threw up several times in the afternoon, he felt dizzy. He went to stand up and lost consciousness for a second. He did not have any seizure activity. He has had some nausea and vomiting several times. No blood or black emesis. He did have a few loose stools as well which were greenish brown. He called the [facility] and they recommended him coming back to the emergency room. He was seen in the and found to be dehydrated with acute kidney injury again and was recommended for observation. MEDICATIONS On admission, please see the chart. ALLERGIES SULFA PAST MEDICAL HISTORY 1. Depression 2. Hepatitic C 3. Hyperlipidemia 4. Hypertension 5. Bipolar disease 6. Asthma PAST SURGICAL HISTORY Left knee surgery SOCIAL HISTORY The patient smokes a small amount, lives alone. No alcohol or drug use recently. FAMILY HISTORY Father from a GI bleed. Mother is alive and well. Sister has bipolar. REVIEW OF SYSTEMS A 10-point review of systems, no other pertinent findings. PHYSICAL EXAMINATION VITAL SIGNS: Afebrile, heart rate 98, respirations 18, blood pressure 136/84. GENERAL: This is a 36-year-old male resting in bed. He was sleeping, awakens easily. He is in no distress. HEAD, EYES, EARS, NOSE, AND THROAT: Mucous membranes are moist. No jaundice. NECK: Supple. CARDIOVASCULAR: Regular rate and rhythm. RESPIRATORY: Lungs are clear. GASTROINTESTINAL: Bowel sounds are present. No tenderness, guarding, tenderness or rebound. GENITOURINARY: No CVA tenderness. No suprapubic tenderness. MUSCULOSKELETAL: No edema. Homans negative. Distal pulses are palpable. NEUROLOGIC: Awake, alert and oriented times three. Speech is clear and fluent. Moving all extremities freely. PSYCHIATRIC: The patient is appropriate, calm, pleasant and in no distress. INVESTIGATIONS CBC is essentially normal. BMP shows a sodium of 135, BUN 33, creatinine 2.66, GFR 27. Urinalysis shows many bacteria, few mucous. Toxicology, salicylate levels 2.4, acetaminophen level less than 2, alcohol level less than 3, urine drug screen is negative. Recent urinalysis showed Klebsiella pneumonia with multiple susceptibilities. IMPRESSION 1. Acute kidney injury 2. Dehydration 3. Nausea and vomiting 4. Diarrhea 5. Klebsiella urinary tract infection 6. Dizziness with orthostatic event 7. Bipolar disease 8. Hypertension DISCUSSION The patient is placed on observation status to Dr. Cintron's service. The plan is to hydrate him. We will resume his Effexor, his Seroquel and Vistaril. We will hold the Latuda and the Rexulti and consult psychiatry. I will place him on antibiotics for the urinary tract infection. We will continue anti-emetics as needed and DVT prophylaxis and make further recommendations as his case progresses. Estimated length of stay is less than two days. Anticipated discharge is home. Dictated by: Cristian Sanchez PA-C Jeff Cintron MD JP/THEODORA /1:15 AM /7:54 AM pt seen and examined this am face to face to time spent with pt chart reviewed dw pt some of old record reviewed agree with above plan of care will follow MTDD
--- NOTE | 2016-12-18 12:48 | EKG ---
Date Performed: 12/17/2016 Time Performed: 23:42:14 PTAGE: 36 years EKG: Sinus rhythm MODERATE VOLTAGE CRITERIA FOR LVH, CONSIDER NORMAL VARIANT BORDERLINE ECG PREVIOUS TRACING : 12/15/2016 14.00 DOCTOR: Darius Butler Interpretating Date/Time 12/18/2016 12:44:36
--- NOTE | 2016-12-18 14:30 | PD.PSY.CON ---
Provisional Diagnosis Admission Date Dec 18, 2016 at 00:36 [place] I. Bipolar disorder [place] II. Unspecified personality disorder History of Present Illness Service Psychiatry Consult Requested By Reason for Consult Medication management Primary Care Physician Klever Brito MD HPI The patient is a 36-year-old man, domiciled alone in [place], , unemployed, with psychiatric history bipolar disorder, opiate use disorder, in sustained full remission, 2 previous psychiatric hospitalizations, he was hospitalized here at [facility] in July, he was seeing in the ER due to a Tylenol overdose about 2 weeks ago, also seeing in the ER for medication adjustment to days ago, well-konw by service, history of manipulative and drug- seeking behavior, 2 previous suicidal attempts, he was [facility] from [facility], outpatient care in [facility], he is on Effexor 150, Latuda 60, Seroquel 50 mg, he has medical history hypertension. This time patient comes back to the ER requesting that his medication are changed. He says that he went yesterday to his outpatient psychiatrist who refused to change his medications. He says that he does not feel comfortable with this psychotropics. However, he denies depressive symptoms, he denies anxiety, he denies daniele and he denies psychosis. She denies the use of illicit drugs or alcohol. He denies suicidal and homicidal ideation, he denies visual and auditory hallucinations. Patient is oriented 3, no attention deficit, no fluctuation of consciousness. Patient says that he is compliant with his medications, but he needs to have a discussion regarding this psychotropic regimen with his psychiatrist. He denies the use of illicit drugs and alcohol. Review of Systems Constitutional: DENIES: Diaphoretic episodes, Fatigue, Fever, Weight gain, Weight loss, Chills, Dizziness, Change in appetite, Night Sweats Endocrine: DENIES: Heat/cold intolerance, Polydipsia, Polyuria, Polyphagia Eyes: DENIES: Blurred vision, Diplopia, Eye inflammation, Eye pain, Vision loss , Photosensitivity, Double Vision Ears, nose, mouth, throat: DENIES: Tinnitus, Hearing loss, Vertigo, Nasal discharge, Oral lesions, Throat pain, Hoarseness, Ear Pain, Running Nose, Epistaxis, Sinus Pain, Toothache, Odynophagia Respiratory: DENIES: Apneas, Cough, Snoring, Wheezing, Hemoptysis, Sputum production, Shortness of breath Cardiovascular: DENIES: Chest pain, Palpitations, Syncope, Dyspnea on Exertion , PND, Lower Extremity Edema, Orthopnea, Claudication Gastrointestinal: DENIES: Abdominal pain, Black stools, Bloody stools, Constipation, Diarrhea, Nausea, Vomiting, Difficulty Swallowing, Anorexia Genitourinary: DENIES: Sexual dysfunction, Urinary frequency, Urinary incontinence, Urgency, Hematuria, Dysuria, Nocturia, Penile Discharge, Testicular Pain, Testicular Swelling Integumentary: DENIES: Abnormal pigmentation, Nail changes, Pruritus, Rash Immunologic/allergic: DENIES: Eczema, Urticaria Neurologic: DENIES: Abnormal gait, Headache, Localized weakness, Paresthesias, Seizures, Speech Problems, Tremor, Poor Balance Psychiatric: COMPLAINS OF: Anxiety, Confusion, Mood changes, Depression, Hallucinations, Agitation, Suicidal Ideation, Homicidal Ideation, Delusions Past Family Social History Coded Allergies: Sulfa (Sulfonamide Antibiotics) (Verified Allergy, Severe, PT STS SKIN PEELS OFF., 12/17/16) Per pt. *MDRO Multi-Drug Resistant Organism (Verified Allergy, Unknown, 12/17/16) MRSA Active Scripts Levofloxacin (Levaquin) 500 Mg Tablet, 500 MG PO DAILY for Infection, #14 TAB 0 Refills Prov:Luis Miguel Cintron MD 12/16/16 Reported Medications Brexpiprazole (Rexulti) 2 Mg Tab, 2 MG PO DAILY, TAB 12/17/16 Lurasidone (Latuda) 60 Mg Tab, 60 MG PO DAILY, #30 TAB 0 Refills 12/17/16 Quetiapine (Seroquel) 50 Mg Tab, 50 MG PO BID, #60 TAB 0 Refills 12/17/16 Hydroxyzine Pamoate (Vistaril) 50 Mg Cap, 50 MG PO TID, CAP 0 Refills 12/17/16 Brexpiprazole (Rexulti) 2 Mg Tab, 2 MG PO DAILY, TAB 12/17/16 Venlafaxine ER 24 HR (Effexor XR 24 HR) 150 Mg Cap, 150 MG PO DAILY, #30 CAP 0 Refills 12/17/16 Lisinopril (Lisinopril) 20 Mg Tab, 20 MG PO BID, #30 TAB 0 Refills 07/25/16 Amlodipine (Amlodipine) 5 Mg Tab, 5 MG PO DAILY for Blood Pressure Management, # 30 TAB 0 Refills 07/25/16 Discontinued Reported Medications Hydroxyzine Pamoate (Vistaril) 50 Mg Cap, 50 MG PO TID, CAP 0 Refills 12/15/16 Lurasidone (Latuda) 60 Mg Tab, 60 MG PO DAILY, #30 TAB 0 Refills 12/15/16 Brexpiprazole (Rexulti) 2 Mg Tab, 2 MG PO DAILY, TAB 11/12/16 Venlafaxine (Effexor) 37.5 Mg Tab, 150 MG PO DAILY, #60 TAB 0 Refills 07/25/16 Hydroxyzine Pamoate (Hydroxyzine Pamoate) 50 Mg Cap, 50 MG PO HS, CAP 0 Refills 11/12/16 Discontinued Scripts Quetiapine (Seroquel) 50 Mg Tab, 50 MG PO BID for schizophrenia, #60 TAB 0 Refills Prov:Dutch Alba MD 11/28/16 Current Medications Medications (Trade) Dose Ordered Sig/Lakeisha Route Start Time Stop Time Status Last Admin Sodium Chloride 1,000 ml @ 100 mls/hr Q10H IV 12/18/16 01:05 12/18/16 10:53 (NS Flush) 2 ml UNSCH PRN IV FLUSH 12/18/16 01:15 (NS Flush) 2 ml BID IV FLUSH 12/18/16 09:00 (Zofran Inj) 4 mg Q6H PRN IVP 12/18/16 01:15 (Heparin Inj) 5,000 units Q12H SQ 12/18/16 06:00 12/18/16 05:48 (Narcan Inj) 0.4 mg UNSCH PRN IV 12/18/16 01:15 (Milk Of Magnesia Liq) 30 ml Q12H PRN PO 12/18/16 01:15 (Senokot) 17.2 mg Q12H PRN PO 12/18/16 01:15 (Dulcolax Supp) 10 mg DAILY PRN RECTAL 12/18/16 01:15 (Lactulose Liq) 30 ml DAILY PRN PO 12/18/16 01:15 (Ativan) 1 mg Q8H PRN PO 12/18/16 01:15 (SEROquel) 100 mg HS PO 12/18/16 21:00 Ceftriaxone Sodium 1000 mg/ Sodium Chloride 100 ml @ 200 mls/hr Q24H IV 12/18/16 02:00 12/18/16 02:24 (Norvasc) 5 mg DAILY PO 12/18/16 09:00 (Effexor Xr) 150 mg DAILY PO 12/18/16 09:00 12/18/16 08:15 (Vistaril) 50 mg Q8H PO 12/18/16 06:00 12/18/16 13:29 Family History No family psychiatric history Social History Patient was born and raised in [place], he lives alone in his apartment in [place] [facility], unemployed, single, supported by parents, highest level of education is a master degree in economics. Physical Exam Vital Signs Vital Signs Date Time Temp Pulse Resp B/P (MAP) Pulse Ox O2 Delivery O2 Flow Rate FiO2 12/18/16 12:23 97.8 70 16 98/52 (67) 94 12/18/16 08:21 21 12/18/16 00:34 Room Air I/O 12/18/16 12/18/16 12/19/16 08:00 16:00 00:00 Intake Total 90 ml Balance 90 ml Lab Results Test 12/17/16 23:05 12/18/16 11:30 White Blood Count 8.4 TH/MM3 Red Blood Count 4.36 MIL/MM3 Hemoglobin 13.5 GM/DL Hematocrit 40.6 % Mean Corpuscular Volume 93.0 FL Mean Corpuscular Hemoglobin 31.0 PG Mean Corpuscular Hemoglobin Concent 33.4 % Red Cell Distribution Width 13.8 % Platelet Count 288 TH/MM3 Mean Platelet Volume 6.9 FL Neutrophils (%) (Auto) 65.4 % Lymphocytes (%) (Auto) 23.6 % Monocytes (%) (Auto) 9.7 % Eosinophils (%) (Auto) 0.6 % Basophils (%) (Auto) 0.7 % Neutrophils # (Auto) 5.5 TH/MM3 Lymphocytes # (Auto) 2.0 TH/MM3 Monocytes # (Auto) 0.8 TH/MM3 Eosinophils # (Auto) 0.1 TH/MM3 Basophils # (Auto) 0.1 TH/MM3 CBC Comment DIFF FINAL Differential Comment Urine Color YELLOW Urine Turbidity HAZY Urine pH 8.5 Urine Specific [place] 1.014 Urine Protein TRACE mg/dL Urine Glucose (UA) NEG mg/dL Urine Ketones NEG mg/dL Urine Occult Blood NEG Urine Nitrite NEG Urine Bilirubin NEG Urine Urobilinogen LESS THAN 2.0 MG/DL Urine Leukocyte Esterase NEG Urine RBC 1 /hpf Urine WBC 4 /hpf Urine Squamous Epithelial Cells <1 /hpf Urine Amorphous Sediment RARE Urine Bacteria MANY /hpf Urine Mucus FEW /lpf Microscopic Urinalysis Comment CULTURE INDICATED Blood Urea Nitrogen 33 MG/DL Creatinine 2.66 MG/DL Random Glucose 126 MG/DL Calcium Level 9.0 MG/DL Sodium Level 135 MEQ/L Potassium Level 4.7 MEQ/L Chloride Level 102 MEQ/L Carbon Dioxide Level 24.5 MEQ/L Anion Gap 9 MEQ/L Estimat Glomerular Filtration Rate 27 ML/MIN Total Creatine Kinase 125 U/L Salicylates Level 2.4 MG/DL Urine Opiates Screen NEG Acetaminophen Level LESS THAN 2.0 MCG/ML Urine Barbiturates Screen NEG Urine Amphetamines Screen NEG Urine Benzodiazepines Screen NEG Urine Cocaine Screen NEG Urine Cannabinoids Screen NEG Ethyl Alcohol Level LESS THAN 3 MG/DL Nasal Screen MRSA (PCR) MRSA NOT DETECTED Date/Time Source Procedure Growth Status 12/17/16 23:05 Urine Random Urine Urine Culture - Preliminary IMMATURE GROWTH - REINCUBATE Resulted Mental Status Examination Appearance man, age appearing, good hygiene, calm and cooperative Speech: Unremarkable Orientation: x3 Memory: Unremarkable Thought Process: Logical Thought Content: Unremarkable Hallucination Type: None Suicidal Ideation: No Previous Suicide Attempts: Yes Homicidal Ideation: No Previous Homicide Attempts: No Judgment: WNL Affect: Good Mood: Appropriate Motor Activity: Normal gait Assessment & Plan Problem List: (1) Bipolar 1 disorder, depressed, partial remission ICD Codes: F31.75 - Bipolar disorder, in partial remission, most recent episode depressed Status: Acute Assessment & Plan: On psychiatric evaluation this patient does not present any evidence of acute, concerning or significant symptomatology of depression, anxiety, daniele or psychosis. The patient denies suicidal and homicidal ideation , he denies visual and auditory hallucinations. Patient reports that he has been compliant with his medications, but he has been having dizziness and weakness that he attributes to psychotropics. He does not meet criteria for psychiatric admission. My recommendation again is to hold psychotropics and discuss changes with outpatient psychiatrist. Patient is widely educated about the convenience of this causing changing in psychotropics with outpatient psychiatrist and no with ER psychiatrist that wont follow-up the progression and side effects. Consult appreciated. Assessment & Plan Estimated LOS: days Dylan Wilson MD Dec 18, 2016 14:30
[2016-12-18] MEDS ORDERED: QUEtiapine FUMARATE 100 MG TAB PO SCH (21:00)
[2016-12-19] MEDS: cefTRIAXone INJ 1,000 MG in SODIUM CHLORIDE 0.9% INJ 100 ML IV SCH (02:31)
[2016-12-19 06:12] VITALS: BP 124/81; PULSE 71; RESP 18; TEMP 98.4; O2SAT 93
[2016-12-19] MEDS: HEPARIN SODIUM - SQ 10,000 UNITS/ML VIAL SQ SCH (06:14)
[2016-12-19] MEDS: SODIUM CHLORIDE 0.9% FLUSH 10 ML FLUSH IV FLUSH SCH (07:59)
[2016-12-19] MEDS: amLODIPine BESYLATE 5 MG TAB PO SCH (07:59)
[2016-12-19] MEDS: SODIUM CHLOR 0.9% 1000 ML INJ 1,000 ML IV SCH (07:59)
[2016-12-19] MEDS: VENLAFAXINE HCL XR 75 MG CAP PO SCH (08:00)
[2016-12-19 08:13] VITALS: BP 132/84; PULSE 71; RESP 18; TEMP 97.8; O2SAT 98
--- NOTE | 2016-12-19 08:14 | HHI.DCPOC ---
Discharge Care Plan Diagnosis: (1) Dizziness (2) MARI (acute kidney injury) Your Health Problems Are: Anxiety Difficulty with ADL Goals to Promote Your Health * To prevent worsening of your condition and complications * To maintain your health at the optimal level Directions to Meet Your Goals Take your medications as prescribed Follow your dietary instruction Follow activity as directed Keep your appointments as scheduled Take your immunizations and boosters as scheduled If your symptoms worsen call your PCP, if no PCP go to Urgent Care Center or Emergency Room Smoking is Dangerous to Your Health. Avoid second hand smoke Call the 24-hour hour crisis hotline for domestic abuse at [facility] Dec 19, 2016 08:14
[2016-12-19 08:19] LABS: MEAN CELL VOLUME 92.9 FL (80.0-100.0); MEAN CORPUSCULAR HEMOGLOBIN 31.7 PG (27.0-34.0); MEAN CORPUSCULAR HGB CONC 34.1 % (32.0-36.0); PLATELET COUNT 251 TH/MM3 (150-450); RED BLOOD COUNT 3.98 MIL/MM3 (4.50-5.90); RED CELL DISTRIBUTION WIDTH 13.3 % (11.6-17.2); REVIEW FLAG FINAL; WHITE BLOOD COUNT 5.5 TH/MM3 (4.0-11.0)
[2016-12-19 09:00] LABS: BICARBONATE 24.3 MEQ/L (21.0-32.0); POTASSIUM 4.6 MEQ/L (3.5-5.1)
--- NOTE | 2016-12-19 09:03 | HHI.PR ---
Subjective Subjective Remarks Sitting up in bed, denies any dizziness, no weakness No chest pain No shortness of breath Voiding okay No diarrhea Review of Systems Constitutional Constitutional Remarks 12 point review of systems completed, negative except as noted above Vitals/Results Vital Signs Vital Signs Date Time Temp Pulse Resp B/P (MAP) Pulse Ox O2 Delivery O2 Flow Rate FiO2 12/19/16 08:13 97.8 71 18 132/84 (100) 98 12/19/16 06:12 98.4 71 18 124/81 (95) 93 12/18/16 23:29 97.5 81 17 124/77 (93) 96 12/18/16 20:28 97 12/18/16 19:48 98.3 74 17 126/79 (95) 96 12/18/16 15:28 98.3 68 16 112/63 (79) 96 12/18/16 12:23 97.8 70 16 98/52 (67) 94 12/18/16 10:05 95/53 (67) CBC/BMP: 12/19/16 0734 12/17/16 2305 Lab Results Laboratory Tests Test 12/18/16 11:30 12/19/16 07:34 Nasal Screen MRSA (PCR) MRSA NOT DETECTED White Blood Count 5.5 TH/MM3 Red Blood Count 3.98 MIL/MM3 Hemoglobin 12.6 GM/DL Hematocrit 37.0 % Mean Corpuscular Volume 92.9 FL Mean Corpuscular Hemoglobin 31.7 PG Mean Corpuscular Hemoglobin Concent 34.1 % Red Cell Distribution Width 13.3 % Platelet Count 251 TH/MM3 Mean Platelet Volume 7.5 FL Physical Exam General General Appearance: Well Developed, Well Nourished, No Acute Distress, Comfortable Eyes Eye Exam: Pupils Equal, Pupils Reactive Ears & Nose Ears & Nose Exam: Nasal Mucosa [place] Throat Throat Exam: Oral Mucosa [place] & Moist Neck Neck Exam: Neck Supple, Trachea Midline Pulmonary Resp Exam: Clear Bilaterally, No Distress Cardiology CV Exam: Regular, Good Perfusion Gastrointestinal/Abdomen GI Exam: Soft, Non-Tender, Bowel Sounds Present, Non-Distended Musculoskeletal MS Exam: Joints Intact Integumentary Skin Exam: Warm, Dry Extremeties Extremities Exam: No Edema, Pedal Pulses Palpable Neurologic Neuro Exam: Alert, Awake, Oriented, Speech Clear, Moving All Extremities, No Focal Deficits Psychiatric Psych Exam: Appropriate Responses VTE Prophylaxis VTE Prophylaxis Device: SCDs Assessment/Plan Problem List: (1) MARI (acute kidney injury) ICD Codes: N17.9 - Acute kidney failure, unspecified Status: Acute (2) Chronic bipolar disorder ICD Codes: F31.9 - Bipolar disorder, unspecified Status: Chronic (3) Dizziness ICD Codes: R42 - Dizziness and giddiness Status: Acute (4) UTI (urinary tract infection) ICD Codes: N39.0 - Urinary tract infection, site not specified Status: Resolved (5) Depression ICD Codes: F32.9 - Major depressive disorder, single episode, unspecified Status: Chronic (6) Dehydration ICD Codes: E86.0 - Dehydration Status: Acute Assessment/Plan Continue with IV fluids BMP pending this morning Voiding okay, adequate by mouth intake Denies any dizziness Evaluated per psychiatry, recommended to hold psychotropic agents until he sees his outpatient team Was recommended to follow-up with his outpatient psychiatric team for adjustment of medications so appropriate follow-up can be done Discussed with patient in detail, he sees staff at [facility]. Indicates he will be making appointment for follow-up this next week. UTI appears to be resolving, he is instructed to complete antibiotics at home - - already has prescription. continue with Rocephin for now We'll wait for BMP to be resulted, possible discharge today Needs to follow-up with psychiatry, PCP Increase fluid intake Activity as tolerated Discussed with RN Discussed with patient Discussed with Dr. Cintron This patient was seen by myself and Dr. Cintron, this note is written on his behalf Problem Qualifiers (1) UTI (urinary tract infection): (2) Depression: Qualified Codes: F32.9 - Major depressive disorder, single episode, unspecified Seda Forte Dec 19, 2016 09:03
== END 2016-12-19 11:02 | disposition home or self-care (01) ==
LOC: NEPD 21:51 → NEDA 12-18 00:36 → NEPFCDU 12-18 02:04
PROVIDERS: ADMIT Specialist; ATTEND Specialist
DX: N17.9 Acute kidney failure, unspecified (principal); E86.0 Dehydration; N39.0 Urinary tract infection, site not specified; B96.1 Klebsiella pneumoniae [K. pneumoniae] as the cause of diseases classified elsewhere; R11.2 Nausea with vomiting, unspecified; R19.7 Diarrhea, unspecified; R42 Dizziness and giddiness; I10 Essential (primary) hypertension; R82.99 Other abnormal findings in urine; F32.9 Major depressive disorder, single episode, unspecified
CPT/HCPCS: 80048; 80307; 81001; 82550; 85025; 85027; 87086; 87641; 93005; 96361; 96365; 96372; 96375; 99285; G0378; J0696; J1644; J2060; J7030

== ENCOUNTER 2016-12-23 23:31 | Emergency (ER) | payer BC ==
[~2016-12-23] VITALS: Ht 198.1 cm; Wt 103.0 kg
[~2016-12-23 23:31] MED LIST changes: +EFFE150C PO; -LISI-515 PO; +SERO50TA PO; +VIST50CA PO
[2016-12-23 23:33] VITALS: BP 160/90; RESP 16; TEMP 98.1; O2SAT 98
== END 2016-12-24 00:46 | disposition left against medical advice (07) ==
LOC: NED 23:31
DX: R42 Dizziness and giddiness (principal); Z53.21 Procedure and treatment not carried out due to patient leaving prior to being seen by health care provider
CPT/HCPCS: 99281

== ENCOUNTER 2016-12-24 21:31 | Emergency (ER) | payer BC ==
[~2016-12-24] VITALS: Ht 198.1 cm; Wt 103.0 kg
[2016-12-24 21:34] VITALS: BP 156/95; PULSE 101; RESP 16; TEMP 98.4; O2SAT 99
[2016-12-24 22:33] VITALS: BP 144/92; PULSE 86; RESP 18
--- NOTE | 2016-12-24 23:06 | PD ---
HPI Chief Complaint: Syncope/Near-Syncope Time Seen by Provider: 22:41 Travel History International Travel<30 days: No Contact w/Intl Traveler<30days: No Traveled to known affect area: No History of Present Illness HPI 36yo M with PMH of HTN and bipolar disorder presents to the ED with c/o episode of dizziness and fainting. States he stood up from sitting yesterday and felt lightheaded and fell backwards on the couch. Said he had some bright lights in his eyes as well. Also had another episode today and was bending over and then stood up and saw bright lights and felt dizzy before falling and hitting the grass. States he has a headache now. Denies any chest pain, sob, n/v, abdominal pain, focal weakness or numbness. States he recently had his seroquel and rexulti taken out on Thursday by his psychiatrist. Pt has been having a few day of nonbloody diarrhea. PFSH Past Medical History Asthma: Yes Blood Disorders: No Bipolar Disorder: Yes Anxiety: Yes Depression: Yes Heart Rhythm Problems: No Cancer: No Cardiovascular Problems: Yes (HTN) High Cholesterol: No Chemotherapy: No Chest Pain: No Congestive Heart Failure: No COPD: No Diminished Hearing: No Endocrine: No Gastrointestinal Disorders: Yes (HEP C ) Genitourinary: No Hepatitis: Yes (hep c) Hypertension: Yes Immune Disorder: No Musculoskeletal: No Neurologic: No Psychiatric: Yes (Bipolar ) Reproductive: No Respiratory: Yes (Asthma) Immunizations Current: Yes Sleep Apnea: No Past Surgical History Tonsillectomy: Yes Other Surgery: Yes (LEFT knee surgery) Social History Alcohol Use: No Tobacco Use: Yes Substance Use: Yes (dilaudid ) Allergies-Medications (Allergen,Severity, Reaction): Coded Allergies: Sulfa (Sulfonamide Antibiotics) (Verified Allergy, Severe, PT STS SKIN PEELS OFF., 12/23/16) Per pt. Reported Meds & Prescriptions Reported Meds & Active Scripts Active Levaquin (Levofloxacin) 500 Mg Tablet 500 Mg PO DAILY Reported Seroquel (Quetiapine Fumarate) 50 Mg Tab 50 Mg PO BID Vistaril (Hydroxyzine Pamoate) 50 Mg Cap 50 Mg PO TID Effexor XR 24 HR (Venlafaxine HCl) 150 Mg Cap 150 Mg PO DAILY Amlodipine (Amlodipine Besylate) 5 Mg Tab 5 Mg PO DAILY Review of Systems Except as stated in HPI: all other systems reviewed are Neg Physical Exam Narrative GENERAL: 36yo M not in distress. SKIN: Focused skin assessment warm/dry. HEAD: Atraumatic. Normocephalic. EYES: Pupils equal and round at 4mm bilaterally. EOMI. No scleral icterus. No injection or drainage. ENT: No nasal bleeding or discharge. Mucous membranes pink and moist. NECK: Trachea midline. No JVD. CARDIOVASCULAR: Regular rate and rhythm. No murmur appreciated. RESPIRATORY: No accessory muscle use. Clear to auscultation. Breath sounds equal bilaterally. GASTROINTESTINAL: Abdomen soft, non-tender, nondistended. No rebound tenderness or guarding. MUSCULOSKELETAL: No obvious deformities. No clubbing. No cyanosis. No edema. NEUROLOGICAL: Awake and alert. No obvious cranial nerve deficits. Motor grossly within normal limits. Normal speech. Data Data Last Documented VS Vital Signs Date Time Temp Pulse Resp B/P (MAP) Pulse Ox O2 Delivery O2 Flow Rate FiO2 12/25/16 01:29 68 14 131/62 (85) 99 12/24/16 22:25 Room Air 12/24/16 21:[address] Brain W/O Iv Contrast(Rout) (12/24/16 ) Electrocardiogram (12/24/16 ) Complete Blood Count With Diff (12/24/16 22:50) Basic Metabolic Panel (Bmp) (12/24/16 22:50) Sodium Chlor 0.9% 1000 Ml Inj (Ns 1000 M (12/25/16 00:00) Creatine Kinase (Cpk) (12/24/16 23:00) Troponin I (12/24/16 23:00) Labs Laboratory Tests Test 12/24/16 23:00 White Blood Count 8.4 TH/MM3 Red Blood Count 4.02 MIL/MM3 Hemoglobin 12.7 GM/DL Hematocrit 37.2 % Mean Corpuscular Volume 92.6 FL Mean Corpuscular Hemoglobin 31.7 PG Mean Corpuscular Hemoglobin Concent 34.2 % Red Cell Distribution Width 13.8 % Platelet Count 295 TH/MM3 Mean Platelet Volume 7.5 FL Neutrophils (%) (Auto) 44.3 % Lymphocytes (%) (Auto) 38.5 % Monocytes (%) (Auto) 12.0 % Eosinophils (%) (Auto) 4.1 % Basophils (%) (Auto) 1.1 % Neutrophils # (Auto) 3.7 TH/MM3 Lymphocytes # (Auto) 3.2 TH/MM3 Monocytes # (Auto) 1.0 TH/MM3 Eosinophils # (Auto) 0.3 TH/MM3 Basophils # (Auto) 0.1 TH/MM3 CBC Comment DIFF FINAL Differential Comment Blood Urea Nitrogen 30 MG/DL Creatinine 2.13 MG/DL Random Glucose 101 MG/DL Calcium Level 8.8 MG/DL Sodium Level 135 MEQ/L Potassium Level 4.4 MEQ/L Chloride Level 100 MEQ/L Carbon Dioxide Level 28.7 MEQ/L Anion Gap 6 MEQ/L Estimat Glomerular Filtration Rate 35 ML/MIN Total Creatine Kinase 192 U/L Troponin I LESS THAN 0.02 NG/ML MDM Medical Decision Making Medical Screen Exam Complete: Yes Emergency Medical Condition: Yes Interpretation(s) EKG: NSR 77bpm. ST elevation in V3, looks like early repolarization. Does not look like brugada pattern. Differential Diagnosis Vasovagal syncope vs. Arrythmia vs. dehydration vs. bipolar disorder Narrative Course 36yo M with episode of syncope after standing up and feeling light headed. Labs reviewed, no leukocytosis. Hemoglobin low at 12.7, at baseline. Creatinine elevated at 2.13. Pt was recently admitted for MARI and was instructed to hold lisinopril. Pt given NS IVF. CPK 192. Troponin negative. No focal neurologic deficits. CT brain negative. Pt was admitted on 12/15-12/16/16 for dizziness and MARI. He then returned and was admitted for MARI and possible syncope 12/17/16-12/19/16. Pt reevaluated after NS IVF and is feeling better. Pt ambulating in the ED with normal gait and no dizziness. Instructed pt to hydrate and follow up with PMD. Return precautions given. Diagnosis Primary Impression: Elevated serum creatinine Patient Instructions: General Instructions Departure Forms: Tests/Procedures Additional Instructions: Please follow up with your primary physician regarding your elevated creatinine and possible further evaluation of your syncope. Return to the ED if symptoms worsen. Med/Other Pt SpecificInfo: No Change to Meds Disposition: 01 DISCHARGE HOME Condition: Stable Livia Agustin DO Dec 24, 2016 23:06
[2016-12-24 23:28] LABS: AUTOMATED NEUTROPHIL # 3.7 TH/MM3 (1.8-7.7); BASOPHIL # 0.1 TH/MM3 (0-0.2); BASOPHIL % 1.1 % (0.0-2.0); EOSINOPHIL # 0.3 TH/MM3 (0-0.4); EOSINOPHIL % 4.1 % (0.0-4.0); HEMATOCRIT 37.2 % (39.0-51.0); HEMO FLAGS DIFF FINAL; LYMPH % 38.5 % (9.0-44.0); LYMPHOCYTE # 3.2 TH/MM3 (1.0-4.8); MEAN CELL VOLUME 92.6 FL (80.0-100.0); MEAN CORPUSCULAR HEMOGLOBIN 31.7 PG (27.0-34.0); MEAN CORPUSCULAR HGB CONC 34.2 % (32.0-36.0); NEUT % 44.3 % (16.0-70.0); PLATELET COUNT 295 TH/MM3 (150-450); RED BLOOD COUNT 4.02 MIL/MM3 (4.50-5.90); RED CELL DISTRIBUTION WIDTH 13.8 % (11.6-17.2); WHITE BLOOD COUNT 8.4 TH/MM3 (4.0-11.0)
--- NOTE | 2016-12-24 23:31 | RADRPT ---
EXAM DATE/TIME: 12/24/2016 23:05 [facility] COMPARISON: CT BRAIN W/O CONTRAST, December 15, 2016, 15:21. INDICATIONS : Near syncope, dizzy and blurry vision. RADIATION DOSE: 37.93 CTDIvol (mGy) MEDICAL HISTORY : Hypertension. Hepatitis C. Methicillin-resistant Staphylococcus aureus. SURGICAL HISTORY : Tonsillectomy. ENCOUNTER: Initial ACUITY: 1 day PAIN SCALE: 0/10 LOCATION: cranial TECHNIQUE: Multiple contiguous axial images were obtained of the head. Using automated exposure control and adj ustment of the mA and/or kV according to patient size, radiation dose was kept as low as reasonably a chievable to obtain optimal diagnostic quality images. DICOM format image data is available electro nically for review and comparison. FINDINGS: CEREBRUM: The ventricles are normal for age. No evidence of midline shift, mass lesion, hemorrhage or acute in farction. No extra-axial fluid collections are seen. POSTERIOR FOSSA: The cerebellum and brainstem are intact. The 4th ventricle is midline. The cerebellopontine angle i s unremarkable. EXTRACRANIAL: The visualized portion of the orbits is intact. SKULL: The calvaria is intact. No evidence of skull fracture. CONCLUSION: Negative exam. No change from prior. Matthew Caicedo MD on December 24, 2016 at 23:28 Board Certified Radiologist. This report was verified electronically.
[2016-12-24 23:42] LABS: ANION GAP 6 MEQ/L (5-15); BICARBONATE 28.7 MEQ/L (21.0-32.0); BLOOD UREA NITROGEN 30 MG/DL (7-18); CHLORIDE 100 MEQ/L (98-107); GLOMERULAR FILTRATION RATE 35 ML/MIN (>89); POTASSIUM 4.4 MEQ/L (3.5-5.1); SODIUM (NA) 135 MEQ/L (136-145)
[2016-12-25] MEDS ORDERED: SODIUM CHLOR 0.9% 1000 ML INJ 1,000 ML IV ONE
[2016-12-25 00:19] LABS: CREATINE KINASE 192 U/L (39-308)
[2016-12-25 01:29] VITALS: BP 131/62
--- NOTE | 2016-12-25 14:20 | EKG ---
Date Performed: 12/24/2016 Time Performed: 23:15:13 PTAGE: 36 years EKG: Sinus rhythm Slight ST change of early repolarization Prominent voltage, probably normal for age Compared to prio r tracing no significant change BORDERLINE ECG PREVIOUS TRACING : 12/17/2016 23.42 DOCTOR: Candelario Harvey Interpretating Date/Time 12/25/2016 14:19:26
== END 2016-12-25 01:30 | disposition home or self-care (01) ==
LOC: NEPD 21:31
DX: R79.89 Other specified abnormal findings of blood chemistry (principal); I10 Essential (primary) hypertension; Z72.0 Tobacco use
CPT/HCPCS: 70450; 80048; 82550; 84484; 85025; 93005; 96360; 99285; J7030